=== PATIENT | male | born 1955 | race Caucasian/White ===

== ENCOUNTER 2016-06-25 01:44 | Inpatient (IN) ==
[2016-06-25] MEDS ORDERED: Ipratropium/Albuterol Neb 3 ML ONE ×2 (01:51→02:04)
[2016-06-25 02:02] LABS: ABG Base Excess 11.5 mEq/L (-2.0 to 3.0); ABG HCO3 38.9 mEQ/L (21-27); ABG Oxygen Saturation 92 % (95-98); ABG PCO2 60 mmHg (35-45); ABG PH 7.42 pH Units (7.32-7.45); ABG PO2 64 mmHg (85-104); ABG TCO2 40.7 mEq/L (20-26)
[2016-06-25 02:03] LABS: Blood Gas Liter Flow 4 L/MIN
[2016-06-25 02:10] LABS: Hematocrit 46.3 % (37.5-50.1); Hemoglobin 15.2 g/dL (12.9-16.9); Immature Granulocytes % 0.2 % (0-4); Lymphocytes # 0.4 K/mcL (0.6-4.6); Mean Corpuscular HGB Conc 32.8 g/dL (31.6-35.5); Mean Corpuscular Hemoglobin 32.5 pg (28.0-33.3); Mean Corpuscular Volume 99.1 fL (83.0-100.0); Mean Platelet Volume 9.2 fL (9.4-12.4); Monocytes # 0.4 K/mcL (0.0-1.3); Neutrophils # 3.6 K/mcL (1.6-8.9); Platelet Count 137 K/mcL (140-400); Red Blood Count 4.67 M/mcL (4.19-5.50); Red Cell Distribution Width 12.3 % (11.5-14.5); Segmented Neutrophils % 81.8 %
[2016-06-25] MEDS ORDERED: Ipratropium/Albuterol Neb 3 ML IH ONE ×2 (02:10→09:51)
[2016-06-25 02:24] LABS: BUN/Creatinine Ratio 25 (6-26); Blood Urea Nitrogen 19 mg/dL (8-26); Carbon Dioxide 34 mEq/L (19-29); Chloride 98 mEq/L (98-109); Glucose 102 mg/dL (70-99); Osmolality,Calculated 292 (280-300); Sodium 140 mEq/L (136-145); eGFR For African Americans > 60 (> 60); eGFR For Non-African Americans > 60 (> 60)
--- NOTE | 2016-06-25 02:25 | Emergency Department Note ---
Disposition Clinical Impression: Hospital acquired PNA Dyspnea Qualifiers: Dyspnea type: unspecified Qualified Code(s): R06.00 - Dyspnea, unspecified Disposition: Admitted As Inpatient Condition: Fair Referrals: Roberto Hensley CNP [Primary Care Provider] - Forms: ED Satisfaction Letter Time of Disposition: 04:36 SOB HPI - General Chief Complaint: ED Shortness of Breath/Dyspnea Stated Complaint: Dyspnea Time Seen by Provider: 06/25/16 01:51 Source: patient, family Mode of arrival: ambulatory Nursing Notes Reviewed: Yes Vital Signs Reviewed: Yes - History of Present Illness 60-year-old male presents to the emergency Department by private vehicle in respiratory distress. The patient was recently discharged yesterday evening from [facility] after a 2 day admission for the same. At this time, he did require the use of BiPAP to manage his respirations. At this time, his only complaints are of shortness of breath and a persistent cough. He denies any fever, chills, nausea, vomiting, diarrhea, or abdominal pain. He denies any chest pain associated with this shortness of breath. Patient states that he sees the weight tester here for common area nodules. He also states that he has a history of a partially collapsed lung, as well as renal cancer, for which she is currently undergoing treatment for. Pt Subjective Complaint: shortness of breath Onset (ago): [employer] Context: recent illness Severity: severe Improves with: nothing Worsens with: nothing Associated symptoms: Reports: wheezing. Denies: chest pain Treatment prior to arrival: none Cough present: Yes - Related Data Home Medications Medication Instructions Recorded Confirmed TraMADol [Ultram] 50 mg PO TID PRN 12/10/15 01/07/16 Fluticasone/Salmeterol [Advair 1 puff IH BID 01/07/16 01/14/16 250-50 Diskus] Ipratropium/Albuterol Neb [Duoneb] 3 ml IH TID 01/07/16 01/14/16 Methocarbamol [Robaxin] 750 mg PO Q4H 01/07/16 01/14/16 Nicotine Patch [Nicoderm] 7 mg TD DAILY 01/07/16 01/14/16 Nicotine Patch [Nicoderm] 14 mg TD DAILY 01/07/16 01/14/16 Nicotine Patch [Nicoderm] 21 mg TD DAILY 01/07/16 01/14/16 Previous Rx's Medication Instructions Recorded Loperamide [Imodium] 2 mg PO TID #90 capsule 12/31/15 Ondansetron [Zofran] 4 mg PO Q8HR #90 tablet 12/31/15 Ondansetron HCl 4 mg PO Q8H PRN #60 tablet 02/07/16 Amoxicillin/Clavulanate [Augmentin] 500 mg PO BIDWM #10 tablet 03/06/16 Albuterol Sulfate [Proair Hfa] 2 puff IH Q4H PRN #1 hfa.aer.ad 04/06/16 Omeprazole [PriLOSEC] 20 mg PO DAILY PRN #45 cap 04/14/16 Oxycodone HCl [Oxaydo] 5 mg PO BID PRN #60 tablet.orl 05/12/16 Temazepam [Restoril] 15 mg PO HS #30 capsule 05/12/16 Pazopanib HCl [Votrient] 800 mg PO DAILY #120 tablet 06/10/16 Allergies Allergy/AdvReac Type Severity Reaction Status Date / Time No Known Allergies Allergy Verified 12/10/15 15:06 All systems ED: reviewed and negative except as stated. Constitutional: Denies: fever, chills, weakness, weight change Eyes: Denies: eye pain, eye discharge, vision change ENT ED: Denies: ear pain, throat pain, dental pain, hearing loss, epistaxis, congestion, dysphagia Cardiovascular: Denies: chest pain, palpitations, dyspnea on exertion, edema, syncope Respiratory: Reports: as per HPI, cough, dyspnea. Denies: wheezes, hemoptysis, stridor Gastrointestinal: Denies: abdominal pain, nausea, vomiting, diarrhea, constipation, hematemesis, melena, hematochezia Genitourinary: Denies: urgency, dysuria, frequency, hematuria Musculoskeletal: Denies: back pain, neck pain, arthralgia, myalgia Integumentary: Denies: rash, abrasion, lesions Neurological: Denies: headache, weakness, numbness, paresthesias, confusion, abnormal gait, vertigo Psychiatric: Denies: anxiety, depression, suicidal thoughts, homicidal thoughts , auditory hallucinations, visual hallucinations Endocrine: Denies: fatigue Hematological/Lymphatic: Denies: easy bleeding, easy bruising Allergic/Immunologic: Denies: facial swelling, urticaria Past Medical History - Past Medical History Attestation: Yes The following information was validated with the patient. Source: patient Medical history: Reports: cancer, COPD, GERD Surgical history: Reports: no surgical history Psychiatric history: Reports: no psych history - Social History Smoking Status: Current some day smoker Smokeless Tobacco Status: No Alcohol use: Reports: none Drug use: Reports: none Physical Exam - General General appearance: alert, in distress - Head Head exam: atraumatic, normocephalic, normal inspection - Eye Eye exam: Present: normal appearance, PERRL, EOMI. Absent: nystagmus - ENT ENT exam: mucous membranes moist - Neck Neck exam: Present: normal inspection, full ROM, trachea midline - Chest Chest inspection: Present: normal inspection, symmetric chest wall rise - Respiratory Respiratory exam: Present: respiratory distress (Moderate), wheezes (expiratory wheezes noted throughout the lung periphery.). Absent: stridor, accessory muscle use, prolonged expiratory phase - Cardiovascular Cardiovascular exam: Present: regular rate, normal rhythm, normal heart sounds - Abdominal Exam Abdominal exam: Present: soft, Non-Tender, normal bowel sounds. Absent: tenderness, distention, guarding, rebound, rigidity - Extremities Exam Extremities exam: Present: normal inspection, full ROM. Absent: tenderness, pedal edema - Neurological Exam Neurological exam: Present: alert, oriented X3 - Psychiatric Psychiatric exam: Present: normal affect, normal mood - Skin Skin exam: Present: warm, dry, intact, normal color Course Course Narrative: I have discussed this patient's case with Dr. Casey. Dr. Casey has had a [id number] evaluation with the patient. 0430: I spoke to Dr. Guzman, hospitalist. Dr. Albarran requests the obtaining of blood cultures prior to admission to the hospitalist service. Vital Signs Temperature 98.1 F 06/25/16 01:46 Pulse Rate 117 06/25/16 01:46 Respiratory Rate 30 06/25/16 01:46 Blood Pressure 113/87 06/25/16 01:46 O2 Sat by Pulse Oximetry 86 06/25/16 01:46 Temperature 98.1 F 06/25/16 01:46 Pulse Rate 118 06/25/16 04:22 Respiratory Rate 22 06/25/16 04:22 Blood Pressure 117/78 06/25/16 04:22 O2 Sat by Pulse Oximetry 92 06/25/16 04:22 Oxygen Delivery Oxygen Delivery Nasal Cannula Shortness of Breath/Dyspnea - Medical Records Medical records reviewed: Yes I reviewed the patient's medical records. - Lab Data Lab results reviewed: Yes I reviewed the patient's lab results. Lab results narrative: Laboratory Last Values WBC 4.4 K/mcL (4.3-11.1) 06/25/16 02:03 RBC 4.67 M/mcL (4.19-5.50) 06/25/16 02:03 Hgb 15.2 g/dL (12.9-16.9) 06/25/16 02:03 Hct 46.3 % (37.5-50.1) 06/25/16 02:03 MCV 99.1 fL (83.0-100.0) 06/25/16 02:03 MCH 32.5 pg (28.0-33.3) 06/25/16 02:03 MCHC 32.8 g/dL (31.6-35.5) 06/25/16 02:03 RDW 12.3 % (11.5-14.5) 06/25/16 02:03 Plt Count 137 K/mcL (140-400) L 06/25/16 02:03 MPV 9.2 fL (9.4-12.4) L 06/25/16 02:03 Immature Gran % 0.2 % (0-4) 06/25/16 02:03 Seg Neutrophils % 81.8 % 06/25/16 02:03 Lymphocytes % 10.0 % 06/25/16 02:03 Monocytes % 8.0 % 06/25/16 02:03 Eosinophils % 0.0 % 06/25/16 02:03 Basophils % 0.0 % 06/25/16 02:03 Neutrophils # 3.6 K/mcL (1.6-8.9) 06/25/16 02:03 Lymphocytes # 0.4 K/mcL (0.6-4.6) L 06/25/16 02:03 Monocytes # 0.4 K/mcL (0.0-1.3) 06/25/16 02:03 Eosinophils # 0.0 K/mcL (0.0-0.6) 06/25/16 02:03 Basophils # 0.0 K/mcL (0.0-0.2) 06/25/16 02:03 Platelet Estimate Slight Decrease (Normal) L 06/25/16 02:03 ABG pH 7.42 pH Units (7.32-7.45) 06/25/16 01:57 ABG pCO2 60 mmHg (35-45) H 06/25/16 01:57 ABG pO2 64 mmHg (85-104) L 06/25/16 01:57 ABG HCO3 38.9 mEQ/L (21-27) H 06/25/16 01:57 ABG Total CO2 40.7 mEq/L (20-26) H 06/25/16 01:57 ABG O2 Saturation 92 % (95-98) L 06/25/16 01:57 ABG Base Excess 11.5 mEq/L (-2.0 to 3.0) H 06/25/16 01:57 Liter Flow 4 L/MIN 06/25/16 01:57 Blood Gas Modality NC 06/25/16 01:57 Sodium 140 mEq/L (136-145) 06/25/16 02:03 Potassium 4.0 mEq/L (3.5-4.5) 06/25/16 02:03 Chloride 98 mEq/L (98-109) 06/25/16 02:03 Carbon Dioxide 34 mEq/L (19-29) H 06/25/16 02:03 BUN 19 mg/dL (8-26) 06/25/16 02:03 Creatinine 0.75 mg/dL (0.72-1.25) 06/25/16 02:03 Est GFR ( Amer) > 60 (> 60) 06/25/16 02:03 Est GFR (Non-Af Amer) > 60 (> 60) 06/25/16 02:03 BUN/Creatinine Ratio 25 (6-26) 06/25/16 02:03 Glucose 102 mg/dL (70-99) H 06/25/16 02:03 Calculated Osmolality 292 (280-300) 06/25/16 02:03 Calcium 9.0 mg/dL (8.6-10.8) 06/25/16 02:03 Troponin I 0.11 ng/mL (0-0.03) H* 06/25/16 02:03 B-Natriuretic Peptide 920 pg/mL (0-100) H 06/25/16 02:03 Result diagrams: 06/25/16 02:03 06/25/16 02:03 Lab Results 06/25/16 06/25/16 06/25/16 Range/Units 01:57 02:03 02:03 WBC 4.4 (4.3-11.1) K/mcL RBC 4.67 (4.19-5.50) M/mcL Hgb 15.2 (12.9-16.9) g/dL Hct 46.3 (37.5-50.1) % MCV 99.1 (83.0-100.0) fL MCH 32.5 (28.0-33.3) pg MCHC 32.8 (31.6-35.5) g/dL RDW 12.3 (11.5-14.5) % Plt Count 137 L (140-400) K/mcL MPV 9.2 L (9.4-12.4) fL Immature Gran % 0.2 (0-4) % Seg Neutrophils % 81.8 % Lymphocytes % 10.0 % Monocytes % 8.0 % Eosinophils % 0.0 % Basophils % 0.0 % Neutrophils # 3.6 (1.6-8.9) K/mcL Lymphocytes # 0.4 L (0.6-4.6) K/mcL Monocytes # 0.4 (0.0-1.3) K/mcL Eosinophils # 0.0 (0.0-0.6) K/mcL Basophils # 0.0 (0.0-0.2) K/mcL Platelet Estimate Slight Decrease L (Normal) ABG pH 7.42 (7.32-7.45) pH Units ABG pCO2 60 H (35-45) mmHg ABG pO2 64 L (85-104) mmHg ABG HCO3 38.9 H (21-27) mEQ/L ABG Total CO2 40.7 H (20-26) mEq/L ABG O2 Saturation 92 L (95-98) % ABG Base Excess 11.5 H (-2.0 to 3.0) mEq/L Liter Flow 4 L/MIN Blood Gas Modality NC Sodium 140 (136-145) mEq/L Potassium 4.0 (3.5-4.5) mEq/L Chloride 98 (98-109) mEq/L Carbon Dioxide 34 H (19-29) mEq/L BUN 19 (8-26) mg/dL Creatinine 0.75 (0.72-1.25) mg/dL Est GFR ( Amer) > 60 (> 60) Est GFR (Non-Af Amer) > 60 (> 60) BUN/Creatinine Ratio 25 (6-26) Glucose 102 H (70-99) mg/dL Calculated Osmolality 292 (280-300) Calcium 9.0 (8.6-10.8) mg/dL Troponin I (0-0.03) ng/mL B-Natriuretic Peptide (0-100) pg/mL 06/25/16 06/25/16 Range/Units 02:03 02:03 WBC (4.3-11.1) K/mcL RBC (4.19-5.50) M/mcL Hgb (12.9-16.9) g/dL Hct (37.5-50.1) % MCV (83.0-100.0) fL MCH (28.0-33.3) pg MCHC (31.6-35.5) g/dL RDW (11.5-14.5) % Plt Count (140-400) K/mcL MPV (9.4-12.4) fL Immature Gran % (0-4) % Seg Neutrophils % % Lymphocytes % % Monocytes % % Eosinophils % % Basophils % % Neutrophils # (1.6-8.9) K/mcL Lymphocytes # (0.6-4.6) K/mcL Monocytes # (0.0-1.3) K/mcL Eosinophils # (0.0-0.6) K/mcL Basophils # (0.0-0.2) K/mcL Platelet Estimate (Normal) ABG pH (7.32-7.45) pH Units ABG pCO2 (35-45) mmHg ABG pO2 (85-104) mmHg ABG HCO3 (21-27) mEQ/L ABG Total CO2 (20-26) mEq/L ABG O2 Saturation (95-98) % ABG Base Excess (-2.0 to 3.0) mEq/L Liter Flow L/MIN Blood Gas Modality Sodium (136-145) mEq/L Potassium (3.5-4.5) mEq/L Chloride (98-109) mEq/L Carbon Dioxide (19-29) mEq/L BUN (8-26) mg/dL Creatinine (0.72-1.25) mg/dL Est GFR ( Amer) (> 60) Est GFR (Non-Af Amer) (> 60) BUN/Creatinine Ratio (6-26) Glucose (70-99) mg/dL Calculated Osmolality (280-300) Calcium (8.6-10.8) mg/dL Troponin I 0.11 H* (0-0.03) ng/mL B-Natriuretic Peptide 920 H (0-100) pg/mL - Radiology Data Radiology results reviewed: Yes I reviewed the patient's radiology results. Chest X-Ray 06/25/16 01:57 IMPRESSION: 1. New moderate area of consolidation the right middle lobe. 2. Mild blunting of left costophrenic angle may represent a trace effusion. 3. Emphysema. 4. Redemonstration of mediastinal hilar lymphadenopathy, including large calcified right hilar lymph nodes. D/ / Thierry Singer MD / Thierry Singer MD Interpreting Provider: Thierry Singer MD Chest CTA 06/25/16 03:04 IMPRESSION: 1. No evidence of pulmonary embolism or acute pulmonary abnormality. 2. New large area of consolidation replacing most of the right middle lobe. Additional scattered airspace and reticular opacities in the right upper, right lower and left lower lobes. Overall findings are suspicious for multifocal pneumonia. 3. Stable mediastinal hilar lymphadenopathy. 4. Partial visualization of a large right renal mass. 5. Reflux of contrast into the intrahepatic veins suggestive of right heart dysfunction. D/ / Thierry Singer MD / Thierry Singer MD Interpreting Provider: Thierry Singer MD - EKG Data EKG attestation: Yes I reviewed and interpreted this EKG. EKG results narrative: EKG reviewed by Dr. Osman as well. EKG shows a sinus rhythm with frequent ventricular premature complexes and a marked right axis deviation. There is also a septal myocardial infarction of indeterminate age that was present on his most recent EKG dated 01/06/16.
[2016-06-25 02:29] LABS: Platelet Estimate Slight Decrease (Normal)
[2016-06-25] MEDS ORDERED: Piperacillin/Tazobactam 3.375 GM in D5% in Water (Mini-Bag+) 100 ML IVPB ONE (04:16)
[2016-06-25] MEDS ORDERED: Aspirin 81 MG TAB.CHEW PO ONE (04:16)
[2016-06-25 05:04] LABS: Alanine Aminotransferase 25 Units/L (0-55); Albumin 3.1 g/dL (3.5-5.0); Albumin/Globulin Ratio 0.9 (1.1-2.2); Alkaline Phosphatase 90 Units/L (38-126); Aspartate Amino Transferase 29 Units/L (5-34); Bilirubin,Direct 0.3 mg/dL (0.0-0.5); Bilirubin,Indirect 0.3 mg/dL (0.0-1.2); Bilirubin,Total 0.6 mg/dL (0.2-1.2); Globulin 3.6 g/dL (2.4-3.5); Total Protein 6.7 g/dL (6.0-8.3)
[2016-06-25] MEDS ORDERED: methylPREDNISolone 125 MG/2 ML VIAL IVP ONE (08:34)
[2016-06-25] MEDS ORDERED: Albuterol 2.5 MG/3 ML NEBULIZER IH ONE (08:34)
[2016-06-25] MEDS ORDERED: *HR* Heparin 5,000 UNIT/ML VIAL IVP PRN ×2 (08:40)
[2016-06-25] MEDS ORDERED: *HR* Heparin 5,000 UNIT/ML VIAL IVP ONE (08:40)
[2016-06-25] MEDS ORDERED: Simethicone 80 MG TAB.CHEW PO PRN (08:44)
[2016-06-25] MEDS ORDERED: Heparin 25,000 UNIT/500 ML D5W 25,000 UNIT/500 ML MLS IVC SCH (08:45)
--- NOTE | 2016-06-25 08:53 | Internal Med History&Physical ---
Date of Encounter: 06/25/16 Time of Encounter: 08:47 Assessment and Plan (1) Hypercapnic respiratory failure Current visit: Yes Status: Acute -Respiratory failure multifactorial due to healthcare associated pneumonia, COPD exacerbation, and congestive heart failure. Patient 15 L of NASAL oxygen during my interview still with accessory muscles use so he will be placed on BiPAP. Arterial blood gas will be obtained. He will be transferred to [address] [place] [address] for closer monitoring. He is full code Qualifiers: Qualified Code(s): J96.92 - Respiratory failure, unspecified with hypercapnia (2) HCAP (healthcare-associated pneumonia) Current visit: Yes Status: Acute He will be started on vancomycin Zosyn Levaquin. Sputum blood cultures (3) Acute congestive heart failure with left ventricular diastolic dysfunction Current visit: Yes Status: Acute IV lasix will be started. Carey catheter will be placed. strict monitoring of intake and output. Electrocardiogram shows T wave inversions in lateral chest leads. Pattern of EKG may suggest stress cardiomyopathy. However occlusive coronary artery disease has to be ruled out. (4) NSTEMI (non-ST elevated myocardial infarction) Current visit: Yes Status: Acute Troponin 0.11. He is denying any chest pain. Because of his EKG changes I will start the patient on low-dose heparin drip. Aspirin will be started. I will hold off metoprolol for now given his respiratory status (5) Renal cell carcinoma of right kidney Current visit: No Status: Chronic Internal Medicine - H&P: HPI Chief complaint: SOB History of present illness: Mr. Abrams is a 60 year old male with unfortunate history of recently diagnosed metastatic renal cell carcinoma, COPD started 2 weeks ago on nasal oxygen and reactive airway disease presents to the emergency room today with main complaint shortness of breath. Patient has been progressively short of breath over the past week or so. He was hospitalized with an outside facility during which she has required BiPAP support and was discharged 2 days ago to home. He was not on any antibiotics. He notices decline in his respiratory status; is currently more short of breath at rest, sitting upright as this position helps him breath better. He is having a nonproductive cough, and frequent episodes of sweating related to his severe respiratory distress. He denies any chest pain. No hemoptysis. No lower extremity swelling. During my interview with the patient he was tripoding with accessory muscles use, speaking in two word sentences. Past Med Surg Social Fam HX - Past Medical History Medical history: cancer, COPD, GERD Psychiatric history: no psych history - Past Surgical History Surgical History: no surgical history - Social History Smoking Status: Current some day smoker Smokeless Tobacco Status: No Alcohol use: none Drug use: none - Family History Father Cause of : cancer Hx Family Cancer: Yes (esophageal cancer) Mother Cause of : pancreatic cancer Hx Family Cancer: Yes (pancreatic) Internal Medicine - H&P: Meds Fluticasone/Salmeterol [Advair 250-50 Diskus] 1 puff IH BID 01/07/16 [History] Ipratropium/Albuterol Neb [Duoneb] 3 ml IH TID 01/07/16 [History] Nicotine Patch [Nicoderm] 7 mg TD DAILY 01/07/16 [History] Ondansetron HCl 4 mg PO Q8H PRN #60 tablet 02/07/16 [Rx] Albuterol Sulfate [Proair Hfa] 2 puff IH Q4H PRN #1 hfa.aer.ad 04/06/16 [Rx] Omeprazole [PriLOSEC] 20 mg PO DAILY PRN #45 cap 04/14/16 [Rx] Oxycodone HCl [Oxaydo] 5 mg PO BID PRN #60 tablet.orl 05/12/16 [Rx] Pazopanib HCl [Votrient] 800 mg PO DAILY #120 tablet 06/10/16 [Rx] Acetaminophen [Tylenol] 1,000 mg PO Q6HR PRN 06/25/16 [History] Ipratropium/Albuterol Sulfate [Combivent Respimat Inhal [place]] 1 puff IH QID [History] PredniSONE [Prednisone] 10 mg PO AD 06/25/16 [History] Simethicone [Gas-X] 80 mg PO TID PRN 06/25/16 [History] Allergies No Known Allergies Allergy (Verified 12/10/15 15:06) All Systems PM: A 10-system review of systems was performed and is negative for pertinent findings except as documented above in the HPI. Review of systems: Ten point review of systems is negative except for HPI - Constitutional Vitals: Temp Pulse Resp BP Pulse Ox 98.0 F 106 20 142/93 95 06/25/16 06:07 06/25/16 06:07 06/25/16 06:07 06/25/16 06:07 06/25/16 06:51 Exam: Gen.: patient's alert in moderate respiratory distress cardiac: normal S1 S2 no additional sounds or murmurs tachycardic chest: diminished entry expiratory wheezing abdomen soft nontender nondistended normal bowel sounds lower extremities no swelling Internal Med - H&P Results - Labs CBC & Chem 7: 06/25/16 02:03 06/25/16 02:03
[2016-06-25] MEDS ORDERED: Vancomycin 1,500 MG in D5% in Water 250 ML IVPB ONE (09:00)
[2016-06-25] MEDS ORDERED: Piperacillin/Tazobactam 3.375 GM in D5% in Water (Mini-Bag+) 100 ML IVPB SCH (09:00)
[2016-06-25 09:04] LABS: ABG Base Excess 13.3 mEq/L (-2.0 to 3.0); ABG HCO3 40.8 mEQ/L (21-27); ABG Oxygen Saturation 99 % (95-98); ABG PCO2 60 mmHg (35-45); ABG PH 7.44 pH Units (7.32-7.45); ABG PO2 128 mmHg (85-104); ABG TCO2 42.6 mEq/L (20-26)
[2016-06-25 09:05] LABS: Blood Gas FiO2 40 %
[2016-06-25] MEDS: Furosemide 40 MG/4 ML VIAL IVP SCH (09:06)
[2016-06-25 09:27] LABS: INR 1.1; Prothrombin Time 11.9 Seconds (9.4-12.1)
[2016-06-25] MEDS ORDERED: Chloraseptic Spray 177 ML BOTTLE MM PRN (09:27)
[2016-06-25 09:30] LABS: Activated Partial Thrombo Time 30.8 Seconds (26.0-36.0)
[2016-06-25 09:37] LABS: Hematocrit 48.3 % (37.5-50.1); Hemoglobin 15.8 g/dL (12.9-16.9); Mean Corpuscular HGB Conc 32.7 g/dL (31.6-35.5); Mean Corpuscular Hemoglobin 32.7 pg (28.0-33.3); Mean Platelet Volume 9.8 fL (9.4-12.4); Platelet Count 146 K/mcL (140-400); Red Blood Count 4.83 M/mcL (4.19-5.50); Red Cell Distribution Width 12.4 % (11.5-14.5)
[2016-06-25] MEDS: Ipratropium/Albuterol Neb 3 ML IH SCH ×5 (10:05→23:41)
[2016-06-25] MEDS: Pantoprazole 40 MG VIAL IVP SCH (10:46)
[2016-06-25] MEDS: Nicotine 7 MG PATCH.TD24 TD SCH (10:46)
[2016-06-25] MEDS: Aspirin Enteric Coated 81 MG Tablet PO SCH (10:46)
[2016-06-25] MEDS: Budesonide/Formoterol 80/4.5 MDI IH SCH ×2 (10:47→19:54)
--- NOTE | 2016-06-25 11:38 | Cardiology Consult Note ---
Date of Encounter: 06/25/16 Time of Encounter: 11:25 Assessment and Plan (1) Elevated troponin Current Visit: Yes Status: Acute Mild troponin elevation in the setting of acute hypoxic and hypercapnic respiratory distress/ pneumonia. Denies chest pain. Labored respirations on my exam. Denies previous history of CAD. Check TTE. CTA negative for PE. Continue heparin gtt for now. Asa, statin, and BB. (2) Abnormal EKG Current Visit: Yes Status: Acute Inferior and anterior/lateral T wave changes on EKG. May be secondary to demand ischemia from acute repiratory failure. Serial EKG. Check TTE. (3) Hypercapnic respiratory failure Current Visit: Yes Status: Acute Acute respiratory failure likely secondary to pnuemonia/COPD. Denies weight gain or edema. No history of CHF. BNP is elevated at 902 and CTA showed finding concerning for right sided dysfunction. Agree with TTE to further evaluate. Also known renal cell cancer with mets to lung/ previous partial collapsed lung. Follows with pulmonology and oncology. Currently on Pazopanib over last 6 months. Qualifiers: Qualified Code(s): J96.92 - Respiratory failure, unspecified with hypercapnia (4) HCAP (healthcare-associated pneumonia) Current Visit: Yes Status: Acute Management per IM. On IV antibiotics. Discussion w patient/family: The assessment and plan as outlined above was discussed with the patient and/or family members who expressed understanding and agreement. All questions were answered. Thank you for involving us in the care of your patient. Please call with any questions. History of Present Illness Consult date: 06/25/16 Requesting physician: Marcelo Alvarado Consult reason: elevated troponin, EKG changes Chief complaint: Increasing SOB History of present illness: Mr. Abrams is a 60 year old male who presents with increasing SOB over the last week. He was found to have right middle lobe pneumonia. Cardiology consulted for elevated troponin and EKG changes. He was recently hospitalized at outside hospital for COPD exacerbation. He was treated with bipap and breathing treatments. After being discharged his SOB increased. He denies chest pain. Denies weight gain or edema. He does admit to orthopnea and is declining to wear bi-pap because it makes him feel like he cannot breath. He has a history of renal cell carcinoma with mets to his lung diagnosed earlier this year, Currently on chemotherapy pill on home O2. He denies previous history of CAD or CHF. Denies previous cardiac work-up. Work-up this admission shows troponin elevation at 0.11, 0.12. EKG shows ST with new T wave inversion in the inferior and anterior lateral leads. There are frequent PVC. CTA of the chest is negative for PE but does show consolidation RML concerning for pneumonia, new from previous report. There was stable mediastinal lymphadenopathy, partial visualization of large right renal mass, and reflux of contrast into the intra-hepatic vein suggestive of right heart dysfunction. Echocardiogram is pending. Past Med Surg Social Fam HX - Past Medical History Attestation: Yes The following information was validated with the patient. Medical history: cancer, COPD, GERD Psychiatric history: no psych history - Past Surgical History Surgical History: no surgical history - Social History Smoking Status: Current some day smoker Smokeless Tobacco Status: No Alcohol use: none Drug use: none - Family History Father Cause of : cancer Hx Family Cancer: Yes (esophageal cancer) Mother Cause of : pancreatic cancer Hx Family Cancer: Yes (pancreatic) Medications and Allergies Fluticasone/Salmeterol [Advair 250-50 Diskus] 1 puff IH BID 01/07/16 [History] Ipratropium/Albuterol Neb [Duoneb] 3 ml IH TID 01/07/16 [History] Nicotine Patch [Nicoderm] 7 mg TD DAILY 01/07/16 [History] Ondansetron HCl 4 mg PO Q8H PRN #60 tablet 02/07/16 [Rx] Albuterol Sulfate [Proair Hfa] 2 puff IH Q4H PRN #1 hfa.aer.ad 04/06/16 [Rx] Omeprazole [PriLOSEC] 20 mg PO DAILY PRN #45 cap 04/14/16 [Rx] Oxycodone HCl [Oxaydo] 5 mg PO BID PRN #60 tablet.orl 05/12/16 [Rx] Pazopanib HCl [Votrient] 800 mg PO DAILY #120 tablet 06/10/16 [Rx] Acetaminophen [Tylenol] 1,000 mg PO Q6HR PRN 06/25/16 [History] Ipratropium/Albuterol Sulfate [Combivent Respimat Inhal [place]] 1 puff IH QID [History] PredniSONE [Prednisone] 10 mg PO AD 06/25/16 [History] Simethicone [Gas-X] 80 mg PO TID PRN 06/25/16 [History] Allergies No Known Allergies Allergy (Verified 12/10/15 15:06) All Systems Review: A 10-system review of systems was performed and is negative for pertinent findings except as documented above in the HPI. Physical Examination Vital Signs, Last 4 Hours Temp Pulse Resp BP Pulse Ox 06/25/16 11:19 97.5 F L 136 20 114/82 94 06/25/16 10:07 25 88 General: Conversant, Other (ill appearing, frail male. ) HEENT: Atraumatic, Normocephaly, Mucus Membranes Moist Neck: No JVD, Normal carotid pulses Cardiac: Reg Rate and Rhythm, Normal S1 and S2, No Murmur Lungs: Other (Pt sitting in tripod position with labored respirations. Lung sounds significantly decreased throughout with faint rails in right mid and upper lobes. ) Neuro: Alert and responsive, No focal deficits noted Abdomen: Soft, Non-Tender Skin: No rashes noted on visualized skin Musculoskeletal: No Chest Wall Tenderness Extremities: No Clubbing, No Cyanosis, No Edema, Normal Pulses Results 06/25/16 08:56 06/25/16 02:03 Lab Results 06/25/16 06/25/16 06/25/16 08:56 08:56 08:56 WBC 3.8 L Hgb 15.8 Hct 48.3 Plt Count 146 INR 1.1 APTT 30.8 Troponin I 0.12 H* Chest X-Ray 06/25/16 01:57 IMPRESSION: 1. New moderate area of consolidation the right middle lobe. 2. Mild blunting of left costophrenic angle may represent a trace effusion. 3. Emphysema. 4. Redemonstration of mediastinal hilar lymphadenopathy, including large calcified right hilar lymph nodes. D/ / Thierry Singer MD / Thierry Singer MD Interpreting Provider: Thierry Singer MD Chest CTA 06/25/16 03:04 IMPRESSION: 1. No evidence of pulmonary embolism or acute pulmonary abnormality. 2. New large area of consolidation replacing most of the right middle lobe. Additional scattered airspace and reticular opacities in the right upper, right lower and left lower lobes. Overall findings are suspicious for multifocal pneumonia. 3. Stable mediastinal hilar lymphadenopathy. 4. Partial visualization of a large right renal mass. 5. Reflux of contrast into the intrahepatic veins suggestive of right heart dysfunction. D/ / 06/25/2016 06:59:28 Thierry Singer MD / [facility] Interpreting Provider: Thierry Singer MD - Imaging and Cardiology Echo: pending - EKG Interpretation EKG results cardiology: personally reviewed Consult Discharge Plan - Plan Referrals: Roberto Hensley CNP [Primary Care Provider] -
[2016-06-25] MEDS ORDERED: Dexmedetomidine HCl 400 MCG/100 ML MLS IVC ONE (11:53)
[2016-06-25] MEDS ORDERED: methylPREDNISolone 125 MG/2 ML VIAL IVP SCH (12:00)
[2016-06-25] MEDS: Dexmedetomidine HCl 400 MCG/100 ML MLS IVC SCH (12:35)
--- NOTE | 2016-06-25 12:37 | Pulmonology History & Physical ---
<VishalYaw Joe - Last Filed: 06/25/16 12:35> Date of Encounter: 06/25/16 Time of Encounter: 12:00 Assessment and Plan (1) Acute congestive heart failure with left ventricular diastolic dysfunction Current visit: Yes Status: Acute 1. Hypercapnic respiratory failure In the setting of HCAP, COPD, and CHF. SIRS (+): HR 136, RR 20 Sepsis from pulmonary source. ABG CO2 on admission = 60. WBC 3.8. Likely secondary to chemotherapy, not sepsis. Lactate 1.7. - BiPap - Pressedex titrate to minimal dose for patient comfort. - Begin DuoNeb, Symbicort, Mucinex - Begin solumedrol 60mg IV Q8hr - Continue Levaquin, day 1 - Discontinue Zosyn to protect patient's renal function - Begin Ceftriaxone - Draw urine strep ag and legionella ag - Blood cultures pending - Sputum cultures pending 2. HCAP 25 Jun 2016: CXR: RML consolidation, RUL and RLL scattered opacities; consistent with multifocal pneumonia. - Plan as above. 3. Acute CHF with LV diastolic dysfunction No Cardiac Echo on record BNP 920 - Cardiac echo - Cardiology is following and their input appreciated. 4. NSTEMI No chest pain at this time. EKG in ER interpreted as - lateral T-wave inversions. Troponin 0.11 > 0.12 Demand ischemia vs NSTEMI. Repeat EKG in ICU at 13:58 06/25/16: Tracing somewhat obscured by PVCs. Sinus tachycardia with rate of 119, Frequent PVCs, Right axis, 5-8mm T-wave inversion in inferior and lateral leads, 1/2mm ST depression in inferior and lateral leads. Compared to previous EKG dated 01/06/16: Q-waves present in Va and V2. PVCs and STT changes are new. - Continue to trend troponin. - Continue ASA. - Continue low dose heparin IV drip. - Cardiology is following and their input appreciated. 5. Renal cell carcinoma of right kidney Diagnosed November 2015. Currently on PO chemotherapy. Oncologist: Imani Molina DVT Prophylaxis: On heparin drip as above. PUD prophylaxis: IV Protonix Diet: NPO for now. Assessing improvement on and toleration of BiPap. Keep NPO in case of intubation. Other: electrolyte protocol (2) HCAP (healthcare-associated pneumonia) Current visit: Yes Status: Acute Plan as above (3) Hypercapnic respiratory failure Current visit: Yes Status: Acute Plan as above Qualifiers: Qualified Code(s): J96.92 - Respiratory failure, unspecified with hypercapnia (4) NSTEMI (non-ST elevated myocardial infarction) Current visit: Yes Status: Acute Plan as above (5) Renal cell adenoma of right kidney Current visit: No Status: Chronic Plan as above History of Present Illness Chief complaint: dyspnea HPI: Mr. Abrams is a 60 year old male who presented to the ER this morning with ANDREW , was admitted to the medical floor for hypercapnic respiratory failure where he decompensated and was transferred to the ICU. On the floor, patient could not tolerate BiPao leading to his non-compliance leading to his decompensation. Currently he is in respiratory distress - accessory muscle use, tripoding, 2- 3 word conversational dyspnea on 4L NC, O2 sat 88%. He was discharged 2 days ago from outside hospital with similar symptoms. Overall, his dyspnea has been ongoing and progressive for the past week. History of COPD, basline O2 supplementation is 2L via NC at all times. History of right renal cell carcinoma, diagnosed Nov 2015, currently undergoing PO chemotherapy, oncologist = Dr. Alvarez at [place]. PMH: COPD, Rt renal cell carcinoma. No hx CAD, ACS, CHF. Habits: Tobacco dependence. Home COPD regimen: 2L NC supplemental O2, Advair, ProAir, Duoneb, prednisone 10mg. Oncologist: Dr. Alvarez Chemotherapy: Pazopanib 800mg PO Qdaily. Past Med Surg Social Fam HX - Past Medical History Medical history: cancer, COPD, GERD Psychiatric history: no psych history - Past Surgical History Surgical History: no surgical history - Social History Smoking Status: Current some day smoker Smokeless Tobacco Status: No Alcohol use: none Drug use: none - Family History Father Cause of : cancer Hx Family Cancer: Yes (esophageal cancer) Mother Cause of : pancreatic cancer Hx Family Cancer: Yes (pancreatic) Medications and Allergies Fluticasone/Salmeterol [Advair 250-50 Diskus] 1 puff IH BID 01/07/16 [History] Ipratropium/Albuterol Neb [Duoneb] 3 ml IH TID 01/07/16 [History] Nicotine Patch [Nicoderm] 7 mg TD DAILY 01/07/16 [History] Ondansetron HCl 4 mg PO Q8H PRN #60 tablet 02/07/16 [Rx] Albuterol Sulfate [Proair Hfa] 2 puff IH Q4H PRN #1 hfa.aer.ad 04/06/16 [Rx] Omeprazole [PriLOSEC] 20 mg PO DAILY PRN #45 cap 04/14/16 [Rx] Oxycodone HCl [Oxaydo] 5 mg PO BID PRN #60 tablet.orl 05/12/16 [Rx] Pazopanib HCl [Votrient] 800 mg PO DAILY #120 tablet 06/10/16 [Rx] Acetaminophen [Tylenol] 1,000 mg PO Q6HR PRN 06/25/16 [History] Ipratropium/Albuterol Sulfate [Combivent Respimat Inhal [place]] 1 puff IH QID [History] PredniSONE [Prednisone] 10 mg PO AD 06/25/16 [History] Simethicone [Gas-X] 80 mg PO TID PRN 06/25/16 [History] Allergies No Known Allergies Allergy (Verified 12/10/15 15:06) All Systems: A 10-system review of systems was performed and is negative for pertinent findings except as documented above in the HPI. - Constitutional Constitutional: fatigue, no fever(s), no headache(s) - EENT Nose, mouth and throat: no dizziness, no dysphagia, no headache(s) - Cardiovascular Cardiovascular: dyspnea, no chest pain, no diaphoresis, no edema, no lightheadedness, no palpitations - Respiratory Respiratory: cough, dyspnea, wheezing, no hemoptysis, no pain with cough - Gastrointestinal Gastrointestinal: no abdominal pain, no diarrhea, no hematochezia, no melena, no nausea, no vomiting - Musculoskeletal Musculoskeletal: no back pain, no neck pain - Neurological Neurological: no confusion, no focal weakness, no lack of coordination, no loss of vision, no numbness, no paresthesias Physical Examination Vital Signs: Vital Signs, Last 4 Hours Temp Pulse Resp BP Pulse Ox 06/25/16 12:04 132 06/25/16 11:19 97.5 F L 136 20 114/82 94 06/25/16 10:07 25 88 Tachycardic, tachypnic, hypoxia with O2 sat 86-88% on supplemental O2. General appearance: alert, appears uncomfortable, other (Cachectic. Respiratory distress - accessory mm use, tripoding, 2-3 word conversational dyspnea on 4L NC.) Eyes: nonicteric ENT: oropharynx moist Neck: supple, no JVD Effort: very labored Auscultation: bilateral: wheezes, rales Cardiovascular: regular rate and rhythm Gastrointestinal: normoactive bowel sounds, soft, non-tender, non-distended Integumentary: normal Extremities: no cyanosis, no edema, pink and warm, pulses normal Musculoskeletal: no deformities normal mental status, non-focal exam, pupils equal and round mood appropriate, affect normal Results - Laboratory Findings CBC and BMP: 06/25/16 08:56 06/25/16 02:03 ABG ABG pH 7.44 pH Units (7.32-7.45) 06/25/16 09:00 ABG pCO2 60 mmHg (35-45) H 06/25/16 09:00 ABG pO2 128 mmHg (85-104) H 06/25/16 09:00 ABG O2 Saturation 99 % (95-98) H 06/25/16 09:00 PT/INR, D-dimer PT 11.9 Seconds (9.4-12.1) 06/25/16 08:56 Abnormal lab findings: Abnormal lab results WBC 3.8 K/mcL (4.3-11.1) L 06/25/16 08:56 Lymphocytes # 0.4 K/mcL (0.6-4.6) L 06/25/16 02:03 Platelet Estimate Slight Decrease (Normal) L 06/25/16 02:03 ABG pCO2 60 mmHg (35-45) H 06/25/16 09:00 ABG pO2 128 mmHg (85-104) H 06/25/16 09:00 ABG HCO3 40.8 mEQ/L (21-27) H 06/25/16 09:00 ABG Total CO2 42.6 mEq/L (20-26) H 06/25/16 09:00 ABG O2 Saturation 99 % (95-98) H 06/25/16 09:00 ABG Base Excess 13.3 mEq/L (-2.0 to 3.0) H 06/25/16 09:00 Carbon Dioxide 34 mEq/L (19-29) H 06/25/16 02:03 Glucose 102 mg/dL (70-99) H 06/25/16 02:03 Creatine Kinase 203 Units/L (30-200) H 06/25/16 08:56 Troponin I 0.12 ng/mL (0-0.03) H* 06/25/16 08:56 B-Natriuretic Peptide 920 pg/mL (0-100) H 06/25/16 02:03 Albumin 3.1 g/dL (3.5-5.0) L 06/25/16 02:03 Globulin 3.6 g/dL (2.4-3.5) H 06/25/16 02:03 Albumin/Globulin Ratio 0.9 (1.1-2.2) L 06/25/16 02:03 - Diagnostic Findings Chest x-ray: report reviewed, image reviewed CT scan - chest: report reviewed, image reviewed <Sharon Rahman - Last Filed: 06/25/16 15:49> Date of Encounter: 06/25/16 History of Present Illness HPI: Mr. Abrams is a 60 year old male All Systems: A 10-system review of systems was performed and is negative for pertinent findings except as documented above in the HPI. Physical Examination Vital Signs: Vital Signs, Last 4 Hours Pulse Resp BP Pulse Ox 06/25/16 15:11 101 06/25/16 15:08 101 21 84/72 96 06/25/16 13:36 114 28 102/82 95 06/25/16 12:04 132 Results - Laboratory Findings CBC and BMP: 06/25/16 08:56 06/25/16 02:03 ABG ABG pH 7.44 pH Units (7.32-7.45) 06/25/16 09:00 ABG pCO2 60 mmHg (35-45) H 06/25/16 09:00 ABG pO2 128 mmHg (85-104) H 06/25/16 09:00 ABG O2 Saturation 99 % (95-98) H 06/25/16 09:00 PT/INR, D-dimer PT 11.9 Seconds (9.4-12.1) 06/25/16 08:56 Abnormal lab findings: Abnormal lab results WBC 3.8 K/mcL (4.3-11.1) L 06/25/16 08:56 Lymphocytes # 0.4 K/mcL (0.6-4.6) L 06/25/16 02:03 Platelet Estimate Slight Decrease (Normal) L 06/25/16 02:03 ABG pCO2 60 mmHg (35-45) H 06/25/16 09:00 ABG pO2 128 mmHg (85-104) H 06/25/16 09:00 ABG HCO3 40.8 mEQ/L (21-27) H 06/25/16 09:00 ABG Total CO2 42.6 mEq/L (20-26) H 06/25/16 09:00 ABG O2 Saturation 99 % (95-98) H 06/25/16 09:00 ABG Base Excess 13.3 mEq/L (-2.0 to 3.0) H 06/25/16 09:00 Carbon Dioxide 34 mEq/L (19-29) H 06/25/16 02:03 Glucose 102 mg/dL (70-99) H 06/25/16 02:03 Troponin I 0.09 ng/mL (0-0.03) H* 06/25/16 14:26 B-Natriuretic Peptide 920 pg/mL (0-100) H 06/25/16 02:03 Albumin 3.1 g/dL (3.5-5.0) L 06/25/16 02:03 Globulin 3.6 g/dL (2.4-3.5) H 06/25/16 02:03 Albumin/Globulin Ratio 0.9 (1.1-2.2) L 06/25/16 02:03 - Attending Attestation I examined this patient and my medical decision-making was reviewed with the CONVEYOR WORKER/PA/Advanced Practice Nurse/Resident Physician. I agree with the documented findings, disposition and treatment plan as described except to the extent set forth below. Patient seen and examined. Dr. Alvarado called me today to transfer this patient to ICU because his respirator status is worsening and he is not tolerating BiPAP ad may need to be on the ventilator. I went to examine and evaluate patient. Labs, radiology, chart personally reviewed. Agree with resident's history and physical, assessment, plan with following comments: REHAB NURSING TECH: Patient follows commands, however lethargic, Pulmonary: Acceptable oxygenation and ventilation on the BiPAP and hand or stand his condition could deteriorate that might need invasive mechanical ventilation. We will continue broad-spectrum antibiotic for possibility of healthcare associated pneumonia and also pneumonia in immunocompromised patient. If clinically does not improve, then we will plan for bronchoscopy.. Cardiovascular: BP is acceptable. Patient has troponin leak and need to check 12 leads ECG and echo before we stop Heparin. Will consider cardiology consult if Troponin continue to increase. GI: Nutrition per dietary and GI prophylaxis per routine and for next 24 hours to be careful with diet if he needs intubation. Heme: DVT prophylaxis per routine ID: Continue antibiotics and plan to de-escalation. Patient meet sepsis criteria and continue IVF Renal; urine out put and renal funtion reviewed Endorcine: blood glucose is monitored Lines: all lines checked and no evidence of infections Skin: skin care to prevent pressure ulcers per nursing routine care Overall patient has significant comorbidities with evidence of sepsis secondary to pneumonia and his pulmonary status is tenuous, will keep to monitor in ICU. I spent 35 min of Critical Care time with this patient. It involved decision making of high complexity to assess, manipulate, and support vital organ system failure and/or to prevent further life threatening deterioration of the patient' s condition. The time involved in the performance of separately reportable procedures was not counted toward critical care time.
[2016-06-25] MEDS: *HR* OxyCODONE Immed Rel 5 MG TABLET PO PRN (13:41)
[2016-06-25] MEDS: Metoprolol XL (24 HR) Succ 25 MG TAB.ER.24H PO SCH (13:41)
--- NOTE | 2016-06-25 17:15 | ECHO - Doppler Report ---
Echocardiogram Name: Heri Abrams Date of Study: 06/25/2016 Date: 1955 Ht: 71.0 in Medical Record#: [id number] Age: 60 Wt: 129.0 lb Gender: Male BSA: 1.75 Order #: [id number] Location: [facility] Room #: IC8 Reading Physician: Ernst Shankar MD, [facility] Portable Canteen Operator: Odalis Prado Ordering Physician: Marcelo Alvarado MD Primary Physician: Roberto Hensley CNP Indications: Check LV function Impressions: Severe LV systolic dysfunction, LVEF 25%. There is severe hypokinesis to akinesis of all mid-apical myocardial segments. Basal segments demonstrate low-normal contractility. Consider Takotsubo (stress-induced) cardiomyopathy vs ischemic cardiomyopathy. Normal right ventricular size and function. Mild tricuspid regurgitation. No evidence of pulmonary hypertension. There is a small pericardial effusion present. There is no echocardiographic evidence of tamponade. Left Ventricular Wall Motion: Rest Echo Findings The apex, apical inferior, mid inferior, apical anterior, mid anterior, apical septal, mid inferior septal, apical lateral, mid anterior lateral, mid anterior septal and mid inferior lateral orta were hypokinetic. All other wall segments showed normal motion. Findings: Study Quality * Suboptimal echo windows. ECG Findings * Sinus rhythm with PVCs. Left Ventricle * Severe LV systolic dysfunction, LVEF 25%. There is severe hypokinesis to akinesis of all mid-apical myocardial segments. Basal segments demonstrate low-normal contractility. * Consider Takotsubo (stress-induced) cardiomyopathy vs ischemic cardiomyopathy. * Normal LV chamber size and wall thickness. * Indeterminate diastolic function. Right Ventricle * Normal right ventricular size and function. Left Atrium * Normal left atrial size. Right Atrium * Normal right atrial size. Aorta * Normally sized aortic root. Pericardium * There is a small pericardial effusion present. * There is no echocardiographic evidence of tamponade. IVC * The IVC is not dilated. Aortic Valve * Aortic valve not well visualized. * No aortic stenosis. * No aortic regurgitation. Mitral Valve * Mildly thickened mitral valve leaflets. * No mitral stenosis. * Trace mitral regurgitation. Tricuspid Valve * Normal tricuspid valve structure. * No tricuspid stenosis. * Mild tricuspid regurgitation. * No evidence of pulmonary hypertension. Pulmonic Valve * Pulmonic valve not well visualized. * No pulmonic stenosis. * No pulmonic regurgitation. History History of Smoking Years 40 Packs 2 Family History of CAD Measurements: BP: 84/ 72 2D Normal Values IVSd: .80 cm 0.6 - 1.0 cm LVIDd: 4.90 cm 3.7 - 5.6 cm LVPWd: .80 cm 0.6 - 1.1 cm LVIDs: 3.60 cm 1.5 - 3.6 cm AO: 2.80 cm < 4.0 cm LA volume: 31 Tricuspid Valve TV Regurg Peak Grad: 29.00mmHg TV Regurg Peak Roger: 2.71m/sec Updated by Ernst Shankar MD, [facility] on 06/25/2016 5:08:22 PM electronically signed on 06/25/2016 5:09:15 PM with status of Final Wall Motion [place]: 1=Normal, 2=Hypokinesis, 3=Akinesis, 4=Dyskinesis, 5=Aneurysmal, 6=Hyperkinetic, X=Not Visualized (Blank)=Missing
[2016-06-25] MEDS: Levofloxacin 750 MG/150 ML 750 MG/150 ML BAG IVPB SCH (17:16)
[2016-06-25] MEDS: methylPREDNISolone 125 MG/2 ML VIAL IVP SCH (17:18)
--- NOTE | 2016-06-25 18:10 | Electrocardiograph Report ---
[address] [place], [place] [address] Test Date: 2016-06-25 Pat Name: Heri Abrams Department: 105 Room: [facility] Gender: M Shoe Lay Out Planner: INDIO : 1955 Requested By: Mckinley Cooper Order Number: [id number] Reading MD: Flash Holland MD Measurements Intervals [place] Rate: 97 P: 84 WI: 120 QRS: 263 QRSD: 109 T: 226 QT: 356 QTc: 411 Interpretive Statements SINUS RHYTHM WITH FREQUENT VENTRICULAR PREMATURE COMPLEXES MARKED RIGHT AXIS DEVIATION ANTEROLATERAL ISCHEMIA Electronically Signed On 06-25-2016 18:08:47 EDT by Flash Holland MD
--- NOTE | 2016-06-25 18:20 | Electrocardiograph Report ---
[address] [place], [place] [address] Test Date: 2016-06-25 Pat Name: Heri Abrams Department: 109 Room: [facility] Gender: M Stem Frazer: : 1955 Requested By: Yaw Rodgers Order Number: [id number] Reading MD: Flash Holland MD Measurements Intervals [place] Rate: 119 P: 82 MD: 120 QRS: 261 QRSD: 109 T: 194 QT: 333 QTc: 403 Interpretive Statements SINUS TACHYCARDIA WITH FREQUENT VENTRICULAR PREMATURE COMPLEXES MARKED RIGHT AXIS DEVIATION ANTEROLATERAL ISCHEMIA Poor R wave progression RIGHT ATRIAL ABNORMALITY Electronically Signed On 06-25-2016 18:18:53 EDT by Flash Holland MD
[2016-06-25] MEDS: Vancomycin 1,000 MG in D5% in Water 250 ML IVPB SCH (22:00)
[2016-06-26 00:34] LABS: Activated Partial Thrombo Time 145.1 Seconds (26.0-36.0)
[2016-06-26 00:45] LABS: Heparin anti-factor XA UFH 0.61 IU/mL (0.30-0.70)
[2016-06-26] MEDS: Dexmedetomidine HCl 400 MCG/100 ML MLS IVC SCH ×2 (00:47→14:40)
[2016-06-26] MEDS: methylPREDNISolone 125 MG/2 ML VIAL IVP SCH ×4 (00:47→23:25)
[2016-06-26 02:49] LABS: Hematocrit 46.9 % (37.5-50.1); Hemoglobin 15.6 g/dL (12.9-16.9); Immature Granulocytes % 0.3 % (0-4); Immature Platelets 5.4 % (1.1-6.1); Lymphocytes # 0.3 K/mcL (0.6-4.6); Lymphocytes % 8.2 %; Mean Corpuscular HGB Conc 33.3 g/dL (31.6-35.5); Mean Corpuscular Hemoglobin 32.3 pg (28.0-33.3); Mean Corpuscular Volume 97.1 fL (83.0-100.0); Mean Platelet Volume 9.7 fL (9.4-12.4); Monocytes # 0.3 K/mcL (0.0-1.3); Monocytes % 8.2 %; Platelet Count 133 K/mcL (140-400); Red Blood Count 4.83 M/mcL (4.19-5.50); Red Cell Distribution Width 12.3 % (11.5-14.5); Segmented Neutrophils % 83.3 %
[2016-06-26 02:52] LABS: Neutrophils # 2.9 K/mcL (1.6-8.9)
[2016-06-26 03:02] LABS: BUN/Creatinine Ratio 30 (6-26); Blood Urea Nitrogen 23 mg/dL (8-26); Carbon Dioxide 37 mEq/L (19-29); Chloride 88 mEq/L (98-109); Glucose 146 mg/dL (70-99); Magnesium 1.9 mg/dL (1.6-2.6); Osmolality,Calculated 288 (280-300); Potassium 3.6 mEq/L (3.5-4.5); Sodium 136 mEq/L (136-145); eGFR For African Americans > 60 (> 60); eGFR For Non-African Americans > 60 (> 60)
[2016-06-26 03:04] LABS: Platelet Estimate Decreased (Normal)
[2016-06-26 03:05] LABS: Reactive Lymphocytes Present (Not Present)
[2016-06-26] MEDS: Ipratropium/Albuterol Neb 3 ML IH SCH ×6 (04:04→23:35)
[2016-06-26] MEDS: *HR* OxyCODONE Immed Rel 5 MG TABLET PO PRN ×2 (04:45→23:24)
[2016-06-26] MEDS: Vancomycin 1,000 MG in D5% in Water 250 ML IVPB SCH (05:56)
[2016-06-26] MEDS: Budesonide/Formoterol 80/4.5 MDI IH SCH ×2 (07:47→20:09)
--- NOTE | 2016-06-26 08:14 | Pulmonology Progress Note ---
<Darlene Rahmanjose M - Last Filed: 06/26/16 09:55> Date of Encounter: 06/26/16 Time of Encounter: 07:20 Objective PUL Vital signs: Last Vital Signs Temp 97.5 F L 06/26/16 05:04 Pulse 72 06/26/16 09:23 Resp 20 06/26/16 09:23 BP 122/86 06/26/16 09:23 Pulse Ox 94 06/26/16 09:23 Results - Laboratory Findings CBC and BMP: 06/26/16 02:41 06/26/16 02:41 ABG ABG pH 7.44 pH Units (7.32-7.45) 06/25/16 09:00 ABG pCO2 60 mmHg (35-45) H 06/25/16 09:00 ABG pO2 128 mmHg (85-104) H 06/25/16 09:00 ABG O2 Saturation 99 % (95-98) H 06/25/16 09:00 PT/INR, D-dimer PT 11.9 Seconds (9.4-12.1) 06/25/16 08:56 Abnormal lab findings: Abnormal lab results WBC 3.5 K/mcL (4.3-11.1) L 06/26/16 02:41 Plt Count 133 K/mcL (140-400) L 06/26/16 02:41 Lymphocytes # 0.3 K/mcL (0.6-4.6) L 06/26/16 02:41 Reactive Lymphocytes Present (Not Present) A 06/26/16 02:41 Platelet Estimate Decreased (Normal) L 06/26/16 02:41 APTT 54.1 Seconds (26.0-36.0) H 06/26/16 06:09 ABG pCO2 60 mmHg (35-45) H 06/25/16 09:00 ABG pO2 128 mmHg (85-104) H 06/25/16 09:00 ABG HCO3 40.8 mEQ/L (21-27) H 06/25/16 09:00 ABG Total CO2 42.6 mEq/L (20-26) H 06/25/16 09:00 ABG O2 Saturation 99 % (95-98) H 06/25/16 09:00 ABG Base Excess 13.3 mEq/L (-2.0 to 3.0) H 06/25/16 09:00 Chloride 88 mEq/L (98-109) L 06/26/16 02:41 Carbon Dioxide 37 mEq/L (19-29) H 06/26/16 02:41 BUN/Creatinine Ratio 30 (6-26) H 06/26/16 02:41 Glucose 146 mg/dL (70-99) H 06/26/16 02:41 POC Glucose 126 (58-89) H 06/25/16 11:49 Lactic Acid 2.5 mmol/L (0.5-2.2) H 06/26/16 02:41 Troponin I 0.04 ng/mL (0-0.03) H* 06/26/16 02:41 B-Natriuretic Peptide 1039 pg/mL (0-100) H 06/26/16 02:41 Albumin 3.1 g/dL (3.5-5.0) L 06/25/16 02:03 Globulin 3.6 g/dL (2.4-3.5) H 06/25/16 02:03 Albumin/Globulin Ratio 0.9 (1.1-2.2) L 06/25/16 02:03 - Microbiology Findings Microbiology Findings: Microbiology, Last 48 Hours 06/25/16 22:00 Sputum Culture - Preliminary Sputum 06/25/16 19:05 Legionella Antigen - Final Urine,Clean Catch Streptococcus pneumoniae Antigen (M - Final 06/25/16 11:00 Influenza Types A,B Antigen (CIELO) - Final Nasopharyngeal - Clinical Findings Intake & Output: Intake & Output 06/25/16 06/26/16 06/26/16 23:59 07:59 15:59 Intake Total 635 / 635 728 / 728 227 / 227 Output Total 685 / 685 0 / 0 Balance -50 / -50 728 / 728 227 / 227 Weight 57.153 kg Consult Discharge Plan - Plan Referrals: Roberto Hensley [employer] [Primary Care Provider] - - Attending Attestation I examined this patient and my medical decision-making was reviewed with the MORTAR CARRIER/PA/Advanced Practice Nurse/Resident Physician. I agree with the documented findings, disposition and treatment plan as described except to the extent set forth below. Patient seen and examined. Labs, radiology, chart personally reviewed. Agree with resident's history and physical, assessment, plan with following comments: TIN CUTTER: Patient follows commands, Pulmonary: Acceptable oxygenation and ventilation. Transition to high flow oxygen use. Cardiovascular: Cardiology follow-up was the findings on his echocardiogram. GI: Nutrition per dietary and GI prophylaxis per routine Heme: DVT prophylaxis per routine ID: Continue antibiotics and plan to de-escalation Renal; urine out put and renal funtion reviewed Endorcine: blood glucose is monitored Lines: all lines checked and no evidence of infections Skin: skin care to prevent pressure ulcers per nursing routine care Overall patient remain at risk of his condition could deteriorate with his cardiopulmonary system dysfunction. <Yaw Rodgers - Last Filed: 06/26/16 12:36> Date of Encounter: 06/26/16 Assessment and Plan (1) Acute congestive heart failure with left ventricular diastolic dysfunction Current Visit: Yes Status: Acute 1. Hypercapnic respiratory failure In the setting of HCAP, COPD, and CHF. ABG CO2 on admission = 60. WBC 3.5. Likely secondary to chemotherapy, not sepsis. Lactate 1.7 > 2.5 - Continue BiPap; attempt wean to high flow - Continue Pressedex titrate to minimal dose for patient comfort; goal is no pressedex. - May begin PO anxiolytic pending full wean off pressedex and patient toleration of respiratory support. - Continue DuoNeb, Symbicort, Mucinex - Continue solumedrol 60mg IV Q8hr - Levaquin, day 2 - Ceftriaxone, day 2 - Vancomycin, day 2 Micro: Blood cultures (-) Sputum cultures (-) Urine legionella ag (-) Urine strep pneumoniae ag (-) 2. HCAP 25 Jun 2016: CXR: RML consolidation, RUL and RLL scattered opacities; consistent with multifocal pneumonia. - Plan as above. 3. Sepsis SIRS (+) on intake: HR 136, RR 20 Sepsis from pulmonary source - HCAP. Will NOT fluid resuscitate given acute CHF. 4. Acute CHF with LV diastolic dysfunction No Cardiac Echo on record BNP 920 > 1039 Echo 06/25/16: LVEF 25%, severe hypokinesis Clinically not fluid overloaded; suspect fluid shift secondary to sepsis. Unlikely to improve with diuresis plus risk pushing into hypotension. - Maintain Lasix from 40mg IVP Qdaily - Cardiology is following and their input appreciated. 5. NSTEMI No chest pain at this time. EKG in ER interpreted as - lateral T-wave inversions. Troponin peak 0.12. Now 0.04. Demand ischemia vs NSTEMI. Likely NSTEMI given EKG changes. Repeat EKG in ICU at 13:58 06/25/16: Tracing somewhat obscured by PVCs. Sinus tachycardia with rate of 119, Frequent PVCs, Right axis, 5-8mm T-wave inversion in inferior and lateral leads, 1/2mm ST depression in inferior and lateral leads. Compared to previous EKG dated 01/06/16: Q-waves present in Va and V2. PVCs and STT changes are new. - Discontinue Heparin. - Continue ASA. - Cardiology is following and their input appreciated. 6. Renal cell carcinoma of right kidney Diagnosed November 2015. Currently on PO chemotherapy. Oncologist: Imani Molina DVT Prophylaxis: On heparin drip as above. PUD prophylaxis: IV Protonix Diet: Advance to cardiac/renal diet. 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 Mr. Abrams continues to dislike BiPap despite maximal dose pressedex. He continues to symptomatically improve. Will attempt wean to high flow today. He has no complaints of discomfort at this time. He has no questions or concerns at this time. Currently, no family at bedside this morning. Objective PUL Vital signs: Last Vital Signs Temp 97.5 F L 06/26/16 05:04 Pulse 62 06/26/16 05:52 Resp 15 06/26/16 05:52 BP 92/2 06/26/16 05:52 Pulse Ox 95 06/26/16 05:52 General appearance: no acute distress, alert Eyes: nonicteric ENT: oropharynx dry Neck: supple Effort: normal Auscultation: bilateral: clear, diminished breath sounds Cardiovascular: regular rate and rhythm Gastrointestinal: normoactive bowel sounds, soft, non-tender, non-distended Integumentary: normal Extremities: no cyanosis, no edema, no clubbing, pink and warm, pulses normal Musculoskeletal: no deformities normal mental status, pupils equal and round mood appropriate, affect normal Results - Laboratory Findings CBC and BMP: 06/26/16 02:41 06/26/16 02:41 ABG ABG pH 7.44 pH Units (7.32-7.45) 06/25/16 09:00 ABG pCO2 60 mmHg (35-45) H 06/25/16 09:00 ABG pO2 128 mmHg (85-104) H 06/25/16 09:00 ABG O2 Saturation 99 % (95-98) H 06/25/16 09:00 PT/INR, D-dimer PT 11.9 Seconds (9.4-12.1) 06/25/16 08:56 Abnormal lab findings: Abnormal lab results WBC 3.5 K/mcL (4.3-11.1) L 06/26/16 02:41 Plt Count 133 K/mcL (140-400) L 06/26/16 02:41 Lymphocytes # 0.3 K/mcL (0.6-4.6) L 06/26/16 02:41 Reactive Lymphocytes Present (Not Present) A 06/26/16 02:41 Platelet Estimate Decreased (Normal) L 06/26/16 02:41 APTT 54.1 Seconds (26.0-36.0) H 06/26/16 06:09 ABG pCO2 60 mmHg (35-45) H 06/25/16 09:00 ABG pO2 128 mmHg (85-104) H 06/25/16 09:00 ABG HCO3 40.8 mEQ/L (21-27) H 06/25/16 09:00 ABG Total CO2 42.6 mEq/L (20-26) H 06/25/16 09:00 ABG O2 Saturation 99 % (95-98) H 06/25/16 09:00 ABG Base Excess 13.3 mEq/L (-2.0 to 3.0) H 06/25/16 09:00 Chloride 88 mEq/L (98-109) L 06/26/16 02:41 Carbon Dioxide 37 mEq/L (19-29) H 06/26/16 02:41 BUN/Creatinine Ratio 30 (6-26) H 06/26/16 02:41 Glucose 146 mg/dL (70-99) H 06/26/16 02:41 POC Glucose 126 (58-89) H 06/25/16 11:49 Lactic Acid 2.5 mmol/L (0.5-2.2) H 06/26/16 02:41 Troponin I 0.04 ng/mL (0-0.03) H* 06/26/16 02:41 B-Natriuretic Peptide 1039 pg/mL (0-100) H 06/26/16 02:41 Albumin 3.1 g/dL (3.5-5.0) L 06/25/16 02:03 Globulin 3.6 g/dL (2.4-3.5) H 06/25/16 02:03 Albumin/Globulin Ratio 0.9 (1.1-2.2) L 06/25/16 02:03 - Microbiology Findings Microbiology Findings: Microbiology, Last 48 Hours 06/25/16 22:00 Sputum Culture - Preliminary Sputum 06/25/16 19:05 Legionella Antigen - Final Urine,Clean Catch Streptococcus pneumoniae Antigen (M - Final 06/25/16 11:00 Influenza Types A,B Antigen (CIELO) - Final Nasopharyngeal - Clinical Findings Intake & Output: Intake & Output 06/25/16 06/26/16 06/26/16 23:59 07:59 15:59 Intake Total 535 / 535 478 / 478 Output Total 685 / 685 Balance -150 / -150 478 / 478 Weight 57.153 kg
[2016-06-26] MEDS: Metoprolol XL (24 HR) Succ 25 MG TAB.ER.24H PO SCH ×2 (08:24→14:42)
[2016-06-26] MEDS: Pantoprazole 40 MG VIAL IVP SCH (08:32)
[2016-06-26] MEDS: Aspirin Enteric Coated 81 MG Tablet PO SCH (08:37)
[2016-06-26] MEDS: Levofloxacin 750 MG/150 ML 750 MG/150 ML BAG IVPB SCH (08:37)
[2016-06-26] MEDS: Furosemide 40 MG/4 ML VIAL IVP SCH (08:38)
[2016-06-26] MEDS: Nicotine 7 MG PATCH.TD24 TD SCH (08:39)
[2016-06-26] MEDS: Nystatin SUSP 5 ML UD.LIQ PO SCH ×4 (09:27→20:04)
--- NOTE | 2016-06-26 12:40 | Procedure Note ---
<Yaw Rodgers - Last Filed: 06/26/16 12:37> Date of procedure: 06/26/16 Pre-op diagnosis: hypotension, poor IV access Post-op diagnosis: same Procedure: Location: Right IJ A time-out was completed verifying correct patient, procedure, site, positioning , and equipment. The patient was placed supine with head rotated left. Ultrasound was used to microfiche camera operator the area looking for anatomic abnormalities - none were found. The patients left neck and clavicle were prepped and draped in sterile fashion. 1% Lidocaine was used to anesthetize the surrounding skin area. Each lumen of the catheter was evacuated of air and flushed with sterile saline. Under ultrasound guidance, access was obtained in the right IJ. The guide wire was advanced, position confirmed with ultrasound. A triple lumen catheter was introduced into the the right internal jugular vein using the Seldinger technique. The catheter was threaded smoothly over the guide wire and appropriate blood return was obtained. The catheter was then sutured in place to the skin and a sterile dressing applied. Perfusion to the extremity distal to the point of catheter insertion was checked and found to be adequate. Dr. Rahman was present for the entire procedure. Placement was confirmed via portable CXR. Estimated Blood Loss: 3mL The patient tolerated the procedure well and there were no complications. Surgeon: Yaw Rodgers Estimated blood loss (cc): 3 IV fluids (cc): 0 Urine output (cc): 0 Pathology: none sent Condition: stable Disposition: ICU <Sharon Rahman - Last Filed: 06/26/16 14:26> Procedure: I have personally supervised the resident placing a right IJ central line. No immediate complications.
--- NOTE | 2016-06-26 13:14 | Cardiology Progress Note ---
Date of Encounter: 06/26/16 Time of Encounter: 13:12 Assessment and Plan (1) Elevated troponin Current Visit: Yes Status: Acute Mild troponin elevation in the setting of acute hypoxic and hypercapnic respiratory distress/ pneumonia. Denies chest pain. Labored respirations on my exam. Denies previous history of CAD. TTE reviewed with patient and family. Severe LV systolic dysfuction. Severe hypokenesis, akenesis of all mid-apical segments. Basal segment low normal contractility. Mild TR. Normal Size RV and normal RV function. Consider stress induced cardiomyoapathy. CTA negative for PE. Asa, statin, and BB. (2) Abnormal EKG Current Visit: Yes Status: Acute Inferior and anterior/lateral T wave changes on EKG. May be secondary to demand ischemia from acute repiratory failure. Serial EKG. EKG ordered. (3) Acute systolic (congestive) heart failure Current Visit: Yes Status: Acute Acute systolic heart failure. TTE reviewed with patient and family. Severe LV systolic dysfuction. EF 25%. Severe hypokenesis, akenesis of all mid-apical segments. Basal segment low normal contractility. Mild TR. Normal Size RV and normal RV function. Consider stress induced cardiomyopathy in patient on chemotherapy and with pneumonia. Cannot r/o ischemic cause. Not a candidate for ischemic eval at this time d/t respiratory status. Recommend re-checking limited echocardiogram once improved from pneumonia/ respiratory standpoint. No significant fluid overload seen on exam today. Reported weight loss. CTA did not demonstrate CHF, there was consolidation in the right middle lobe, findings suspicious for pneumonia. BNP was elevated. On IV lasix 40 mg. Negative 1320 ml for stay. Kidney function remains normal. Continue to monitor. CHF education reviewed with patient and family. Continue piter-inhibitor and bb. Discussion w patient/family: The assessment and plan as outlined above was discussed with the patient and/or family members who expressed understanding and agreement. All questions were answered. Thank you for involving us in the care of your patient. Please call with any questions. Subjective Principal diagnosis: hypercapnic respiratory failure Interval history: Pt breathing better today. Denies chest pain. States he did have tightness in his chest when he could not catch his breath yesterday. Objective Vital Signs, Last 4 Hours Pulse Resp BP Pulse Ox 06/26/16 12:05 96 24 116/78 93 06/26/16 11:15 67 20 108/76 94 06/26/16 10:49 86 16 100/79 92 06/26/16 09:23 72 20 122/86 94 General: Conversant, No Apparent Distress HEENT: Atraumatic, Normocephaly, Mucus Membranes Moist Cardiac: Reg Rate and Rhythm, Normal S1 and S2, No Murmur, Other (SR with frequmt PVC) Lungs: Other (Diminished through-out.) Neuro: Alert and responsive, No focal deficits noted Abdomen: Soft, Non-Tender Skin: No rashes noted on visualized skin Musculoskeletal: No Chest Wall Tenderness Extremities: No Clubbing, No Cyanosis, No Edema, Normal Pulses Results 06/26/16 02:41 06/26/16 02:41 Lab Results 06/25/16 06/25/16 06/25/16 14:26 17:47 23:39 WBC Hgb Hct Plt Count APTT 66.4 H D 145.1 H* D Sodium Potassium Chloride Carbon Dioxide BUN Creatinine Glucose Calcium Magnesium Troponin I 0.09 H* B-Natriuretic Peptide 06/26/16 06/26/16 06/26/16 02:41 02:41 02:41 WBC 3.5 L Hgb 15.6 Hct 46.9 Plt Count 133 L APTT Sodium 136 Potassium 3.6 Chloride 88 L Carbon Dioxide 37 H BUN 23 Creatinine 0.77 Glucose 146 H Calcium 9.0 Magnesium 1.9 Troponin I 0.04 H* B-Natriuretic Peptide 06/26/16 06/26/16 06/26/16 02:41 02:41 06:09 WBC Hgb Hct Plt Count APTT 45.6 H D 54.1 H Sodium Potassium Chloride Carbon Dioxide BUN Creatinine Glucose Calcium Magnesium Troponin I B-Natriuretic Peptide 1039 H - Imaging and Cardiology Echo: report reviewed - EKG Interpretation EKG results cardiology: personally reviewed Consult Discharge Plan - Plan Referrals: Roberto Hensley CNP [Primary Care Provider] -
[2016-06-26] MEDS: *HR* Heparin 5,000 UNIT/ML VIAL SQ SCH (17:52)
[2016-06-26] MEDS: Vancomycin 1,250 MG in D5% in Water 250 ML IVPB SCH (17:52)
[2016-06-26] MEDS ORDERED: Acetaminophen 325 MG TABLET PO PRN (18:02)
[2016-06-26] MEDS: *HR* LORazepam 1 MG TABLET PO PRN (23:24)
[2016-06-27] MEDS: Ipratropium/Albuterol Neb 3 ML IH SCH ×6 (03:13→20:08)
[2016-06-27 03:43] LABS: Hematocrit 45.9 % (37.5-50.1); Hemoglobin 15.5 g/dL (12.9-16.9); Immature Granulocytes % 0.2 % (0-4); Lymphocytes # 0.3 K/mcL (0.6-4.6); Lymphocytes % 5.1 %; Mean Corpuscular HGB Conc 33.8 g/dL (31.6-35.5); Mean Corpuscular Hemoglobin 31.8 pg (28.0-33.3); Mean Corpuscular Volume 94.1 fL (83.0-100.0); Mean Platelet Volume 9.5 fL (9.4-12.4); Monocytes # 0.4 K/mcL (0.0-1.3); Monocytes % 7.3 %; Neutrophils # 5.2 K/mcL (1.6-8.9); Platelet Count 162 K/mcL (140-400); Red Blood Count 4.88 M/mcL (4.19-5.50); Red Cell Distribution Width 12.4 % (11.5-14.5); Segmented Neutrophils % 87.4 %
[2016-06-27 03:56] LABS: BUN/Creatinine Ratio 29 (6-26); Blood Urea Nitrogen 22 mg/dL (8-26); Calcium 9.1 mg/dL (8.6-10.8); Carbon Dioxide 32 mEq/L (19-29); Chloride 87 mEq/L (98-109); Glucose 137 mg/dL (70-99); Osmolality,Calculated 285 (280-300); Potassium 3.5 mEq/L (3.5-4.5); Sodium 135 mEq/L (136-145); eGFR For African Americans > 60 (> 60); eGFR For Non-African Americans > 60 (> 60)
[2016-06-27] MEDS: *HR* Heparin 5,000 UNIT/ML VIAL SQ SCH ×2 (05:00→17:09)
[2016-06-27] MEDS: Vancomycin 1,250 MG in D5% in Water 250 ML IVPB SCH ×2 (05:00→17:09)
[2016-06-27] MEDS: Budesonide/Formoterol 80/4.5 MDI IH SCH ×2 (07:52→20:08)
[2016-06-27] MEDS: Aspirin Enteric Coated 81 MG Tablet PO SCH (08:06)
[2016-06-27] MEDS: Nystatin SUSP 5 ML UD.LIQ PO SCH ×2 (08:07→13:50)
[2016-06-27] MEDS: Metoprolol XL (24 HR) Succ 25 MG TAB.ER.24H PO SCH (08:07)
[2016-06-27] MEDS: Furosemide 40 MG/4 ML VIAL IVP SCH (08:08)
[2016-06-27] MEDS: Pantoprazole 40 MG VIAL IVP SCH (08:08)
[2016-06-27] MEDS: methylPREDNISolone 125 MG/2 ML VIAL IVP SCH ×3 (08:08→23:58)
[2016-06-27] MEDS: Levofloxacin 750 MG/150 ML 750 MG/150 ML BAG IVPB SCH (08:09)
[2016-06-27] MEDS: Nicotine 7 MG PATCH.TD24 TD SCH (08:09)
[2016-06-27] MEDS: *HR* LORazepam 1 MG TABLET PO PRN (10:01)
--- NOTE | 2016-06-27 10:52 | Pulmonology Progress Note ---
<Sharon Rahman M - Last Filed: 06/27/16 12:18> Date of Encounter: 06/27/16 Objective PUL Vital signs: Last Vital Signs Temp 97.7 F 06/27/16 11:24 Pulse 99 06/27/16 11:00 Resp 24 06/27/16 11:15 BP 106/80 06/27/16 11:00 Pulse Ox 94 06/27/16 11:15 Results - Laboratory Findings CBC and BMP: 06/27/16 03:32 06/27/16 03:32 ABG ABG pH 7.44 pH Units (7.32-7.45) 06/25/16 09:00 ABG pCO2 60 mmHg (35-45) H 06/25/16 09:00 ABG pO2 128 mmHg (85-104) H 06/25/16 09:00 ABG O2 Saturation 99 % (95-98) H 06/25/16 09:00 PT/INR, D-dimer PT 11.9 Seconds (9.4-12.1) 06/25/16 08:56 Abnormal lab findings: Abnormal lab results Lymphocytes # 0.3 K/mcL (0.6-4.6) L 06/27/16 03:32 Reactive Lymphocytes Present (Not Present) A 06/26/16 02:41 Platelet Estimate Decreased (Normal) L 06/26/16 02:41 APTT 54.1 Seconds (26.0-36.0) H 06/26/16 06:09 ABG pCO2 60 mmHg (35-45) H 06/25/16 09:00 ABG pO2 128 mmHg (85-104) H 06/25/16 09:00 ABG HCO3 40.8 mEQ/L (21-27) H 06/25/16 09:00 ABG Total CO2 42.6 mEq/L (20-26) H 06/25/16 09:00 ABG O2 Saturation 99 % (95-98) H 06/25/16 09:00 ABG Base Excess 13.3 mEq/L (-2.0 to 3.0) H 06/25/16 09:00 Sodium 135 mEq/L (136-145) L 06/27/16 03:32 Chloride 87 mEq/L (98-109) L 06/27/16 03:32 Carbon Dioxide 32 mEq/L (19-29) H 06/27/16 03:32 BUN/Creatinine Ratio 29 (6-26) H 06/27/16 03:32 Glucose 137 mg/dL (70-99) H 06/27/16 03:32 POC Glucose 126 (58-89) H 06/25/16 11:49 Troponin I 0.04 ng/mL (0-0.03) H* 06/26/16 02:41 B-Natriuretic Peptide 1039 pg/mL (0-100) H 06/26/16 02:41 Albumin 3.1 g/dL (3.5-5.0) L 06/25/16 02:03 Globulin 3.6 g/dL (2.4-3.5) H 06/25/16 02:03 Albumin/Globulin Ratio 0.9 (1.1-2.2) L 06/25/16 02:03 Mycoplasma pneumon IgG 0.92 U/L (<=0.09) H 06/25/16 08:56 - Microbiology Findings Microbiology Findings: Microbiology, Last 48 Hours 06/25/16 22:00 Sputum Culture - Preliminary Sputum 06/25/16 19:05 Legionella Antigen - Final Urine,Clean Catch Streptococcus pneumoniae Antigen (M - Final 06/25/16 11:00 Influenza Types A,B Antigen (CIELO) - Final Nasopharyngeal - Clinical Findings Intake & Output: Intake & Output 06/26/16 06/27/16 06/27/16 23:59 07:59 15:59 Intake Total 450 / 450 250 / 250 610 / 610 Output Total 380 / 380 400 / 400 650 / 650 Balance 70 / 70 -150 / -150 -40 / -40 Weight 58.06 kg Consult Discharge Plan - Plan Referrals: Roberto Hensley MARKETING CONTENT SPECIALIST [Primary Care Provider] - - Attending Attestation I examined this patient and my medical decision-making was reviewed with the BACK SIZER/PA/Advanced Practice Nurse/Resident Physician. I agree with the documented findings, disposition and treatment plan as described except to the extent set forth below. Patient seen and examined. Labs, radiology, chart personally reviewed. Agree with resident's history and physical, assessment, plan with following comments: MACARONI PRESS OPERATOR: Patient follows commands, Pulmonary: Acceptable oxygenation and ventilation and patient feels better. Cardiovascular: stable GI: Nutrition per dietary and GI prophylaxis per routine Heme: DVT prophylaxis per routine ID: Continue antibiotics and plan to de-escalation Renal; urine out put and renal funtion reviewed Endorcine: blood glucose is monitored Lines: all lines checked and no evidence of infections Skin: skin care to prevent pressure ulcers per nursing routine care Overall patient is improving and he will be transferred to [facility]. please call for any questions. <Yaw Rodgers - Last Filed: 06/27/16 15:15> Date of Encounter: 06/27/16 Time of Encounter: 08:15 Assessment and Plan (1) Acute congestive heart failure with left ventricular diastolic dysfunction Current Visit: Yes Status: Acute 1. Hypercapnic respiratory failure In the setting of HCAP, COPD, and CHF. ABG CO2 on admission = 60. WBC 3.5. Likely secondary to chemotherapy, not sepsis. Lactate 1.7 > 2.5 - Continue supplemental O2 PRN - Continue DuoNeb, Symbicort, Mucinex - Continue solumedrol 60mg IV Q8hr - Levaquin, day 3 - Ceftriaxone, day 3 - Vancomycin, day 3 Micro: Blood cultures (-) Sputum cultures (-) Urine legionella ag (-) Urine strep pneumoniae ag (-) - Transfer to medical floor on tele. Signed out to Dr. Alvarado. 2. HCAP 25 Jun 2016: CXR: RML consolidation, RUL and RLL scattered opacities; consistent with multifocal pneumonia. - Plan as above. 3. Sepsis SIRS (+) on intake: HR 136, RR 20 Sepsis from pulmonary source - HCAP. Will NOT fluid resuscitate given acute CHF. SIRS (-) 06/27/16 4. Acute CHF with LV diastolic dysfunction No Cardiac Echo on record BNP 920 > 1039 Echo 06/25/16: LVEF 25%, severe hypokinesis Clinically not fluid overloaded; suspect fluid shift secondary to sepsis. Unlikely to improve with diuresis plus risk pushing into hypotension. - Maintain Lasix from 40mg IVP Qdaily - Cardiology is following and their input appreciated. 5. NSTEMI No chest pain at this time. EKG in ER interpreted as - lateral T-wave inversions. Troponin peak 0.12 36hrs ago. Demand ischemia vs NSTEMI. Likely NSTEMI given EKG changes. Repeat EKG in ICU at 13:58 06/25/16: Tracing somewhat obscured by PVCs. Sinus tachycardia with rate of 119, Frequent PVCs, Right axis, 5-8mm T-wave inversion in inferior and lateral leads, 1/2mm ST depression in inferior and lateral leads. Compared to previous EKG dated 01/06/16: Q-waves present in Va and V2. PVCs and STT changes are new. - Discontinue Heparin. - Continue ASA. - Cardiology is following and their input appreciated. 6. Renal cell carcinoma of right kidney Diagnosed November 2015. Currently on PO chemotherapy. Oncologist: Imani Molina DVT Prophylaxis: On heparin drip as above. PUD prophylaxis: IV Protonix Diet: Advance to cardiac/renal diet. 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 Mr. Abrams is sitting at bedside on NC, comfortable , no respiratory distress. He has no complaints or questions at this time. Objective PUL Vital signs: Last Vital Signs Temp 97.8 F 06/27/16 07:40 Pulse 115 06/27/16 10:00 Resp 22 06/27/16 10:00 BP 115/84 06/27/16 10:00 Pulse Ox 93 06/27/16 10:00 General appearance: no acute distress, alert Eyes: nonicteric ENT: oropharynx moist Mallampati (class): 1 Neck: supple Effort: normal Auscultation: bilateral: wheezes Cardiovascular: regular rate and rhythm Gastrointestinal: normoactive bowel sounds, soft, non-tender, non-distended Integumentary: normal Extremities: no cyanosis, no edema, pink and warm, pulses normal Musculoskeletal: no deformities normal mental status mood appropriate, affect normal Results - Laboratory Findings CBC and BMP: 06/27/16 03:32 06/27/16 03:32 ABG ABG pH 7.44 pH Units (7.32-7.45) 06/25/16 09:00 ABG pCO2 60 mmHg (35-45) H 06/25/16 09:00 ABG pO2 128 mmHg (85-104) H 06/25/16 09:00 ABG O2 Saturation 99 % (95-98) H 06/25/16 09:00 PT/INR, D-dimer PT 11.9 Seconds (9.4-12.1) 06/25/16 08:56 Abnormal lab findings: Abnormal lab results Lymphocytes # 0.3 K/mcL (0.6-4.6) L 06/27/16 03:32 Reactive Lymphocytes Present (Not Present) A 06/26/16 02:41 Platelet Estimate Decreased (Normal) L 06/26/16 02:41 APTT 54.1 Seconds (26.0-36.0) H 06/26/16 06:09 ABG pCO2 60 mmHg (35-45) H 06/25/16 09:00 ABG pO2 128 mmHg (85-104) H 06/25/16 09:00 ABG HCO3 40.8 mEQ/L (21-27) H 06/25/16 09:00 ABG Total CO2 42.6 mEq/L (20-26) H 06/25/16 09:00 ABG O2 Saturation 99 % (95-98) H 06/25/16 09:00 ABG Base Excess 13.3 mEq/L (-2.0 to 3.0) H 06/25/16 09:00 Sodium 135 mEq/L (136-145) L 06/27/16 03:32 Chloride 87 mEq/L (98-109) L 06/27/16 03:32 Carbon Dioxide 32 mEq/L (19-29) H 06/27/16 03:32 BUN/Creatinine Ratio 29 (6-26) H 06/27/16 03:32 Glucose 137 mg/dL (70-99) H 06/27/16 03:32 POC Glucose 126 (58-89) H 06/25/16 11:49 Troponin I 0.04 ng/mL (0-0.03) H* 06/26/16 02:41 B-Natriuretic Peptide 1039 pg/mL (0-100) H 06/26/16 02:41 Albumin 3.1 g/dL (3.5-5.0) L 06/25/16 02:03 Globulin 3.6 g/dL (2.4-3.5) H 06/25/16 02:03 Albumin/Globulin Ratio 0.9 (1.1-2.2) L 06/25/16 02:03 - Microbiology Findings Microbiology Findings: Microbiology, Last 48 Hours 06/25/16 22:00 Sputum Culture - Preliminary Sputum 06/25/16 19:05 Legionella Antigen - Final Urine,Clean Catch Streptococcus pneumoniae Antigen (M - Final 06/25/16 11:00 Influenza Types A,B Antigen (CIELO) - Final Nasopharyngeal - Clinical Findings Intake & Output: Intake & Output 06/26/16 06/27/16 06/27/16 23:59 07:59 15:59 Intake Total 450 / 450 250 / 250 610 / 610 Output Total 380 / 380 400 / 400 650 / 650 Balance 70 / 70 -150 / -150 -40 / -40 Weight 58.06 kg
[2016-06-27 11:46] LABS: Mycoplasma pneumoniae IgG 0.92 U/L (<=0.09)
--- NOTE | 2016-06-27 11:48 | Cardiology Progress Note ---
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 Acute CHF with LV diastolic dysfunction - ?? Stress induced CMP Echo 06/25/16: LVEF 25%, severe hypokinesis Not severely volume overloaded - Maintain Lasix from 40mg IVP Qdaily 2. NSTEMI No chest pain at this time. EKG in ER interpreted as - lateral T-wave inversions. Troponin peak 0.12. Now 0.04. Demand ischemia vs NSTEMI. Likely NSTEMI given EKG changes. Still too SOB to consider invasive testing. No immediate testing planned. Favor medical therapy. (5) Elevated troponin Current Visit: Yes Status: Acute Mild troponin elevation in the setting of acute hypoxic and hypercapnic respiratory distress/ pneumonia. Denies chest pain. Labored respirations on my exam. Plan as above - no immediate plan for cath. Discussion w patient/family: The assessment and plan as outlined above was discussed with the patient and/or family members who expressed understanding and agreement. All questions were answered. Thank you for involving us in the care of your patient. Please call with any questions. Subjective Principal diagnosis: hypercapnic respiratory failure Interval history: Patient states he is feeling much better today compared to yesterday - still SOB while sitting up. Objective Vital Signs, Last 4 Hours Temp Pulse Resp BP Pulse Ox 06/27/16 11:24 97.7 F 06/27/16 11:15 24 94 06/27/16 11:00 99 20 106/80 94 06/27/16 10:00 115 22 115/84 93 06/27/16 09:00 118 16 101/72 91 06/27/16 08:00 106 16 114/99 94 General: Conversant, Other (Tachypneic) HEENT: Atraumatic, Normocephaly Neck: No JVD, Normal carotid pulses Cardiac: Reg Rate and Rhythm, No Murmur Lungs: No Wheeze, Rales, Rhonchi, Other (Marginal air movement) Neuro: Alert and responsive, No focal deficits noted Abdomen: Soft, Non-Tender Skin: No rashes noted on visualized skin Musculoskeletal: No Chest Wall Tenderness Extremities: No Clubbing, Normal Pulses Results 06/27/16 03:32 06/27/16 03:32 Lab Results 06/27/16 04 03:32 03:32 WBC 5.9 D Hgb 15.5 Hct 45.9 Plt Count 162 Sodium 135 L Potassium 3.5 Chloride 87 L Carbon Dioxide 32 H BUN 22 Creatinine 0.76 Glucose 137 H Calcium 9.1 - Imaging and Cardiology Echo: report reviewed Consult Discharge Plan - Plan Referrals: Roberto Hensley CNP [Primary Care Provider] -
[2016-06-27] MEDS: Dexmedetomidine HCl 400 MCG/100 ML MLS IVC SCH (12:59)
[2016-06-27] MEDS ORDERED: Ondansetron ODT 4 MG TAB.RAPDIS PO PRN ×2 (13:12→15:12)
[2016-06-27] MEDS ORDERED: PAZOPANIB HCL 800 MG PO SCH (13:15)
[2016-06-27] MEDS ORDERED: *HR* OxyCODONE Immed Rel 5 MG TABLET PO PRN (15:12)
[2016-06-27] MEDS ORDERED: Simethicone 80 MG TAB.CHEW PO PRN (15:12)
[2016-06-27] MEDS ORDERED: *HR* LORazepam 1 MG TABLET PO PRN (15:12)
[2016-06-27] MEDS ORDERED: Acetaminophen 325 MG TABLET PO PRN (15:12)
[2016-06-27 18:09] LABS: CK-BB (CK isoenzymes) 0 % (0-0); CK-MB (CK isoenzymes) 0 % (0-4); CK-MM (CK-isoenzymes) 100 % (96-100)
[2016-06-28] MEDS: Ipratropium/Albuterol Neb 3 ML IH SCH ×7 (00:25→23:46)
[2016-06-28] MEDS: Vancomycin 1,250 MG in D5% in Water 250 ML IVPB SCH (05:12)
[2016-06-28] MEDS: *HR* Heparin 5,000 UNIT/ML VIAL SQ SCH ×2 (05:15→15:51)
[2016-06-28 05:53] LABS: BUN/Creatinine Ratio 28 (6-26); Blood Urea Nitrogen 26 mg/dL (8-26); Carbon Dioxide 35 mEq/L (19-29); Chloride 90 mEq/L (98-109); Glucose 159 mg/dL (70-99); Osmolality,Calculated 292 (280-300); Potassium 3.7 mEq/L (3.5-4.5); Sodium 137 mEq/L (136-145); eGFR For African Americans > 60 (> 60); eGFR For Non-African Americans > 60 (> 60)
[2016-06-28 06:07] LABS: Hematocrit 47.5 % (37.5-50.1); Hemoglobin 16.1 g/dL (12.9-16.9); Immature Granulocytes % 0.2 % (0-4); Lymphocytes # 0.2 K/mcL (0.6-4.6); Lymphocytes % 3.7 %; Mean Corpuscular HGB Conc 33.9 g/dL (31.6-35.5); Mean Corpuscular Hemoglobin 32.8 pg (28.0-33.3); Mean Corpuscular Volume 96.7 fL (83.0-100.0); Mean Platelet Volume 9.8 fL (9.4-12.4); Monocytes # 0.4 K/mcL (0.0-1.3); Monocytes % 6.6 %; Neutrophils # 5.8 K/mcL (1.6-8.9); Platelet Count 174 K/mcL (140-400); Red Blood Count 4.91 M/mcL (4.19-5.50); Red Cell Distribution Width 12.7 % (11.5-14.5); Segmented Neutrophils % 89.5 %
[2016-06-28] MEDS: Budesonide/Formoterol 80/4.5 MDI IH SCH ×2 (07:51→19:44)
[2016-06-28] MEDS ORDERED: PAZOPANIB HCL 800 MG PO SCH (09:00)
[2016-06-28] MEDS ORDERED: Levofloxacin 750 MG/150 ML 750 MG/150 ML BAG IVPB SCH (09:00)
[2016-06-28] MEDS ORDERED: Furosemide 40 MG/4 ML VIAL IVP SCH (09:00)
[2016-06-28] MEDS: levoFLOXacin 750 MG TABLET PO SCH (09:10)
[2016-06-28] MEDS: methylPREDNISolone 125 MG/2 ML VIAL IVP SCH ×3 (09:11→23:58)
[2016-06-28] MEDS: Aspirin Enteric Coated 81 MG Tablet PO SCH (09:11)
[2016-06-28] MEDS: Metoprolol XL (24 HR) Succ 25 MG TAB.ER.24H PO SCH (09:11)
[2016-06-28] MEDS: Nicotine 7 MG PATCH.TD24 TD SCH (09:11)
[2016-06-28] MEDS ORDERED: Furosemide 40 MG/4 ML VIAL IVP ONE (10:16)
--- NOTE | 2016-06-28 10:20 | Cardiology Progress Note ---
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 Qualifiers: Dyspnea type: unspecified Qualified Code(s): R06.00 - Dyspnea, unspecified (3) Hospital acquired PNA Current Visit: Yes Status: Acute (4) Elevated troponin Current Visit: Yes Status: Acute Mild troponin elevation in the setting of acute hypoxic and hypercapnic respiratory distress/ pneumonia. Denies chest pain. Labored respirations on my exam. Plan as above - no immediate plan for cath. Discussed with patient today - he is not eager to consider invasive CV procedures in the near future. Med management for now. Extra Lasix today BP is borderline - if stable today and Renal function does not change -- low dose TRACE tomorrow. Discussion w patient/family: The assessment and plan as outlined above was discussed with the patient who expressed understanding and agreement. All questions were answered. Thank you for involving us in the care of your patient. Please call with any questions. Subjective Principal diagnosis: hypercapnic respiratory failure Interval history: Patient states he is feeling better - still SOB, no new complaints. Objective Vital Signs, Last 4 Hours Temp Pulse Resp BP Pulse Ox 06/28/16 07:51 18 92 06/28/16 07:27 98.1 F 96 17 108/78 98 General: Conversant, No Apparent Distress HEENT: Atraumatic, Normocephaly Neck: No JVD, Normal carotid pulses Cardiac: Reg Rate and Rhythm, Other (frequnet ectopy) Lungs: Other (Tachypneic, fair air movement ) Neuro: Alert and responsive, No focal deficits noted Abdomen: Soft, Non-Tender Skin: No rashes noted on visualized skin Musculoskeletal: No Chest Wall Tenderness Extremities: No Clubbing, No Edema Results 06/28/16 05:31 06/28/16 05:31 Lab Results 06/28/16 06/28/16 05:31 05:31 WBC 6.5 Hgb 16.1 Hct 47.5 Plt Count 174 Sodium 137 Potassium 3.7 Chloride 90 L Carbon Dioxide 35 H BUN 26 Creatinine 0.93 Glucose 159 H Calcium 9.0 - Imaging and Cardiology Echo: report reviewed Consult Discharge Plan - Plan Referrals: Roberto Hensley, BLAISE [Primary Care Provider] -
[2016-06-28] MEDS: Fluticasone Propionate Nasal 50 MCG/SPRAY BOTTLE NS SCH (11:18)
--- NOTE | 2016-06-28 11:24 | Internal Med Progress Note ---
<Ashley Pal - Last Filed: 06/28/16 11:22> Date of Encounter: 06/28/16 Time of Encounter: 09:00 - Assessment and plan (1) Sepsis Current Visit: Yes Status: Acute Assessment and plan: On admission with tachycardia, tachypnea, suspected source pulmonary - multifocal pneumonia. 06/25 BC x 2 negative Inf AB neg UAT S/L neg Sputum normal UR reema. Patient has been on Levaquin, Vanc, Rocephin (2g) Day #3 Possibility that Rocephin (2g) was for meningitis coverage, patient reports no photophobia or nuchal rigidity - not elicited on exam either. Will cont Levaquin and Vanc, dc Rocephin. Qualifiers: Sepsis type: sepsis due to unspecified organism Qualified Code(s): A41.9 - Sepsis, unspecified organism (2) Multifocal pneumonia Current Visit: Yes Status: Acute Assessment and plan: Evidenced clinically and on CXR/CTA Chest CTA 06/25/16 03:04 IMPRESSION: 1. No evidence of pulmonary embolism or acute pulmonary abnormality. 2. New large area of consolidation replacing most of the right middle lobe. Additional scattered airspace and reticular opacities in the right upper, right lower and left lower lobes. Overall findings are suspicious for multifocal pneumonia. 3. Stable mediastinal hilar lymphadenopathy. 4. Partial visualization of a large right renal mass. 5. Reflux of contrast into the intrahepatic veins suggestive of right heart dysfunction. Cont Vanc and Levaquin per above. (3) HFrEF (heart failure with reduced ejection fraction) Current Visit: Yes Status: Acute Assessment and plan: 06/25/16 Echo EF 25%, hypokinesis mid-apical segments, consider takotsubo vs ICM Mild TR, no PAH, no evidence of tamponade Monitor I/O, fluid guidelines. Since admission net -1.7L Qualifiers: Heart failure chronicity: acute on chronic Qualified Code(s): I50.23 - Acute on chronic systolic (congestive) heart failure (4) Renal cell adenoma of right kidney Current Visit: Yes Status: Chronic Assessment and plan: On oral chemo, followed by Dr. [facility] of [facility] - Subjective Interval history: Pt seen/eval, he affirms events prompting hospitalization and interval events. Would be in ICU then step down here. He affirms prior productive cough, now improved. Has RCC followed by Dr Alvarez. Denies any fever, chills, chest pain/pressure, nvd. Denies any stiff neck or photophobia. - Constitutional Vitals: Temp Pulse Resp BP Pulse Ox 98.1 F 96 18 108/78 92 06/28/16 07:27 06/28/16 07:27 06/28/16 07:51 06/28/16 07:27 06/28/16 07:51 General appearance: Present: A&O X 3, pleasant, no acute distress - Head Head exam: Present: atraumatic, normocephalic - Eye Eye exam: Present: EOMI, sclera anicteric - ENT ENT exam: Present: mucous membranes moist - Neck Neck exam general surgery: Present: supple, trachea midline - Respiratory Respiratory exam: Present: rhonchi (scant basilar). Absent: accessory muscle use, wheezes - Cardiovascular Cardiovascular exam: Present: +S1, +S2. Absent: JVD - GI/Abdominal GI/Abdominal exam: Present: soft, no peritoneal signs. Absent: tenderness - Extremities Exam Extremities exam: Present: warm, radial pulses palpable and symetrical. Absent : pedal edema - Neurological Exam Neurological exam: Present: strengths equal and symetr throughout. Absent: facial droop Internal Medicine: Result - Labs CBC & Chem 7: 06/28/16 05:31 06/28/16 05:31 Labs: Short CBC 06/28/16 Range/Units 05:31 WBC 6.5 (4.3-11.1) K/mcL Hgb 16.1 (12.9-16.9) g/dL Hct 47.5 (37.5-50.1) % Plt Count 174 (140-400) K/mcL Neutrophils # 5.8 (1.6-8.9) K/mcL BMP 06/28/16 05:31 Sodium 137 Potassium 3.7 Chloride 90 L Carbon Dioxide 35 H BUN 26 Creatinine 0.93 Glucose 159 H Calcium 9.0 - ABG Interpretation ABG results: ABG ABG pH 7.44 pH Units (7.32-7.45) 06/25/16 09:00 ABG pCO2 60 mmHg (35-45) H 06/25/16 09:00 ABG pO2 128 mmHg (85-104) H 06/25/16 09:00 ABG O2 Saturation 99 % (95-98) H 06/25/16 09:00 PT/INR, D-dimer PT 11.9 Seconds (9.4-12.1) 06/25/16 08:56 Consult Discharge Plan - Plan Referrals: Roberto Hensley CNP [Primary Care Provider] - <Ellis Miller Leonila - Last Filed: 06/28/16 17:40> Date of Encounter: 06/28/16 - Assessment and plan (1) Acute respiratory failure with hypoxia Current Visit: Yes Status: Acute Assessment and plan: Wean oxygen as able. (2) Sepsis Current Visit: Yes Status: Acute Qualifiers: Sepsis type: sepsis due to unspecified organism Qualified Code(s): A41.9 - Sepsis, unspecified organism (3) Multifocal pneumonia Current Visit: Yes Status: Acute (4) Acute systolic (congestive) heart failure Current Visit: Yes Status: Acute Assessment and plan: Continues to slowly improve (5) Renal cell carcinoma of right kidney Current Visit: No Status: Chronic - Constitutional Vitals: Temp Pulse Resp BP Pulse Ox 98.1 F 102 18 102/80 89 06/28/16 11:20 06/28/16 11:20 06/28/16 16:01 06/28/16 11:20 06/28/16 16:01 Internal Medicine: Result - Labs CBC & Chem 7: 06/28/16 05:31 06/28/16 05:31 Labs: Short CBC 06/28/16 Range/Units 05:31 WBC 6.5 (4.3-11.1) K/mcL Hgb 16.1 (12.9-16.9) g/dL Hct 47.5 (37.5-50.1) % Plt Count 174 (140-400) K/mcL Neutrophils # 5.8 (1.6-8.9) K/mcL BMP 06/28/16 05:31 Sodium 137 Potassium 3.7 Chloride 90 L Carbon Dioxide 35 H BUN 26 Creatinine 0.93 Glucose 159 H Calcium 9.0 - ABG Interpretation ABG results: ABG ABG pH 7.44 pH Units (7.32-7.45) 06/25/16 09:00 ABG pCO2 60 mmHg (35-45) H 06/25/16 09:00 ABG pO2 128 mmHg (85-104) H 06/25/16 09:00 ABG O2 Saturation 99 % (95-98) H 06/25/16 09:00 PT/INR, D-dimer PT 11.9 Seconds (9.4-12.1) 06/25/16 08:56 - Attending Attestation I examined this patient and my medical decision-making was reviewed with the Resident Physician on 06/28/16. I agree with the documented findings, disposition and treatment plan as described except to the extent set forth below. Mr. Abrams is currently admitted for sepsis and multifocal pneumonia. He remains moderate to high risk due to potential for worsening respiratory status. Mr. Abrams is resting comfortably. He was transferred from ICU yesterday. No acute issues overnight. No fever or chills. No GI symptoms. Cough is somewhat better. Exam Alert. Comfortable Heart reg Coarse rhonchi bilaterally. I/P 1. Hypoxic resp failure - weaning as able 2. Multifocal pneumonia 3. Sepsis 4 Acute exac chronic systolic HF Further diagnoses and plan as above
[2016-06-28] MEDS ORDERED: Potassium Chloride Elixir 20 MEQ/15 ML UDC PO ONE (12:40)
[2016-06-28] MEDS: Vancomycin 1,500 MG in D5% in Water 250 ML IVPB SCH (17:48)
--- NOTE | 2016-06-28 20:03 | Electrocardiograph Report ---
[address] [place] [address] Test Date: 2016-06-26 Pat Name: Heri Abrams Department: 109 Room: 2NE21 Gender: M Senior Qa Tester: KENNEY : 1955 Requested By: Doyle Torres Order Number: [id number] Reading MD: Flash Holland MD Measurements Intervals [place] Rate: 60 P: NV: 0 QRS: -88 QRSD: 122 T: 242 QT: 476 QTc: 476 Interpretive Statements SINUS RHYTHM INDETERMINATE AXIS Poor R wave progression DIFFUSE ISCHEMIA Electronically Signed On 06-28-2016 20:01:54 EDT by Flash Holland MD
[2016-06-28 20:30] LABS: CK-BB (CK isoenzymes) 0 % (0-0); CK-MB (CK isoenzymes) 0 % (0-4); CK-MM (CK-isoenzymes) 100 % (96-100)
[2016-06-29] MEDS: Ipratropium/Albuterol Neb 3 ML IH SCH ×6 (04:03→23:39)
[2016-06-29 04:11] LABS: Hematocrit 47.6 % (37.5-50.1); Mean Corpuscular HGB Conc 33.6 g/dL (31.6-35.5); Mean Corpuscular Hemoglobin 32.6 pg (28.0-33.3); Mean Corpuscular Volume 96.9 fL (83.0-100.0); Mean Platelet Volume 9.9 fL (9.4-12.4); Platelet Count 170 K/mcL (140-400); Red Blood Count 4.91 M/mcL (4.19-5.50); Red Cell Distribution Width 12.6 % (11.5-14.5)
[2016-06-29 04:16] LABS: BUN/Creatinine Ratio 32 (6-26); Blood Urea Nitrogen 31 mg/dL (8-26); Calcium 9.1 mg/dL (8.6-10.8); Chloride 89 mEq/L (98-109); Glucose 157 mg/dL (70-99); Osmolality,Calculated 298 (280-300); Potassium 3.7 mEq/L (3.5-4.5); Sodium 139 mEq/L (136-145); eGFR For African Americans > 60 (> 60); eGFR For Non-African Americans > 60 (> 60)
[2016-06-29 04:21] LABS: Carbon Dioxide 40 mEq/L (19-29)
[2016-06-29] MEDS ORDERED: 0.9 % Sodium Chloride 500 ML IVC ONE (04:34)
[2016-06-29] MEDS: Vancomycin 1,500 MG in D5% in Water 250 ML IVPB SCH ×2 (05:25→18:09)
[2016-06-29 05:27] LABS: Lymphocytes # 0.7 K/mcL (0.6-4.6); Neutrophils # 6.3 K/mcL (1.6-8.9)
[2016-06-29 05:28] LABS: Platelet Estimate Normal (Normal)
[2016-06-29] MEDS: *HR* Heparin 5,000 UNIT/ML VIAL SQ SCH ×2 (05:35→18:09)
[2016-06-29] MEDS: Budesonide/Formoterol 80/4.5 MDI IH SCH ×2 (07:53→19:51)
--- NOTE | 2016-06-29 08:13 | Internal Med Progress Note ---
Addendum entered and electronically signed by Ashley Pal DO 06/29/16 12:06: d/w BLAISE Weller. Cardiology service requests oncology opinion regarding Votrient, whether to proceed with heart catheterization given the prior elevated troponin. Consult placed to oncology service, appreciate recs. Original Note: <Ashley Pal - Last Filed: 06/29/16 08:11> Date of Encounter: 06/29/16 Time of Encounter: 07:35 - Assessment and plan (1) Sepsis Current Visit: Yes Status: Acute Assessment and plan: On admission with tachycardia, tachypnea, suspected source pulmonary - multifocal pneumonia. 06/25 BC x 2 negative Inf AB neg UAT S/L neg Sputum normal UR reema. Patient has been on Levaquin, Vanc, Rocephin (2g) Day #3, Rocephin dc'd 06/28 Possibility that Rocephin (2g) was for meningitis coverage, patient reports no photophobia or nuchal rigidity - not elicited on exam either. Will cont Levaquin and Vanc Day #4 Qualifiers: Sepsis type: sepsis due to unspecified organism Qualified Code(s): A41.9 - Sepsis, unspecified organism (2) Multifocal pneumonia Current Visit: Yes Status: Acute Assessment and plan: Evidenced clinically and on CXR/CTA Chest CTA 06/25/16 03:04 IMPRESSION: 1. No evidence of pulmonary embolism or acute pulmonary abnormality. 2. New large area of consolidation replacing most of the right middle lobe. Additional scattered airspace and reticular opacities in the right upper, right lower and left lower lobes. Overall findings are suspicious for multifocal pneumonia. 3. Stable mediastinal hilar lymphadenopathy. 4. Partial visualization of a large right renal mass. 5. Reflux of contrast into the intrahepatic veins suggestive of right heart dysfunction. Cont Vanc and Levaquin per above. (3) HFrEF (heart failure with reduced ejection fraction) Current Visit: Yes Status: Acute Assessment and plan: 06/25/16 Echo EF 25%, hypokinesis mid-apical segments, consider takotsubo vs ICM Mild TR, no PAH, no evidence of tamponade Monitor I/O, fluid guidelines. Since admission net -2.1L Qualifiers: Heart failure chronicity: acute on chronic Qualified Code(s): I50.23 - Acute on chronic systolic (congestive) heart failure (4) Hypochloremic alkalosis Current Visit: Yes Status: Acute Assessment and plan: In setting of diuresis regimen for HFrEF, likely 2* Lasix with contraction alkalosis. Agree with prior 500cc NS bolus. Hold lasix. Acetazolamide x 1. 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 Che of [facility] - Subjective Interval history: Pt seen/eval, he reports cough still present but improved. Nonproductive. Is on baseline 2L NC O2 at home. Denies f/c cp dyspnea nvd. - Constitutional Vitals: Temp Pulse Resp BP Pulse Ox 97.7 F 83 15 117/78 92 06/29/16 07:08 06/29/16 07:08 06/29/16 07:08 06/29/16 07:08 06/29/16 07:08 General appearance: Present: A&O X 3, pleasant, no acute distress - Head Head exam: Present: atraumatic, normocephalic - Eye Eye exam: Present: EOMI, sclera anicteric - ENT ENT exam: Present: mucous membranes moist - Neck Neck exam general surgery: Present: supple, trachea midline - Respiratory Respiratory exam: Present: rhonchi (scant). Absent: wheezes - Cardiovascular Cardiovascular exam: Present: +S1, +S2. Absent: JVD - GI/Abdominal GI/Abdominal exam: Present: soft, no peritoneal signs. Absent: tenderness - Extremities Exam Extremities exam: Present: warm, radial pulses palpable and symetrical. Absent : pedal edema - Neurological Exam Neurological exam: Present: strengths equal and symetr throughout. Absent: facial droop Internal Medicine: Result - Labs CBC & Chem 7: 06/29/16 03:40 06/29/16 03:40 Labs: Short CBC 06/29/16 Range/Units 03:40 WBC 7.0 (4.3-11.1) K/mcL Hgb 16.0 (12.9-16.9) g/dL Hct 47.6 (37.5-50.1) % Plt Count 170 (140-400) K/mcL Neutrophils # 6.3 (1.6-8.9) K/mcL BMP 06/29/16 03:40 Sodium 139 Potassium 3.7 Chloride 89 L Carbon Dioxide 40 H* BUN 31 H Creatinine 0.97 Glucose 157 H Calcium 9.1 - ABG Interpretation ABG results: ABG ABG pH 7.44 pH Units (7.32-7.45) 06/25/16 09:00 ABG pCO2 60 mmHg (35-45) H 06/25/16 09:00 ABG pO2 128 mmHg (85-104) H 06/25/16 09:00 ABG O2 Saturation 99 % (95-98) H 06/25/16 09:00 PT/INR, D-dimer PT 11.9 Seconds (9.4-12.1) 06/25/16 08:56 Consult Discharge Plan - Plan Referrals: Roberto Hensley CNP [Primary Care Provider] - <Ellis Miller - Last Filed: 06/29/16 19:03> Date of Encounter: 06/29/16 - Assessment and plan (1) Acute respiratory failure with hypoxia Current Visit: Yes Status: Acute Assessment and plan: Wean oxygen as able. (2) Sepsis Current Visit: Yes Status: Acute Qualifiers: Sepsis type: sepsis due to unspecified organism Qualified Code(s): A41.9 - Sepsis, unspecified organism (3) Acute systolic (congestive) heart failure Current Visit: Yes Status: Acute (4) Multifocal pneumonia Current Visit: Yes Status: Acute (5) Renal cell carcinoma of right kidney Current Visit: No Status: Chronic - Constitutional Vitals: Temp Pulse Resp BP Pulse Ox 97.9 F 95 15 120/85 98 06/29/16 16:00 06/29/16 16:00 06/29/16 16:00 06/29/16 16:00 06/29/16 16:00 Internal Medicine: Result - Labs CBC & Chem 7: 06/29/16 03:40 06/29/16 03:40 Labs: Short CBC 06/29/16 Range/Units 03:40 WBC 7.0 (4.3-11.1) K/mcL Hgb 16.0 (12.9-16.9) g/dL Hct 47.6 (37.5-50.1) % Plt Count 170 (140-400) K/mcL Neutrophils # 6.3 (1.6-8.9) K/mcL BMP 06/29/16 03:40 Sodium 139 Potassium 3.7 Chloride 89 L Carbon Dioxide 40 H* BUN 31 H Creatinine 0.97 Glucose 157 H Calcium 9.1 Cardiac Enzymes 06/25/16 Range/Units 08:56 CK-MB (CK-2) 0 (0-4) % - ABG Interpretation ABG results: ABG ABG pH 7.44 pH Units (7.32-7.45) 06/25/16 09:00 ABG pCO2 60 mmHg (35-45) H 06/25/16 09:00 ABG pO2 128 mmHg (85-104) H 06/25/16 09:00 ABG O2 Saturation 99 % (95-98) H 06/25/16 09:00 PT/INR, D-dimer PT 11.9 Seconds (9.4-12.1) 06/25/16 08:56 - Attending Attestation I examined this patient and my medical decision-making was reviewed with the Resident Physician on 06/29/16. I agree with the documented findings, disposition and treatment plan as described except to the extent set forth below. Mr. Abrams is currently admitted for acute systolic heart failure. He is moderate to high risk due to potential for worsening cardiac and respiratory status. Mr. Abrams is feeling OK today. Breathing has been improving. No chest pain. No fever or chills. No GI symptoms. Exam Alert. Comfortable Heart reg No wheeze. Rales present No edema I/P 1. Acute hypoxic resp failure 2. Acute systolic heart failure - meds versus ischemia. Further diagnoses and plan as above Onc consult.
[2016-06-29] MEDS ORDERED: Aminoglycoside Consult 1 EACH MC ONE (08:30)
[2016-06-29] MEDS: Aspirin Enteric Coated 81 MG Tablet PO SCH (08:37)
[2016-06-29] MEDS: Metoprolol XL (24 HR) Succ 25 MG TAB.ER.24H PO SCH (08:37)
[2016-06-29] MEDS: levoFLOXacin 750 MG TABLET PO SCH (08:37)
[2016-06-29] MEDS: Nicotine 7 MG PATCH.TD24 TD SCH (08:42)
[2016-06-29] MEDS: methylPREDNISolone 125 MG/2 ML VIAL IVP SCH ×2 (08:44→21:23)
[2016-06-29] MEDS: Fluticasone Propionate Nasal 50 MCG/SPRAY BOTTLE NS SCH (08:49)
[2016-06-29] MEDS ORDERED: acetaZOLAMIDE 250 MG TABLET PO SCH (09:00)
--- NOTE | 2016-06-29 09:33 | Cardiology Progress Note ---
Date of Encounter: 06/29/16 Time of Encounter: 09:31 Assessment and Plan (1) Elevated troponin Current Visit: Yes Status: Acute Mild troponin elevation in the setting of acute hypoxic and hypercapnic respiratory distress/ pneumonia. Denies chest pain. Labored respirations on my exam. Plan as above - no immediate plan for cath. Discussed with patient today - he is not eager to consider invasive CV procedures. Ideally we would like to evaluate ischemic cause with new cardiomyopathy. Recommend oncology consult today to discuss prognosis and continuation of votrient in acute CHF. Will continue to follow to and re-assess for LHC. Patient agrees with plan. Med management for now. Continue asa, statin, and bb. (2) Abnormal EKG Current Visit: Yes Status: Acute Inferior and anterior/lateral T wave changes on EKG. May be secondary to NSTEMI/ demand ischemia from acute repiratory failure. See plan above. (3) Acute systolic (congestive) heart failure Current Visit: Yes Status: Acute Acute systolic heart failure. Severe LV systolic dysfuction. EF 25%. Severe hypokenesis, akenesis of all mid- apical segments. Basal segment low normal contractility. Mild TR. Normal Size RV and normal RV function. Consider stress induced cardiomyopathy in patient on chemotherapy and with pneumonia vs ischemic cause. Patient initially not candidate for ischemic eval d/t respiratory status. Respiratory status improving and LHC re-discussed. Pt would like to continue medical management and does not strongly feel he should under go any procedures at this time with him currently undergoing treatment for cancer . He would like to see oncology today. We will continue to discuss. No significant fluid overload seen on exam today. Given extra lasix yesterday. Reports no change in symptoms. Lasix discontinued. He does look dry on exam. Mild increase in BUN. Continue to monitor. CHF education reviewed with patient and family. Continue bb. Likely will not tolerate piter-inhibitor. Discussion w patient/family: The assessment and plan as outlined above was discussed with the patient and/or family members who expressed understanding and agreement. All questions were answered. Thank you for involving us in the care of your patient. Please call with any questions. Subjective Principal diagnosis: hypercapnic respiratory failure Interval history: No changes overnight. Concerned about oncology f/u appt tomorrow. Started back on votrient. Objective Vital Signs, Last 4 Hours Temp Pulse Resp BP Pulse Ox 06/29/16 07:38 16 117/78 90 06/29/16 07:08 97.7 F 83 15 117/78 92 General: Conversant, No Apparent Distress, Other (Frail, chachetic male) HEENT: Atraumatic, Normocephaly, Mucus Membranes Moist Neck: No JVD, Normal carotid pulses Cardiac: Reg Rate and Rhythm, Normal S1 and S2, No Murmur, Other (tachycardiac) Lungs: Normal Breath Sounds, No Wheeze, Rales, Rhonchi, Other (diminished throughout) Neuro: Alert and responsive, No focal deficits noted Abdomen: Soft, Non-Tender Skin: No rashes noted on visualized skin Musculoskeletal: No Chest Wall Tenderness Extremities: No Clubbing, No Cyanosis, No Edema, Normal Pulses Results 06/29/16 03:40 06/29/16 03:40 Lab Results 06/29/16 06/29/16 06/29/16 03:40 03:40 03:40 WBC 7.0 Hgb 16.0 Hct 47.6 Plt Count 170 Sodium 139 Potassium 3.7 Chloride 89 L Carbon Dioxide 40 H* BUN 31 H Creatinine 0.97 Glucose 157 H Calcium 9.1 Magnesium 2.2 - EKG Interpretation EKG results cardiology: other (Telemetry shows sinus tachycardia) Consult Discharge Plan - Plan Referrals: Roberto Hensley CNP [Primary Care Provider] -
[2016-06-29 14:33] LABS: CK Total (Ck Isoenzymes) 201 U/L (20-200)
[2016-06-29] MEDS ORDERED: PAZOPANIB HCL 800 MG PO SCH (16:00)
--- NOTE | 2016-06-29 16:22 | Oncology Inp Consult Note ---
<Alexus Weller E - Last Filed: 06/29/16 16:13> Date of Encounter: 06/29/16 Time of Encounter: 15:00 Assessment and Plan (1) Renal cell adenoma of right kidney Status: Chronic Assessment and plan: Will hold Votrient -discussed with patient. (2) Acute congestive heart failure with left ventricular diastolic dysfunction Status: Acute Assessment and plan: WIll hold votrient- this medication can cause CHF. Agree with cardiology that cardiac cath is needed. The above discussed with Dr Che who will see patient after clinic. - Data of Consult Patient: known to practice within the last 3 years Consult date: 06/29/16 Requesting Physician: Ellis Miller DO Primary Care Provider: Roberto Hensley CNP - Consult Narrative Reason for consult: renal cell carcinoma, effects of votrient on heart History of present illness: Mr. Abrams is a 60 year old male admitted on 06/25/2016 through the [place] ED secondary to acute respiratory distress. He had been discharged from [facility] days prior. He has a medical history significant for asthma and metastatic renal cell carcinoma. Chest x-ray dated a new moderate area of consolidation in the right middle lobe. [facility] and redemonstration of mediastinal hilar lymphadenopathy including large calcified right hilar lymph nodes. There was also mild blunting of the left costophrenic angle possibly representing trace effusion. 06/25/16 T of the chest indicated no evidence of pulmonary embolism or acute pulmonary abnormality. There was a new large area of consolidation replacing most of the right middle lobe. Also additional scattered airspace in particulardisease in the right upper, right lower and left lower lobes findings were suspicious for multifocal pneumonia. There was also reflux of contrast in the intrahepatic vein suggestive of right heart dysfunction. 06/25/16 and echocardiogram that indicated severe LV is systolic dysfunction, an LVEF of 25%. There was severe hypokinesis to akinesis of all mid apical myocardial segments. Pericardial effusion. No evidence of temp and on. Consider stress-induced cardiomyopathy versus ischemic cardiomyopathy. Past to see the patient regarding cardiomyopathy in the setting of taking Votrient. Oncology History: In November 2015, the patient had lumbar x-rays followed by an MRI of the spine that showed a tense and meter mass arising from the right kidney. At that time he denied history of hematuria or abdominal pain. He had lost about 25 pounds over the past 2 years secondary to having a decreased appetite. There were the first 2015 he had a ILC of the right paratracheal lymph node that indicated metastatic carcinoma and right middle lobe bronchial alveolar lavage that indicated acute inflammatory cells.immunohistochemical stains support diagnosis of metastatic renal cell carconoma. He has been treated with Votrient since January of 2016. Most recent scans of chest abdomen pelvisof 06/10/2016 indicated; similar appearance of the mediastinal and hilar adenopathy and bilateral pulmonary nodules as well as a dominant right renal mass when compared with previous study of March 2016. There was no new evidence of adenopathy or new lesion. Past Med Surg Social Fam HX - Past Medical History Medical history: cancer, COPD, GERD Psychiatric history: no psych history - Past Surgical History Surgical History: no surgical history - Social History Smoking Status: Current some day smoker Smokeless Tobacco Status: No Alcohol use: none Drug use: none - Family History Father Cause of : cancer Hx Family Cancer: Yes (esophageal cancer) Mother Cause of : pancreatic cancer Hx Family Cancer: Yes (pancreatic) Medications and Allergies Fluticasone/Salmeterol [Advair 250-50 Diskus] 1 puff IH BID 01/07/16 [History] Ipratropium/Albuterol Neb [Duoneb] 3 ml IH TID 01/07/16 [History] Nicotine Patch [Nicoderm] 7 mg TD DAILY 01/07/16 [History] Ondansetron HCl 4 mg PO Q8H PRN #60 tablet 02/07/16 [Rx] Albuterol Sulfate [Proair Hfa] 2 puff IH Q4H PRN #1 hfa.aer.ad 04/06/16 [Rx] Omeprazole [PriLOSEC] 20 mg PO DAILY PRN #45 cap 04/14/16 [Rx] Oxycodone HCl [Oxaydo] 5 mg PO BID PRN #60 tablet.orl 05/12/16 [Rx] Pazopanib HCl [Votrient] 800 mg PO DAILY #120 tablet 06/10/16 [Rx] Acetaminophen [Tylenol] 1,000 mg PO Q6HR PRN 06/25/16 [History] Ipratropium/Albuterol Sulfate [Combivent Respimat Inhal Chrisney] 1 puff IH QID [History] PredniSONE [Prednisone] 10 mg PO AD 06/25/16 [History] Simethicone [Gas-X] 80 mg PO TID PRN 06/25/16 [History] Allergies No Known Allergies Allergy (Verified 12/10/15 15:06) All systems: reviewed and no additional remarkable complaints except as stated Constitutional: Present: fatigue Respiratory: Present: dyspnea (Is currently on continuous O2 at 2-1/2 L/m.), dyspnea on exertion Oncology - Exam - Constitutional Vitals: Temp Pulse Resp BP Pulse Ox 97.7 F 97 15 117/78 98 06/29/16 11:35 06/29/16 11:35 06/29/16 11:35 06/29/16 11:35 06/29/16 11:35 General appearance: cooperative - Head Head exam: Present: normal inspection - ENT ENT exam: Present: mucous membranes moist - Respiratory Respiratory exam: Present: decreased breath sounds, wheezes (Right base) - Cardiovascular Cardiovascular exam: Present: RRR - GI/Abdominal GI/Abdominal exam: Present: soft (Nontender nondistended) - Extremities Exam Extremities exam: Present: normal inspection - Neurological Exam Neurological exam: Present: alert, oriented X3 - Psychiatric Psychiatric exam: Present: normal affect - Skin Skin exam: Present: normal color Oncology - Results - Labs Labs: Short CBC 06/29/16 Range/Units 03:40 WBC 7.0 (4.3-11.1) K/mcL Hgb 16.0 (12.9-16.9) g/dL Hct 47.6 (37.5-50.1) % Plt Count 170 (140-400) K/mcL Neutrophils # 6.3 (1.6-8.9) K/mcL BMP 06/29/16 03:40 Sodium 139 Potassium 3.7 Chloride 89 L Carbon Dioxide 40 H* BUN 31 H Creatinine 0.97 Glucose 157 H Calcium 9.1 Cardiac Enzymes 06/25/16 Range/Units 08:56 CK-MB (CK-2) 0 (0-4) % Consult Discharge Plan - Plan Referrals: Roberto Hensley, DRAFTER (CAD) ELECTRICAL [Primary Care Provider] - <Evelyn Che - Last Filed: 06/29/16 18:12> Date of Encounter: 06/29/16 Assessment and Plan (1) Renal cell carcinoma of right kidney Status: Chronic Assessment and plan: Metastatic kidney cancer, pazopanib held due to infection/pneumonia and decreased EF, which could be side effect from pazopanib therapy. He will be a acndidate for immunotherapy in the future and due to availability of alternative drugs to treat/palliate kidney cancer, we recommended w/u as suggested by cardiology-with cath, rpt echo once infection symptoms resolve. Ct scan findimngs reviewed with pt. Plan of care d/w patient in detail. I have examined patient myself, reviewed history and physical exam findings as dictated by Kiah Weller and agree with assessment and plan as documented above - Data of Consult Requesting Physician: Ellis Miller DO Primary Care Provider: Roberto Hensley CNP - Consult Narrative History of present illness: Mr. Abrams is a 60 year old male Oncology - Exam - Constitutional Vitals: Temp Pulse Resp BP Pulse Ox 97.9 F 95 15 120/85 98 06/29/16 16:00 06/29/16 16:00 06/29/16 16:00 06/29/16 16:00 06/29/16 16:00 Oncology - Results - Labs Labs: Short CBC 06/29/16 Range/Units 03:40 WBC 7.0 (4.3-11.1) K/mcL Hgb 16.0 (12.9-16.9) g/dL Hct 47.6 (37.5-50.1) % Plt Count 170 (140-400) K/mcL Neutrophils # 6.3 (1.6-8.9) K/mcL BMP 06/29/16 03:40 Sodium 139 Potassium 3.7 Chloride 89 L Carbon Dioxide 40 H* BUN 31 H Creatinine 0.97 Glucose 157 H Calcium 9.1 Cardiac Enzymes 06/25/16 Range/Units 08:56 CK-MB (CK-2) 0 (0-4) %
[2016-06-30] MEDS: Ipratropium/Albuterol Neb 3 ML IH SCH ×6 (04:35→23:47)
[2016-06-30 05:57] LABS: Hematocrit 47.8 % (37.5-50.1); Immature Granulocytes % 0.3 % (0-4); Lymphocytes # 0.2 K/mcL (0.6-4.6); Lymphocytes % 3.1 %; Mean Corpuscular HGB Conc 33.5 g/dL (31.6-35.5); Mean Corpuscular Hemoglobin 32.9 pg (28.0-33.3); Mean Corpuscular Volume 98.2 fL (83.0-100.0); Mean Platelet Volume 9.7 fL (9.4-12.4); Monocytes # 0.8 K/mcL (0.0-1.3); Monocytes % 11.6 %; Neutrophils # 6.1 K/mcL (1.6-8.9); Platelet Count 158 K/mcL (140-400); Red Blood Count 4.87 M/mcL (4.19-5.50); Red Cell Distribution Width 12.5 % (11.5-14.5)
[2016-06-30 06:08] LABS: BUN/Creatinine Ratio 30 (6-26); Blood Urea Nitrogen 27 mg/dL (8-26); Calcium 8.8 mg/dL (8.6-10.8); Carbon Dioxide 26 mEq/L (19-29); Chloride 96 mEq/L (98-109); Glucose 150 mg/dL (70-99); Osmolality,Calculated 284 (280-300); Potassium 4.2 mEq/L (3.5-4.5); Sodium 133 mEq/L (136-145); eGFR For African Americans > 60 (> 60); eGFR For Non-African Americans > 60 (> 60)
[2016-06-30] MEDS: Vancomycin 1,500 MG in D5% in Water 250 ML IVPB SCH (06:19)
[2016-06-30] MEDS: *HR* Heparin 5,000 UNIT/ML VIAL SQ SCH ×2 (06:24→18:29)
[2016-06-30] MEDS: Budesonide/Formoterol 80/4.5 MDI IH SCH ×2 (08:00→20:13)
--- NOTE | 2016-06-30 08:55 | Internal Med Progress Note ---
<Ashley Pal - Last Filed: 06/30/16 13:44> Date of Encounter: 06/30/16 Time of Encounter: 08:10 - Assessment and plan (1) Sepsis Current Visit: Yes Status: Acute Assessment and plan: On admission with tachycardia, tachypnea, suspected source pulmonary - multifocal pneumonia. 06/25 BC x 2 negative Inf AB neg UAT S/L neg Sputum normal UR reema. Patient has been on Levaquin, Vanc, Rocephin (2g) Day #3, Rocephin dc'd 06/28 Possibility that Rocephin (2g) was for meningitis coverage, patient reports no photophobia or nuchal rigidity - not elicited on exam either. Will cont Levaquin and Vanc Day #5 Qualifiers: Sepsis type: sepsis due to unspecified organism Qualified Code(s): A41.9 - Sepsis, unspecified organism (2) Multifocal pneumonia Current Visit: Yes Status: Acute Assessment and plan: Evidenced clinically and on CXR/CTA Chest CTA 06/25/16 03:04 IMPRESSION: 1. No evidence of pulmonary embolism or acute pulmonary abnormality. 2. New large area of consolidation replacing most of the right middle lobe. Additional scattered airspace and reticular opacities in the right upper, right lower and left lower lobes. Overall findings are suspicious for multifocal pneumonia. 3. Stable mediastinal hilar lymphadenopathy. 4. Partial visualization of a large right renal mass. 5. Reflux of contrast into the intrahepatic veins suggestive of right heart dysfunction. Cont Vanc and Levaquin per above. (3) HFrEF (heart failure with reduced ejection fraction) Current Visit: Yes Status: Acute Assessment and plan: 06/25/16 Echo EF 25%, hypokinesis mid-apical segments, consider takotsubo vs ICM Mild TR, no PAH, no evidence of tamponade Monitor I/O, fluid guidelines. Since admission net -1L, had held lasix 06/29 due to contraction alkalosis. Qualifiers: Heart failure chronicity: acute on chronic Qualified Code(s): I50.23 - Acute on chronic systolic (congestive) heart failure (4) Hypochloremic alkalosis Current Visit: Yes Status: Acute Assessment and plan: In setting of diuresis regimen for HFrEF, likely 2* Lasix with contraction alkalosis. Agree with prior 500cc NS bolus. Hold lasix. Improving (5) Renal cell adenoma of right kidney Current Visit: Yes Status: Chronic Assessment and plan: On oral chemo, followed by Dr. Che of [facility] Appreciate oncology recs, to hold Voltrient given CHF. Per oncology note, agree with cardiology team regarding LHC - Subjective Interval history: Pt seen/eval, he reports no fever, chills, chest pain, dyspnea, nvd. Feels better overall, still some nonproductive cough. - Constitutional Vitals: Temp Pulse Resp BP Pulse Ox 97.9 F 73 18 124/83 97 06/30/16 07:35 06/30/16 07:35 06/30/16 08:02 06/30/16 07:35 06/30/16 08:02 General appearance: Present: A&O X 3, pleasant, no acute distress - Head Head exam: Present: atraumatic, normocephalic - Eye Eye exam: Present: EOMI, sclera anicteric - ENT ENT exam: Present: mucous membranes moist - Neck Neck exam general surgery: Present: supple, trachea midline - Respiratory Respiratory exam: Present: rhonchi (scant). Absent: wheezes - Cardiovascular Cardiovascular exam: Present: +S1, +S2. Absent: JVD - GI/Abdominal GI/Abdominal exam: Present: soft, no peritoneal signs. Absent: tenderness - Extremities Exam Extremities exam: Present: warm, radial pulses palpable and symetrical. Absent : pedal edema Internal Medicine: Result - Labs CBC & Chem 7: 06/30/16 05:48 06/30/16 05:48 Labs: Short CBC 06/30/16 Range/Units 05:48 WBC 7.2 (4.3-11.1) K/mcL Hgb 16.0 (12.9-16.9) g/dL Hct 47.8 (37.5-50.1) % Plt Count 158 (140-400) K/mcL Neutrophils # 6.1 (1.6-8.9) K/mcL BMP 06/30/16 05:48 Sodium 133 L Potassium 4.2 Chloride 96 L Carbon Dioxide 26 BUN 27 H Creatinine 0.90 Glucose 150 H Calcium 8.8 Cardiac Enzymes 06/25/16 Range/Units 08:56 CK-MB (CK-2) 0 (0-4) % - ABG Interpretation ABG results: ABG ABG pH 7.44 pH Units (7.32-7.45) 06/25/16 09:00 ABG pCO2 60 mmHg (35-45) H 06/25/16 09:00 ABG pO2 128 mmHg (85-104) H 06/25/16 09:00 ABG O2 Saturation 99 % (95-98) H 06/25/16 09:00 PT/INR, D-dimer PT 11.9 Seconds (9.4-12.1) 06/25/16 08:56 Consult Discharge Plan - Plan Referrals: Roberto Hensley CNP [Primary Care Provider] - <Celso Wren - Last Filed: 06/30/16 18:33> Date of Encounter: 06/30/16 - Constitutional Vitals: Temp Pulse Resp BP Pulse Ox 97.9 F 87 15 115/75 96 06/30/16 11:53 06/30/16 11:53 06/30/16 16:23 06/30/16 11:53 06/30/16 16:23 Internal Medicine: Result - Labs CBC & Chem 7: 06/30/16 05:48 06/30/16 05:48 Labs: Short CBC 06/30/16 Range/Units 05:48 WBC 7.2 (4.3-11.1) K/mcL Hgb 16.0 (12.9-16.9) g/dL Hct 47.8 (37.5-50.1) % Plt Count 158 (140-400) K/mcL Neutrophils # 6.1 (1.6-8.9) K/mcL BMP 06/30/16 05:48 Sodium 133 L Potassium 4.2 Chloride 96 L Carbon Dioxide 26 BUN 27 H Creatinine 0.90 Glucose 150 H Calcium 8.8 Cardiac Enzymes 06/25/16 Range/Units 14:26 CK-MB (CK-2) 0 (0-4) % - ABG Interpretation ABG results: ABG ABG pH 7.44 pH Units (7.32-7.45) 06/25/16 09:00 ABG pCO2 60 mmHg (35-45) H 06/25/16 09:00 ABG pO2 128 mmHg (85-104) H 06/25/16 09:00 ABG O2 Saturation 99 % (95-98) H 06/25/16 09:00 PT/INR, D-dimer PT 11.9 Seconds (9.4-12.1) 06/25/16 08:56 - Attending Attestation I examined this patient and my medical decision-making was reviewed with the [employer]/PA/Advanced Practice Nurse/Resident Physician. I agree with the documented findings, disposition and treatment plan as described except to the extent set forth below.
--- NOTE | 2016-06-30 09:36 | Event Note ---
Date of Encounter: 06/30/16 Time of Encounter: 09:31 - Cardiology Event Note Pt seen by oncology. Appreciate input. Recommended discontinuing votrient that can cause severe CHF. Also agree with [facility] to r/o ischemic cause of cardiomyoapthy, EF25% and elevated troponin. [facility] indication, risks, benefit and alternatives discussed. Pt voiced understanding and is agreeable. Respiratory status improved significantly. Currently laying flat with no distress. Noted to have occasional atrial tachycardia. HR currently 94 bpm. HR as high as 130 bpm this morning. May be related to breathing treatments. Unable to increase bb any further d/t marginally low b/p.
[2016-06-30] MEDS: methylPREDNISolone 125 MG/2 ML VIAL IVP SCH ×2 (09:49→22:09)
[2016-06-30] MEDS: levoFLOXacin 750 MG TABLET PO SCH (09:50)
[2016-06-30] MEDS: Aspirin Enteric Coated 81 MG Tablet PO SCH (09:50)
[2016-06-30] MEDS: Metoprolol XL (24 HR) Succ 25 MG TAB.ER.24H PO SCH (09:50)
[2016-06-30] MEDS: Nicotine 7 MG PATCH.TD24 TD SCH (09:51)
[2016-06-30] MEDS: Fluticasone Propionate Nasal 50 MCG/SPRAY BOTTLE NS SCH (09:52)
[2016-06-30 11:41] LABS: CK Total (Ck Isoenzymes) 143 U/L (20-200)
--- NOTE | 2016-06-30 14:07 | Pre-Sedation Evaluation ---
Pre-sedation evaluation - Pre-sedation checklist Date of procedure: 06/30/16 Procedure: [facility] Recent Vitals: Last Vital Signs Temp 97.9 F 06/30/16 11:53 Pulse 87 06/30/16 11:53 Resp 15 06/30/16 11:53 BP 115/75 06/30/16 11:53 Pulse Ox 96 06/30/16 11:53 H&P (including ROS) documented in medical record: Yes Previous reaction to sedatives/anesthetics: No Dietary Status: NPO after Midnight Airway Assessment: Patient can open mouth completely, TMJ function normal, Micrognathia (under-bite, receding chin) absent, Neck with adequate range of motion Dentition: poor dentition Possible difficult airway: No ASA Classification *see protocol: CLASS II-Mild systemic disease Plan of Care: Pt appropriate candidate for procedure/moderate/conscious sedation , Risks/benefits of procedure/sedation discussed w/ patient/family
[2016-06-30] MEDS ORDERED: 0.9 % Sodium Chloride 1,000 ML ONE ×2 (15:02→15:18)
[2016-06-30] MEDS ORDERED: *HR* Heparin 10,000 UNIT/10 ML VIAL ONE (15:03)
[2016-06-30] MEDS ORDERED: Heparin 1,000 UNITS/500 mL NS 500 ML ONE (15:03)
[2016-06-30] MEDS ORDERED: *HR* FentaNYL (PF) 100 MCG/2 ML VIAL ONE (15:18)
[2016-06-30] MEDS ORDERED: *HR* Midazolam HCl 2 MG/2 ML VIAL ONE (15:18)
[2016-06-30] MEDS ORDERED: Nitroglycerin 1,000 MCG/10 ML VIAL IV ONE (15:38)
--- NOTE | 2016-06-30 16:11 | Invasive Diagnostic Lab Proc ---
Name: Heri Abrams Date of Study: 06/30/2016 Date: 1955 Ht: 70.9in Medical Record#: [id number] Age: 60 Wt: 120.37lb Gender: Male BSA: 1.7 Order #: [id number] BMI: 16.85 Physicians Procedure Physician: Alessandra Henry MD, [facility] Referring MD: Referring MD: Staff Name Position Time In [facility], Brii RT (R) Monitor 03:19 PM Alma Delia Messina RT (R) Scrub 03:19 PM Jazmin Ca RN Collections Technician 03:19 PM Brii Pickens RT (R) Monitor 03:54 PM Indications Indication Cardiomyopathy Procedures Performed Procedure L HRT ARTERY/VENTRICLE ANGIO Pre-Procedure Checklist Informed consent is complete signed and on chart. H\\T\\P is on chart. ID band is on and ID verified with patient. Patient NPO for procedure The procedure was described for the patient and questions were answered. Blood Pressure: 124/83 ECG is on chart. Rhythm: NSR Plan of Care Patient will tolerate the procedure without complications. Adequate level of comfort will be maintained. Hemodynamics will remain stable Patient will recover from procedure without complications. Respiratory function will be maintained. Cardiac rhythm will remain stable. Patient temperature will be maintained. Patient and/or family have verbalized understanding of the procedure. Patient Education Intravenous Access Time IV Size Location DC'd Fluid/Drip Rate Units RN 20g 1 /" Patent On Arrival Rt Arm 0.9NaCl 25 ml/hr Jazmin Ca RN Allergies No Known Allergies Vital Signs Time BP (mmHg) HR (bpm) O2 Sat. RR (bpm) LOC 124 / 83 73 97 % 16 5 = Fully awake and oriented or at pre-proc level 03:25 PM 120 / 80 114 91 % 03:30 PM 116 / 81 100 91 % 03:35 PM 122 / 77 100 92 % 20 03:40 PM 109 / 80 99 94 % 03:45 PM 118 / 77 105 93 % 16 03:50 PM 118 / 76 222 94 % 0 03:55 PM 125 / 78 106 94 % 10 Procedural Medications Time Medication Dose Units Method Given By 03:33 PM Versed 2 mg Intravenous Jazmin Ca RN 03:33 PM Fentanyl 50 mcg Intravenous Jazmin Ca RN 03:33 PM Benadryl 25 mg Intravenous Jazmin Ca RN 03:33 PM Lidocaine 2% 8 ml Subcutaneous Alessandra Henry MD, [facility] ASA Classification: CLASS II- Mild systemic disease (i.e. well-controlled diabetes, hypertension, asthma, cigarette smoking) Taz Score Preprocedure Postprocedure Activity 2- Moves 4 extremities sustained head lift Activity 2- Moves 4 extremities sustained head lift Circulation 2- SBP +/= 20 points of pre-anesthetic level Circulation 2- SBP +/= 20 points of pre-anesthetic level Consciousness 2- Awake and alert oriented x 3 Consciousness 2- Awake and alert oriented x 3 O2 Saturation 2- Able to maintain O2 satruation of 92% on room air O2 Saturation 2- Able to maintain O2 satruation of 92% on room air Respiratory 2- Able to deep breathe and cough well Respiratory 2- Able to deep breathe and cough well Total Score 10 Total Score 10 Contrast Agent: Isovue Diagnostic Contrast: 87 ml Total Contrast: 87 ml Fluoro Dose: 111 mGy Procedure Log Time Note Enter By 03:08 PM CathStat 03:13 PM Pt arrived to systems testing laboratory technician 2 at 15:13 tsites 03:19 PM Patient charges- Angio tray pack, Navilyst 3mm J, Pulse Oximetry and ACIST tubing and transducer tsites 03:19 PM Case Delayed No tsites 03:19 PM Physician arrived 15:19 tsites 03:19 PM Meet and greet completed tsites 03:19 PM Sign in performed according to hospital policy. tsites 03:19 PM Procedure start 15:19 tsites 03:19 PM Brii Seth RT (R) Position: Monitor Time in: 15:19 tsites 03:19 PM Alma Delia Messina RT (R) Position: Scrub Time in: 15:19 tsites 03:19 PM Jazmin Ca RN Position: Collections Technician Time in: 15:19 tsites 03:25 PM Vitals capture started with the following parameters, Patient=Adult, Interval=5 min, Initial Xjcfmhzb=888 mmHg, Deflation Rate=5 mmHg, Cuff placed on Left Arm 03:25 PM TK=975 bpm, FRQO=994/80 mmhg, SpO2=91 % 03:26 PM Hair removed from procedure site in procedure lab using clippers. Bilateral groin prepped with Chloraprep by Jazmin Ca RN, safety strap applied then patient was draped. Skin intact. tsites 03:30 PM AZ=367 bpm, YHIY=414/81 mmhg, SpO2=91.0 % 03:33 PM Time: 15:33 Versed 2 mg Intravenous Given by Jazmin Ca RN tsites 03:33 PM Time: 15:33 Fentanyl 50 mcg Intravenous Given by Jazmin Ca RN tsites 03:33 PM Time: 15:33 Benadryl 25 mg Intravenous Given by Jazmin Ca RN tsites 03:33 PM Time out performed according to hospital policy tsites 03:35 PM Pressure channel 1 zeroed. 03:35 PM SE=772 bpm, EFHF=465/77 mmhg, SpO2=92.0 %, Resp=20 B/min 03:38 PM Time: 15:33 8 ml Lidocaine 2% to right groin Subcutaneous Given by Alessandra Henry MD, [facility] tsites 03:39 PM Access obtained by percutaneous puncture. 5Fr 10cm Terumo Wolcott sheath placed in right Femoral artery. [id number] tsites 03:39 PM 5Fr FL 4 catheter inserted over the wire [facility] tsites 03:40 PM LCA angiography performed in multiple views. tsites 03:40 PM Recorded Pressure: Ao, GE=618, Condition=Condition 1 (Aorta) Ao 123/94/107 03:40 PM HR=99 bpm, PGWU=333/80 mmhg, SpO2=94.0 % 03:41 PM wire reinserted catheter removed tsites 03:41 PM 5Fr FR 4 catheter inserted over the wire DN tsites 03:42 PM RCA angiography performed in multiple views. tsites 03:43 PM Recorded Pressure: Ao, HR=99, Condition=Condition 1 (Aorta) Ao 124/107/115 03:43 PM wire reinserted catheter removed tsites 03:44 PM 5Fr Pigtail catheter inserted over the wire DN tsites 03:44 PM Catheter selectively placed in left ventricle tsites 03:44 PM Bolus angiogram of left Ventricle complete: 8 ml/sec for a total of 24 mls tsites 03:44 PM Pressure channel 1 zeroed. 03:44 PM Recorded Pressure: LV, ZD=283, Condition=Condition 1 (Left Ventricle) LV 78/10/20 03:45 PM Recorded Pressure: LV, Ao, DA=414, Condition=Condition 1 (Left Ventricle) LV 91/31/53, (Aorta) Ao 89/70/80 03:45 PM LZ=999 bpm, GPFQ=884/77 mmhg, SpO2=93 %, Resp=16 B/min 03:46 PM wire reinserted catheter removed tsites 03:46 PM Physician reviewing films tsites 03:47 PM Bolus angiogram of right Femoral complete: 2 ml/sec for a total of 4 mls tsites 03:47 PM Procedure completed at 15:47 tsites 03:48 PM Sign out completed: Radiation Dose 111 mGy Fluoro Time: 1.9 Isovue 370 - 500ml contrast 87.1 ml given by Alessandra Henry MD, [facility]. Complications: NoneCardiac Rehab Consult needed: NoConfirmed administered medications: Yes tsites 03:48 PM Isovue 370 - 500ml,1 Bottle(s) used. tsites 03:48 PM Vitals capture stopped. 03:49 PM Post ECG NSR tsites 03:49 PM Vitals capture started with the following parameters, Patient=Adult, Interval=5 min, Initial Zpusuagc=563 mmHg, Deflation Rate=5 mmHg, Cuff placed on Left Arm 03:50 PM JG=099 bpm, ZWKL=203/76 mmhg, SpO2=94.0 %, Resp=0 B/min 03:50 PM Post Blood Pressure 118/77 tsites 03:50 PM 15:50 Post Pulses Bilateral DP \\T\\ PT 1+ tsites 03:50 PM Information taught Cardiac Cath tsites 03:50 PM Education needs Procedure, Plan of Care, and Responsibilities of Patient in Care tsites 03:50 PM Learning barriers :None tsites 03:50 PM Education Methods Verbal tsites 03:50 PM Education evaluation Able to repeat information tsites 03:50 PM Arterial sheath pulled using manual compression for 15 minutes by Alma Delia Messina RT (R) tsites 03:52 PM Lesion found in Proximal LAD. Pre Stenosis: 15 Pre MARCUS Flow: tsites 03:53 PM Lesion found in Proximal Circumflex. Pre Stenosis: 15 Pre MARCUS Flow: tsites 03:53 PM Proximal Left Anterior Descending Coronary Artery with 15% stenosis. If graft is supplying this territory, 0 % stenosis. tsites 03:53 PM Circumflex, Obtuse Marginal, Left Posterior Descending, and Left Posterolateral Coronary Arteries with 15 % stenosis. If graft is supplying this area, 0 % stenosis tsites 03:54 PM Brii Pickens RT (R) Position: Monitor Time in: 15:54 tsites 03:55 PM JO=826 bpm, HJTV=207/78 mmhg, SpO2=94 %, Resp=10 B/min 03:55 PM no family at this time tsites 04:01 PM Report given to choco POSADAS Pt taken to E Room #21. 16:01 tsites 04:01 PM Delay to floor No tsites 04:01 PM Patient out of room: 16:01 tsites 04:02 PM Site status No bleeding/hematoma - Rt Groin as reported by Alma Delia Messina RT (R) at 16:01 tsites Complications Complication None Hemodynamics Pressures Site Systolic/A Wave Diastolic/V Wave Mean AO 123 94 107 AO 124 107 115 LV 78 10 20 LV 91 31 53 AO 89 70 80 Post Procedure Information Blood Pressure: 118/77 mmHg Rhythm: NSR Post procedural instructions were given Closure Device Time Device Success/Fail 06/30/2016 3:54:00 PM Manual Compression Successful Site Checks Time Location Status Staff Sheath In? Note 04:01 PM Rt Groin No bleeding/hematoma Alma Delia Messina RT (R) Pulses Time Site Pre-Procedure Post-Procedure Note Bilateral DP \\T\\ PT 1+ 3:50:00 PM Bilateral DP \\T\\ PT 1+ Updated by Brii Seth RT (R) on 06/30/2016 4:07:04 PM RT Josselyn electronically signed on 06/30/2016 4:07:48 PM with status of Final
--- NOTE | 2016-06-30 17:11 | Invasive Diagnostic Lab ---
Name: Heri Abrams Date of Study: 06/30/2016 Date: 1955 Ht: 180.0 cm /70.9 in Medical Record#: [id number] Age: 60 Wt: 54.6 kg / 120.37 lb Account/Order#: [id number] Gender: Male BSA: 1.7 Order #: [id number] Fluoro Dose: 111 mGy BMI: 16.85 Procedure Physician: Alessandra Henry MD, FACC Referring MD: Referring MD: Procedures Performed: LEFT HEART CATH Indications: Cardiomyopathy Impressions: Minimal nonobstructive coronary artery disease. The left ventricle is normal and has normal contractility EF 45% Recommendations: Optimal medical therapy of patient's disease. Aggressive risk factor modification. Procedure Access obtained in the right Femoral artery by percutaneous puncture Complications: None Contrast: Isovue 87ml Closure Device: Manual Compression Hemodynamics: Pressures Site Systolic/ A Wave Diastolic/ V Wave End Diastolic/ Mean HR AO 123 94 107 100 AO 124 107 115 99 LV 78 10 20 105 LV 91 31 53 102 AO 89 70 80 104 LV Ventriculography Ejection Method: LV Gram Ejection Fraction: 45% Wall Motion: BROWN Anterobasal Mild Hypokinesis Anterolateral Mild Hypokinesis Apical: Mild Hypokinesis Inferoapical Mild Hypokinesis Inferobasal Mild Hypokinesis Coronary Dominance: right Lesion Findings/Interventions * Left Main Coronary Artery The LMCA is angiographically free of disease. * Left Anterior Descending There is a 15% stenosis in the Proximal LAD. * Circumflex There is a 15% stenosis in the Proximal Circumflex. * Right Coronary Artery The RCA is angiographically free of disease. The Right PDA is angiographically free of disease. 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 Updated by Alessandra Henry MD, FACC on 06/30/2016 5:03:42 PM Alessandra Henry MD, FACC electronically signed on 06/30/2016 5:05:03 PM with status of Final
--- NOTE | 2016-06-30 17:17 | Event Note ---
Date of Encounter: 06/30/16 Time of Encounter: 17:15 - Cardiology Event Note LHC showed minimal CAD. EF improved at 45%. Continue bb and add low dose piter- inhibitor. Remains euvolemic. Cardiology will sign off. Please call with questions. Out pt f/u one week after discharge.
[2016-07-01 04:39] LABS: Basophils % 0.1 %; Hematocrit 51.2 % (37.5-50.1); Hemoglobin 16.4 g/dL (12.9-16.9); Immature Granulocytes % 0.4 % (0-4); Lymphocytes # 0.3 K/mcL (0.6-4.6); Lymphocytes % 3.9 %; Mean Corpuscular Hemoglobin 31.9 pg (28.0-33.3); Mean Corpuscular Volume 99.6 fL (83.0-100.0); Mean Platelet Volume 9.7 fL (9.4-12.4); Monocytes # 0.7 K/mcL (0.0-1.3); Monocytes % 9.3 %; Neutrophils # 6.7 K/mcL (1.6-8.9); Platelet Count 147 K/mcL (140-400); Red Blood Count 5.14 M/mcL (4.19-5.50); Red Cell Distribution Width 12.4 % (11.5-14.5); Segmented Neutrophils % 86.3 %
[2016-07-01] MEDS: Ipratropium/Albuterol Neb 3 ML IH SCH ×3 (04:39→11:07)
[2016-07-01 05:00] LABS: BUN/Creatinine Ratio 35 (6-26); Blood Urea Nitrogen 29 mg/dL (8-26); Calcium 8.9 mg/dL (8.6-10.8); Carbon Dioxide 27 mEq/L (19-29); Chloride 100 mEq/L (98-109); Glucose 135 mg/dL (70-99); Osmolality,Calculated 288 (280-300); Potassium 4.2 mEq/L (3.5-4.5); Sodium 135 mEq/L (136-145); eGFR For African Americans > 60 (> 60); eGFR For Non-African Americans > 60 (> 60)
[2016-07-01 05:15] LABS: Thyroid Stimulating Hormone 0.592 mcIU/mL (0.350-4.840)
[2016-07-01] MEDS: Budesonide/Formoterol 80/4.5 MDI IH SCH ×2 (07:39→21:52)
[2016-07-01] MEDS ORDERED: 0.9 % Sodium Chloride 500 ML IVC ONE (08:58)
[2016-07-01] MEDS: *HR* Heparin 5,000 UNIT/ML VIAL SQ SCH ×2 (09:30→17:56)
[2016-07-01] MEDS: levoFLOXacin 750 MG TABLET PO SCH (09:34)
[2016-07-01] MEDS: methylPREDNISolone 125 MG/2 ML VIAL IVP SCH ×2 (09:34→20:51)
[2016-07-01] MEDS: Aspirin Enteric Coated 81 MG Tablet PO SCH (09:34)
[2016-07-01] MEDS: Nicotine 7 MG PATCH.TD24 TD SCH (09:35)
[2016-07-01] MEDS: Metoprolol XL (24 HR) Succ 25 MG TAB.ER.24H PO SCH (09:35)
[2016-07-01] MEDS: Fluticasone Propionate Nasal 50 MCG/SPRAY BOTTLE NS SCH (09:36)
[2016-07-01] MEDS ORDERED: Vancomycin 750 MG in D5% in Water 250 ML IVPB SCH (12:00)
[2016-07-01] MEDS ORDERED: 3% Sodium Chloride Inhalation 4 ML VIAL.NEB IH ONE (13:00)
--- NOTE | 2016-07-01 13:05 | Internal Med Progress Note ---
<Ashley Pal - Last Filed: 07/01/16 13:03> Date of Encounter: 07/01/16 Time of Encounter: 10:00 - Assessment and plan (1) Sepsis Current Visit: Yes Status: Acute Assessment and plan: On admission with tachycardia, tachypnea, suspected source pulmonary - multifocal pneumonia. 06/25 BC x 2 negative Inf AB neg UAT S/L neg Sputum normal UR reema. Patient has been on Levaquin, Vanc, Rocephin (2g) Day #3, Rocephin dc'd 06/28 Possibility that Rocephin (2g) was for meningitis coverage, patient reports no photophobia or nuchal rigidity - not elicited on exam either. Will cont Levaquin#6 07/01 Given lactic acidosis and tachycardia, concern for worsening progression of pna. Repeat 2-V CXR Repeat BC x 2 Added Augmentin, restart vancomycin IV. Cont Levaquin. RT to induce sputum for culture. Qualifiers: Sepsis type: sepsis due to unspecified organism Qualified Code(s): A41.9 - Sepsis, unspecified organism (2) Multifocal pneumonia Current Visit: Yes Status: Acute Assessment and plan: Evidenced clinically and on CXR/CTA Chest CTA 06/25/16 03:04 IMPRESSION: 1. No evidence of pulmonary embolism or acute pulmonary abnormality. 2. New large area of consolidation replacing most of the right middle lobe. Additional scattered airspace and reticular opacities in the right upper, right lower and left lower lobes. Overall findings are suspicious for multifocal pneumonia. 3. Stable mediastinal hilar lymphadenopathy. 4. Partial visualization of a large right renal mass. 5. Reflux of contrast into the intrahepatic veins suggestive of right heart dysfunction. 06/30 Had stopped vanc, deescalated to levaquin 07/01 Noted lactic acidosis with tachycardia 100's. Redraw BC x 2. Sputum culture to be induced by RT. Added Augmentin, reintroduced vancomycin. (3) HFrEF (heart failure with reduced ejection fraction) Current Visit: Yes Status: Acute Assessment and plan: 06/25/16 Echo EF 25%, hypokinesis mid-apical segments, consider takotsubo vs ICM Mild TR, no PAH, no evidence of tamponade Monitor I/O, fluid guidelines. Since admission net -1L, had held lasix 06/29 due to contraction alkalosis. 06/30 LHC with EF improved at 45%. To continue bb and add low dose piter-inhibitor. Appreciate cardiology recs Qualifiers: Heart failure chronicity: acute on chronic Qualified Code(s): I50.23 - Acute on chronic systolic (congestive) heart failure (4) Hypochloremic alkalosis Current Visit: Yes Status: Acute Assessment and plan: In setting of diuresis regimen for HFrEF, likely 2* Lasix with contraction alkalosis. Agree with prior 500cc NS bolus. Hold lasix. Improving Consider resolved. 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 Che of [facility] Appreciate oncology recs, to hold Voltrient given CHF. - Subjective Interval history: Pt seen/eval, with interval labs disclosing elevated lactate. He does have mild tachycardia in 100's, is on duonebs. Underwent LHC yesterday, right groin site no tenderness or hematoma. He still has a persistent cough, but nonproductive. He has baseline O2 2LNC, at home. He denies any chest pain/pressure, dyspnea, fever, chills, nvd. States he feels better today than yesterday. - Constitutional Vitals: Temp Pulse Resp BP Pulse Ox 97.5 F L 78 16 103/64 91 07/01/16 11:46 07/01/16 11:46 07/01/16 11:46 07/01/16 11:46 07/01/16 11:46 General appearance: Present: A&O X 3, pleasant - Head Head exam: Present: atraumatic, normocephalic - Eye Eye exam: Present: EOMI, sclera anicteric - ENT ENT exam: Present: mucous membranes moist - Neck Neck exam general surgery: Present: supple, trachea midline - Respiratory Respiratory exam: Present: rhonchi (scant). Absent: accessory muscle use, wheezes - Cardiovascular Cardiovascular exam: Present: +S1, +S2. Absent: JVD - GI/Abdominal GI/Abdominal exam: Present: no peritoneal signs. Absent: tenderness - Extremities Exam Extremities exam: Present: warm, radial pulses palpable and symetrical. Absent : pedal edema Additional comments: R groin site bandaged, cdi, no hematoma Internal Medicine: Result - Labs CBC & Chem 7: 07/01/16 04:18 04/26/17 04:18 Labs: Short CBC 07/01/16 Range/Units 04:18 WBC 7.8 (4.3-11.1) K/mcL Hgb 16.4 (12.9-16.9) g/dL Hct 51.2 H (37.5-50.1) % Plt Count 147 (140-400) K/mcL Neutrophils # 6.7 (1.6-8.9) K/mcL BMP 07/01/16 04:18 Sodium 135 L Potassium 4.2 Chloride 100 Carbon Dioxide 27 BUN 29 H Creatinine 0.84 Glucose 135 H Calcium 8.9 - ABG Interpretation ABG results: ABG ABG pH 7.44 pH Units (7.32-7.45) 06/25/16 09:00 ABG pCO2 60 mmHg (35-45) H 06/25/16 09:00 ABG pO2 128 mmHg (85-104) H 06/25/16 09:00 ABG O2 Saturation 99 % (95-98) H 06/25/16 09:00 PT/INR, D-dimer PT 11.9 Seconds (9.4-12.1) 06/25/16 08:56 Consult Discharge Plan - Plan Referrals: Roberto Hensley CNP [Primary Care Provider] - <Celso Wren P - Last Filed: 07/01/16 16:56> Date of Encounter: 07/01/16 - Constitutional Vitals: Temp Pulse Resp BP Pulse Ox 97.6 F 105 16 87/70 99 07/01/16 15:46 07/01/16 15:46 07/01/16 15:46 07/01/16 15:46 07/01/16 15:46 Internal Medicine: Result - Labs CBC & Chem 7: 07/01/16 04:18 07/01/16 04:18 Labs: Short CBC 07/01/16 Range/Units 04:18 WBC 7.8 (4.3-11.1) K/mcL Hgb 16.4 (12.9-16.9) g/dL Hct 51.2 H (37.5-50.1) % Plt Count 147 (140-400) K/mcL Neutrophils # 6.7 (1.6-8.9) K/mcL BMP 07/01/16 04:18 Sodium 135 L Potassium 4.2 Chloride 100 Carbon Dioxide 27 BUN 29 H Creatinine 0.84 Glucose 135 H Calcium 8.9 - ABG Interpretation ABG results: ABG ABG pH 7.44 pH Units (7.32-7.45) 06/25/16 09:00 ABG pCO2 60 mmHg (35-45) H 06/25/16 09:00 ABG pO2 128 mmHg (85-104) H 06/25/16 09:00 ABG O2 Saturation 99 % (95-98) H 06/25/16 09:00 PT/INR, D-dimer PT 11.9 Seconds (9.4-12.1) 06/25/16 08:56 - Impressions Impressions Chest X-Ray 07/01/16 13:00 IMPRESSION: Significant interval improvement of the right middle lobe consolidation. Trace pleural effusions. D/ / Yonathan Orozco MD / Yonathan Orozco MD Interpreting Provider: Yonathan Orozco MD - Attending Attestation I examined this patient and my medical decision-making was reviewed with the EDGE B[employer]ING MACHINE OFFBEARER/PA/Advanced Practice Nurse/Resident Physician. I agree with the documented findings, disposition and treatment plan as described except to the extent set forth below.
[2016-07-01] MEDS: 0.9 % Sodium Chloride 1,000 ML IVC SCH (15:18)
[2016-07-01] MEDS: Vancomycin 1,000 MG in D5% in Water 250 ML IVPB SCH ×2 (15:19→17:54)
[2016-07-01 17:23] LABS: Adenovirus Not Detected (Not Detect); Bordetella Pertussis Not Detected (Not Detect); Chlamydophila pneumoniae Not Detected (Not Detect); Coronavirus 229E Not Detected (Not Detect); Coronavirus HKU1 Not Detected (Not Detect); Coronavirus NL63 Not Detected (Not Detect); Coronavirus OC43 Not Detected (Not Detect); Human Metapneumovirus Not Detected (Not Detect); Human Rhinovirus/Enterovirus Not Detected (Not Detect); Influenza A Subtype 2009 H1 Not Detected (Not Detect); Influenza A Untypeable Not Detected (Not Detect); Influenza B Not Detected (Not Detect); Mycoplasma pneumoniae Not Detected (Not Detect); Parainfluenza Virus 1 Not Detected (Not Detect); Parainfluenza Virus 2 Not Detected (Not Detect); Parainfluenza Virus 3 ***DETECTED*** (Not Detect); Parainfluenza Virus 4 Not Detected (Not Detect); Respiratory Syncytial Virus Not Detected (Not Detect)
[2016-07-02] MEDS: 0.9 % Sodium Chloride 1,000 ML IVC SCH (05:17)
[2016-07-02] MEDS: Vancomycin 1,000 MG in D5% in Water 250 ML IVPB SCH (05:18)
[2016-07-02 05:19] LABS: Hematocrit 45.8 % (37.5-50.1); Hemoglobin 15.1 g/dL (12.9-16.9); Immature Granulocytes % 0.5 % (0-4); Lymphocytes # 0.3 K/mcL (0.6-4.6); Lymphocytes % 3.7 %; Mean Corpuscular Hemoglobin 33.1 pg (28.0-33.3); Mean Corpuscular Volume 100.4 fL (83.0-100.0); Mean Platelet Volume 10.1 fL (9.4-12.4); Monocytes # 0.5 K/mcL (0.0-1.3); Monocytes % 6.6 %; Platelet Count 152 K/mcL (140-400); Red Blood Count 4.56 M/mcL (4.19-5.50); Red Cell Distribution Width 12.6 % (11.5-14.5); Segmented Neutrophils % 89.2 %
[2016-07-02] MEDS: *HR* Heparin 5,000 UNIT/ML VIAL SQ SCH (05:20)
[2016-07-02 05:36] LABS: Alanine Aminotransferase 20 Units/L (0-55); Albumin 2.7 g/dL (3.5-5.0); Albumin/Globulin Ratio 0.9 (1.1-2.2); Alkaline Phosphatase 63 Units/L (38-126); Aspartate Amino Transferase 22 Units/L (5-34); BUN/Creatinine Ratio 31 (6-26); Bilirubin,Direct 0.3 mg/dL (0.0-0.5); Bilirubin,Indirect 0.4 mg/dL (0.0-1.2); Bilirubin,Total 0.7 mg/dL (0.2-1.2); Blood Urea Nitrogen 23 mg/dL (8-26); Calcium 8.1 mg/dL (8.6-10.8); Carbon Dioxide 30 mEq/L (19-29); Chloride 102 mEq/L (98-109); Globulin 3.1 g/dL (2.4-3.5); Glucose 139 mg/dL (70-99); Magnesium 1.8 mg/dL (1.6-2.6); Osmolality,Calculated 294 (280-300); Potassium 3.6 mEq/L (3.5-4.5); Sodium 139 mEq/L (136-145); Total Protein 5.8 g/dL (6.0-8.3); eGFR For African Americans > 60 (> 60); eGFR For Non-African Americans > 60 (> 60)
[2016-07-02] MEDS: Budesonide/Formoterol 80/4.5 MDI IH SCH (08:10)
--- NOTE | 2016-07-02 08:37 | Discharge Summary ---
<Ashley Pal - Last Filed: 07/02/16 11:01> Date of Encounter: 07/02/16 Time of Encounter: 08:30 - Discharge Diagnosis (1) Sepsis Priority: Primary Status: Acute Qualifiers: Sepsis type: sepsis due to unspecified organism Qualified Code(s): A41.9 - Sepsis, unspecified organism (2) Multifocal pneumonia Priority: Primary Status: Acute (3) Parainfluenza virus bronchitis Priority: Primary Status: Acute (4) HFrEF (heart failure with reduced ejection fraction) Priority: Primary Status: Acute Qualifiers: Heart failure chronicity: acute on chronic Qualified Code(s): I50.23 - Acute on chronic systolic (congestive) heart failure (5) Hypochloremic alkalosis Priority: Secondary Status: Acute (6) Renal cell adenoma of right kidney Priority: Secondary Status: Chronic - Discharge Medications Prescriptions: Acetaminophen [Tylenol] 500 mg PO Q6HR PRN #20 tablet PRN Reason: Mild Pain Aspirin Enteric Coated [Aspirin EC] 81 mg PO DAILY #30 tablet.dr Atorvastatin [Lipitor] 40 mg PO HS #30 tablet Lisinopril [Zestril] 2.5 mg PO DAILY #30 tablet Metoprolol XL (24 HR) Succ [Toprol Xl] 25 mg PO DAILY #30 tab.er.24h Nicotine Patch [Nicoderm] 7 mg TD DAILY #30 patch.td24 Oxycodone HCl [Oxaydo] 5 mg PO BID PRN #20 tablet.orl PRN Reason: Severe Pain PredniSONE 10 mg PO AD #30 tablet Home Medications: Fluticasone/Salmeterol [Advair 250-50 Diskus] 1 puff IH BID 01/07/16 [History] Ipratropium/Albuterol Neb [Duoneb] 3 ml IH TID 01/07/16 [History] Ondansetron HCl 4 mg PO Q8H PRN #60 tablet 02/07/16 [Rx] Albuterol Sulfate [Proair Hfa] 2 puff IH Q4H PRN #1 hfa.aer.ad 04/06/16 [Rx] Omeprazole [PriLOSEC] 20 mg PO DAILY PRN #45 cap 04/14/16 [Rx] Ipratropium/Albuterol Sulfate [Combivent Respimat Inhal [place]] 1 puff IH QID [History] Simethicone [Gas-X] 80 mg PO TID PRN 06/25/16 [History] Acetaminophen [Tylenol] 500 mg PO Q6HR PRN #20 tablet 07/02/16 [Rx] Aspirin Enteric Coated [Aspirin EC] 81 mg PO DAILY #30 tablet. 07/02/16 [Rx] Atorvastatin [Lipitor] 40 mg PO HS #30 tablet 07/02/16 [Rx] Lisinopril [Zestril] 2.5 mg PO DAILY #30 tablet 07/02/16 [Rx] Metoprolol XL (24 HR) Succ [Toprol Xl] 25 mg PO DAILY #30 tab.er.24h 07/02/16 [ Rx] Nicotine Patch [Nicoderm] 7 mg TD DAILY #30 patch.td24 07/02/16 [Rx] Oxycodone HCl [Oxaydo] 5 mg PO BID PRN #20 tablet.orl 07/02/16 [Rx] PredniSONE 10 mg PO AD #30 tablet 07/02/16 [Rx] Allergies/Adverse Reactions: Allergies No Known Allergies Allergy (Verified 12/10/15 15:06) Procedures/tests Complete & Pending: Procedures Performed prior 72 hours Category Date Time Status CL Cardiac Catheterization [CL] Routine Electronic Repair Troubleshooter 06/30/16 09:39 Completed Date of admission: 06/25/16 08:27 Primary care physician: Roberto Hensley CNP Consults: 06/29/16 12:03 Consult to Oncology Hematology [CONS] Routine Consulting Provider: Evelyn Che Reason for Consult: d/w BLAISE Renetta. Patient renal cell ca on Votrient. Cardiology notes Votrient can cause cardiomyopathy, would like opinion on whether to proceed with heart catheterization given the troponin elevation. Call Completed: Yes 07/01/16 13:10 Consult to Respiratory Therapy [CONS] Urgent Reason for Consult: Induced sputum collection. Multifocal pneumonia. Hypertonic saline ordered. Call Completed: No Discharging clinician: Celso Wren Anticipated date of discharge: 07/02/16 - Patient Status Disposition: Home, Self-Care Condition: Fair Functional capacity at discharge: independent ambulation Overall status at discharge: patient is progressing back to baseline - Discharge Instructions Instructions: Myocardial Infarction (DC), Heart Failure (DC), Acute Respiratory Distress Syndrome (DC), Sepsis (DC), Pneumonia (DC) Follow Up With: Roberto Hensley CNP [Primary Care Provider] - 07/07/16 10:30 am Evelyn Che MD [Partnered Physician] - (1-2 weeks, renal cell cancer.) - Diet and Activity Activity: increase activity as tolerated, wear oxygen at all times Diet: low fat, low cholesterol Hospital course: Mr. Abrams is a 60 year old male Patient would present to [place] with chief concern: dyspnea, accompanied by respiratory decompensation prompting admission to [facility] ICU. Comorbidities include: renal cell carcinoma on chemo followed by Dr. Che, ICM, COPD on 2.5 L NC Hospital course: Patient admitted to ICU. Initial workup suggested multifocal pneumonia, prompting broad-spectrum antibiotics and cultures drawn. BC x 2 negative, Sputum culture negative, Influenza A/B negative, UAT Strep and Legionella negative. Antibiotics were deescalated and patient would improve, transferred to medical floor on hospital day #4. Patient would undergo treatment with levaquin for total of 7 days, Rocephin for 4 days, Vancomycin for 5 days. 06/25/16 Echo obtained EF 25%, with severe hypokinesis of all mid-apical myocardial segments, consider takotsubo (stress-induced) cardiomyopathy vs ischemic cardiomyopathy. This was accompanied by troponin elevation. Cardiology consult regarding suspected ICM, with recommendation for C. Oncology consult regarding Pazopanib, whether to proceed with heart catheterization given the prior elevated troponin. Per oncology, decreased EF, which could be side effect from pazopanib therapy. Pazopanib to be held. Patient would agree to C: showed minimal CAD. EF improved at 45%. Continue bb and add low dose piter-inhibitor. Cardiology recommendation: Out pt f/u one week after discharge. Imaging studies disclosed: Chest CTA 06/25/16 03:04 IMPRESSION: 1. No evidence of pulmonary embolism or acute pulmonary abnormality. 2. New large area of consolidation replacing most of the right middle lobe. Additional scattered airspace and reticular opacities in the right upper, right lower and left lower lobes. Overall findings are suspicious for multifocal pneumonia. 3. Stable mediastinal hilar lymphadenopathy. 4. Partial visualization of a large right renal mass. 5. Reflux of contrast into the intrahepatic veins suggestive of right heart dysfunction. Chest X-Ray 07/01/16 13:00 IMPRESSION: Significant interval improvement of the right middle lobe consolidation. Trace pleural effusions. Patient would tolerate LHC well, no signs of hematoma at site. He would have interval intermittent tachycardia HR 100's, with elevated lactate to suggest possible sepsis. Given IVF judiciously in light of his reduced EF, with repeat sputum and blood cultures negative. Repeat 2-V CXR would reveal significant improvement of RML consolidation nearly resolved. Respiratory infectious panel would disclose + parainfluenza 3 virus per PCR. At this juncture, patient has completed an 8 day course of antibiotics. He has viral parainfluenza and can recover at home. Advised to do handwashing frequently and to don a respiratory mask at home. At time of discharge, patient was clinically improved, hemodynamically stable, progressing to baseline, and agreeable with plan of care. Patient was advised to seek immediate medical attention for any new or worsening symptoms including but not limited to fever, chills, chest pain, chest pressure, dyspnea, cough, abdominal pain, nausea, vomiting, diarrhea, bloody stool, urine and the patient voiced understanding. Patient will follow-up with primary care physician: Roberto Hensley M.D. Follow-up with Dr. Che. To have slow taper of prednisone, 40mg for 3 days, 30mg for 3 days, 20mg for 3 days, 10mg for 3 days, then stop. He was counseled on smoking cessation, to cont NRT. OARRS reviewed and appropriate. He has been on oxycodone 5mg PO BID prescribed by Dr. Che. Due to tumor burden he has significant pain which requires narcotic regimen to permit ADLs. I prescribed #20 for him until he can re-establish with Dr. Che. Time spent discussing smoking cessation with patient: more than 10 minutes - Time Spent with Patient Total time spent providing and/or coordinating discharge services: Greater than 30 minutes - Constitutional Vitals: Temp Pulse Resp BP Pulse Ox 98.0 F 96 15 100/59 94 07/02/16 07:25 07/02/16 07:25 07/02/16 07:25 07/02/16 07:25 07/02/16 07:25 General appearance: Present: A&O X 3, pleasant - Head Head exam: Present: atraumatic, normocephalic - Eye Eye exam: Present: EOMI, sclera anicteric - ENT ENT exam: Present: mucous membranes moist - Neck Neck exam general surgery: Present: supple, trachea midline - Respiratory Respiratory exam: Present: CTAB. Absent: accessory muscle use, rhonchi, wheezes Additional comments: on 2LNC - Cardiovascular Cardiovascular exam: Present: +S1, +S2. Absent: JVD - GI/Abdominal GI/Abdominal exam: Present: soft, no peritoneal signs. Absent: tenderness - Extremities Exam Extremities exam: Present: warm, radial pulses palpable and symetrical. Absent : pedal edema <Siena,Celso P - Last Filed: 07/02/16 18:28> Date of Encounter: 07/02/16 Procedures/tests Complete & Pending: Procedures Performed prior 72 hours Category Date Time Status CL Cardiac Catheterization [CL] Routine Electronic Repair Troubleshooter 06/30/16 09:39 Completed Date of admission: 06/25/16 08:27 Primary care physician: Roberto Hensley CNP Consults: 06/29/16 12:03 Consult to Oncology Hematology [CONS] Routine Consulting Provider: Evelyn Che Reason for Consult: d/w BLAISE Jakcson. Patient renal cell ca on Votrient. Cardiology notes Votrient can cause cardiomyopathy, would like opinion on whether to proceed with heart catheterization given the troponin elevation. Call Completed: Yes 07/01/16 13:10 Consult to Respiratory Therapy [CONS] Urgent Reason for Consult: Induced sputum collection. Multifocal pneumonia. Hypertonic saline ordered. Call Completed: No 07/02/16 10:14 Consult to State Assessed Properties Director [CONS] Routine Reason for SW Consult: Qualifies for home O2 Hospital course: Mr. Abrams is a 60 year old male - Time Spent with Patient Total time spent providing and/or coordinating discharge services: - Constitutional Vitals: Temp Pulse Resp BP Pulse Ox 98.0 F 81 16 99/63 95 07/02/16 11:23 07/02/16 11:23 07/02/16 11:23 07/02/16 11:23 07/02/16 11:23 - Attending Attestation I examined this patient and my medical decision-making was reviewed with the FOOD COUNTER WORKER/PA/Advanced Practice Nurse/Resident Physician. I agree with the documented findings, disposition and treatment plan as described except to the extent set forth below.
[2016-07-02] MEDS: Metoprolol XL (24 HR) Succ 25 MG TAB.ER.24H PO SCH (09:05)
[2016-07-02] MEDS: Aspirin Enteric Coated 81 MG Tablet PO SCH (09:05)
[2016-07-02] MEDS: Nicotine 7 MG PATCH.TD24 TD SCH (09:05)
[2016-07-02] MEDS: Fluticasone Propionate Nasal 50 MCG/SPRAY BOTTLE NS SCH (09:06)
[2016-07-02 11:27] VITALS: BP 99/63
[2016-07-02] MEDS ORDERED: Aminoglycoside Consult 1 EACH MC ONE (13:47)
[2016-07-03 08:23] LABS: Alpha 2 Globulin (PEP) 0.75 g/dL (0.48-1.05)
[2016-07-03 13:16] LABS: IFE Reflexed NOT DONE
== END 2016-07-02 13:48 | disposition home or self-care (01) | DRG 720 ==
LOC: 2NENU 01:44 → EMEROO 01:44 → 2NENU 05:58 → SUATTDRO 08:27 → ICNU 11:54 → 2NENU 06-27 16:18
PROVIDERS: ADMIT Hospitalist; ATTEND Internal Medicine

== ENCOUNTER 2016-09-02 10:39 | Inpatient (IN) ==
[~2016-09-02 10:39] MED LIST: Aminoglycoside Consult 1 EACH MC ONE
[2016-09-02] MEDS ORDERED: methylPREDNISolone 125 MG/2 ML VIAL IVP ONE (11:01)
[2016-09-02] MEDS ORDERED: Ipratropium/Albuterol Neb 3 ML IH ONE (11:01)
--- NOTE | 2016-09-02 11:09 | Emergency Department Note ---
Disposition Clinical Impression: Community acquired pneumonia, Lung mass Sepsis Qualifiers: Sepsis type: sepsis due to unspecified organism Qualified Code(s): A41.9 - Sepsis, unspecified organism Disposition: Admitted As Inpatient Condition: Fair Referrals: NO,PCP [Non-Partnered Physician] - Forms: ED Satisfaction Letter SOB HPI - General Chief Complaint: ED Shortness of Breath/Dyspnea Stated Complaint: Cancer pt poss infection Time Seen by Provider: 09/02/16 10:54 Source: patient Limitations: no limitations Nursing Notes Reviewed: Yes Vital Signs Reviewed: Yes - History of Present Illness Pt Subjective Complaint: shortness of breath, cough Onset (ago): day(s) (2) Severity: moderate Consistency/Duration: constant, gradually worsening Improves with: oxygen, bronchodilators Worsens with: exertion Known history of: COPD Associated symptoms: Reports: fever. Denies: chest pain, nausea/vomiting, syncope Treatment prior to arrival: bronchodilator Cough present: Yes Cough Description: Involuntary, Productive Cough Frequency: Intermittent Sputum production: Yes Sputum Amount: Small - Related Data Home Medications Medication Instructions Recorded Confirmed Fluticasone/Salmeterol [Advair 1 puff IH BID 01/07/16 09/02/16 250-50 Diskus] Ipratropium/Albuterol Neb [Duoneb] 3 ml IH TID 01/07/16 09/02/16 Ipratropium/Albuterol Sulfate 1 puff IH QID 06/25/16 09/02/16 [Combivent Respimat Inhal [place]] Simethicone [Gas-X] 80 mg PO TID PRN 06/25/16 09/02/16 Previous Rx's Medication Instructions Recorded Ondansetron HCl 4 mg PO Q8H PRN #60 tablet 02/07/16 Albuterol Sulfate [Proair Hfa] 2 puff IH Q4H PRN #1 hfa.aer.ad 04/06/16 Omeprazole [PriLOSEC] 20 mg PO DAILY PRN #45 cap 04/14/16 Acetaminophen [Tylenol] 500 mg PO Q6HR PRN #20 tablet 07/02/16 Aspirin Enteric Coated [Aspirin EC] 81 mg PO DAILY #30 tablet. 07/02/16 Atorvastatin [Lipitor] 40 mg PO HS #30 tablet 07/02/16 Lisinopril [Zestril] 2.5 mg PO DAILY #30 tablet 07/02/16 Metoprolol XL (24 HR) Succ [Toprol 25 mg PO DAILY #30 tab.er.24h 07/02/16 Xl] Nicotine Patch [Nicoderm] 7 mg TD DAILY #30 patch.td24 07/02/16 Budesonide/Formoterol 160/4.5 1 puff IH BID #1 inhaler 07/24/16 [Symbicort] ALPRAZolam [Xanax 0.25 MG Tablet] 0.25 mg PO TID PRN #90 tablet 08/18/16 OxyCODONE Immed Rel [Roxicodone 5 5 mg PO BID PRN #60 tablet 08/18/16 MG] Allergies Allergy/AdvReac Type Severity Reaction Status Date / Time No Known Allergies Allergy Verified 12/10/15 15:06 All systems ED: reviewed and negative except as stated. Constitutional: Reports: fever, chills, weakness Respiratory: Reports: cough, dyspnea Past Medical History - Past Medical History Source: patient, old records reviewed, nursing notes reviewed Medical history: Reports: cancer, COPD, GERD Surgical history: Reports: no surgical history Psychiatric history: Reports: no psych history - Social History Smoking Status: Current some day smoker Smokeless Tobacco Status: No Alcohol use: Reports: none Drug use: Reports: none Physical Exam - General Limitations: no limitations General appearance: alert, in no apparent distress - Head Head exam: atraumatic, normocephalic, normal inspection - Eye Eye exam: Present: normal appearance, PERRL, EOMI - Expanded Eye Exam Pupils: Left: reactive - ENT ENT exam: normal exam, normal oropharynx, mucous membranes moist - Expanded ENT Exam External ear exam: Present: normal external inspection Mouth exam: Present: normal external inspection Teeth exam: Present: normal inspection Throat exam: Present: normal inspection - Neck Neck exam: Present: normal inspection, full ROM, trachea midline - Chest Chest inspection: Present: normal inspection, symmetric chest wall rise - Respiratory Respiratory exam: Present: respiratory distress (mild, tachypneic, speaks in short sentanced, ), accessory muscle use, prolonged expiratory phase - Cardiovascular Cardiovascular exam: Present: tachycardia - Abdominal Exam Abdominal exam: Present: soft, Non-Tender. Absent: tenderness, distention, guarding, rebound, rigidity - Extremities Exam Extremities exam: Present: normal inspection, full ROM. Absent: tenderness, pedal edema - Expanded Upper Extremity Exam Shoulder exam: Present: normal inspection, full ROM Arm exam: Present: normal inspection, full ROM Elbow exam: Present: normal inspection, full ROM Forearm/Wrist exam: Present: normal inspection, full ROM Hand exam: Present: normal inspection, full ROM Vascular exam: Normal: capillary refill, radial pulse - Expanded Lower Extremity Exam Hip/Pelvis exam: Present: normal inspection, full ROM Upper leg exam: Present: normal inspection, full ROM Knee exam: Present: normal inspection, full ROM Lower leg exam: Present: normal inspection, full ROM Ankle exam: Present: normal inspection, full ROM Foot/toe exam: Present: normal inspection, full ROM Neurovascular/Tendon exam: Absent: motor deficit, sensory deficit, tendon deficit - Back Exam Back exam: Present: normal inspection, full ROM. Absent: tenderness - Neurological Exam Neurological exam: Present: alert, oriented X3 - Expanded Neurological Exam Patient oriented to: Present: person, place, time Coma Scale Eye Opening: Spontaneous Coma Scale Motor Response: Obeys Commands Coma Scale Verbal Response: Oriented Coma Scale Total: 15 - Psychiatric Psychiatric exam: Present: normal affect, normal mood - Skin Skin exam: Present: warm, dry, intact, normal color Course Vital Signs Temperature 98.2 F 09/02/16 10:41 Pulse Rate 136 09/02/16 10:41 Respiratory Rate 16 09/02/16 10:41 Blood Pressure 97/52 09/02/16 10:41 O2 Sat by Pulse Oximetry 95 09/02/16 10:41 Temperature 98.2 F 09/02/16 10:41 Pulse Rate 118 09/02/16 12:43 Respiratory Rate 20 09/02/16 11:14 Blood Pressure 102/70 09/02/16 12:43 O2 Sat by Pulse Oximetry 96 09/02/16 11:14 Oxygen Delivery Oxygen Delivery Nasal Cannula Shortness of Breath/Dyspnea - Differential Diagnosis Likely: acute exacerbation of chronic obstructive airways disease, congestive heart failure, pneumonia, asthma with exacerbation, pulmonary embolism, pneumothorax, arrhythmia - Medical Records Medical records reviewed: Yes I reviewed the patient's medical records. - Lab Data Lab results reviewed: Yes I reviewed the patient's lab results. Result diagrams: 09/02/16 11:20 09/02/16 11:20 Lab Results 09/02/16 09/02/16 09/02/16 Range/Units 11:20 11:20 11:20 WBC 12.2 H D (4.3-11.1) K/mcL RBC 4.16 L (4.19-5.50) M/mcL Hgb 12.1 L (12.9-16.9) g/dL Hct 37.1 L (37.5-50.1) % MCV 89.2 (83.0-100.0) fL MCH 29.1 (28.0-33.3) pg MCHC 32.6 (31.6-35.5) g/dL RDW 13.9 (11.5-14.5) % Plt Count 345 (140-400) K/mcL MPV 8.7 L (9.4-12.4) fL Immature Gran % 0.5 (0-4) % Seg Neutrophils % 81.4 % Lymphocytes % 7.4 % Monocytes % 10.3 % Eosinophils % 0.2 % Basophils % 0.2 % Neutrophils # 9.9 H (1.6-8.9) K/mcL Lymphocytes # 0.9 (0.6-4.6) K/mcL Monocytes # 1.3 (0.0-1.3) K/mcL Eosinophils # 0.0 (0.0-0.6) K/mcL Basophils # 0.0 (0.0-0.2) K/mcL PT 15.9 H (9.4-12.1) Seconds INR 1.5 APTT 32.5 (26.0-36.0) Seconds D-Dimer 1135 H (0-500) ng/mLFEU Sodium 133 L (136-145) mEq/L Potassium 4.2 (3.5-4.5) mEq/L Chloride 96 L (98-109) mEq/L Carbon Dioxide 26 (19-29) mEq/L BUN 13 (8-26) mg/dL Creatinine 0.76 (0.72-1.25) mg/dL Est GFR ( Amer) > 60 (> 60) Est GFR (Non-Af Amer) > 60 (> 60) BUN/Creatinine Ratio 17 (6-26) Glucose 114 H (70-99) mg/dL Calculated Osmolality 277 L (280-300) Lactic Acid (0.5-2.2) mmol/L Calcium 9.7 (8.6-10.8) mg/dL Troponin I (0-0.03) ng/mL B-Natriuretic Peptide (0-100) pg/mL 09/02/16 09/02/16 09/02/16 Range/Units 11:20 11:20 11:20 WBC (4.3-11.1) K/mcL RBC (4.19-5.50) M/mcL Hgb (12.9-16.9) g/dL Hct (37.5-50.1) % MCV (83.0-100.0) fL MCH (28.0-33.3) pg MCHC (31.6-35.5) g/dL RDW (11.5-14.5) % Plt Count (140-400) K/mcL MPV (9.4-12.4) fL Immature Gran % (0-4) % Seg Neutrophils % % Lymphocytes % % Monocytes % % Eosinophils % % Basophils % % Neutrophils # (1.6-8.9) K/mcL Lymphocytes # (0.6-4.6) K/mcL Monocytes # (0.0-1.3) K/mcL Eosinophils # (0.0-0.6) K/mcL Basophils # (0.0-0.2) K/mcL PT (9.4-12.1) Seconds INR APTT (26.0-36.0) Seconds D-Dimer (0-500) ng/mLFEU Sodium (136-145) mEq/L Potassium (3.5-4.5) mEq/L Chloride (98-109) mEq/L Carbon Dioxide (19-29) mEq/L BUN (8-26) mg/dL Creatinine (0.72-1.25) mg/dL Est GFR ( Amer) (> 60) Est GFR (Non-Af Amer) (> 60) BUN/Creatinine Ratio (6-26) Glucose (70-99) mg/dL Calculated Osmolality (280-300) Lactic Acid 1.5 (0.5-2.2) mmol/L Calcium (8.6-10.8) mg/dL Troponin I 0.01 (0-0.03) ng/mL B-Natriuretic Peptide 82 (0-100) pg/mL - Radiology Data Radiology results reviewed: Yes I reviewed the patient's radiology results. - EKG Data EKG attestation: Yes I reviewed and interpreted this EKG. EKG shows normal: Reports: sinus rhythm Rate: Reports: tachycardia (130) Rhythm: Reports: NSR [place]/QRS: Reports: right axis deviation Interpretation: Reports: nonspecific ST-T wave changes Critical Care Time Critical Care Time: Yes Total Critical Care Time: 35 Attestation: Critical care performed: Time is exclusive of separately billable procedures. Time includes: direct patient care, patient reassessment, coordination of patient care, interpretation of data (laboratory data, radiology data, and respiratory data), review of patient's medical records, medical consultation and documentation of patient care. Procedures included in critical care time: Procedures excluded from critical care time:
[2016-09-02 11:30] LABS: Basophils % 0.2 %; Eosinophils % 0.2 %; Hematocrit 37.1 % (37.5-50.1); Hemoglobin 12.1 g/dL (12.9-16.9); Immature Granulocytes % 0.5 % (0-4); Lymphocytes # 0.9 K/mcL (0.6-4.6); Lymphocytes % 7.4 %; Mean Corpuscular HGB Conc 32.6 g/dL (31.6-35.5); Mean Corpuscular Hemoglobin 29.1 pg (28.0-33.3); Mean Corpuscular Volume 89.2 fL (83.0-100.0); Mean Platelet Volume 8.7 fL (9.4-12.4); Monocytes # 1.3 K/mcL (0.0-1.3); Monocytes % 10.3 %; Neutrophils # 9.9 K/mcL (1.6-8.9); Platelet Count 345 K/mcL (140-400); Red Blood Count 4.16 M/mcL (4.19-5.50); Red Cell Distribution Width 13.9 % (11.5-14.5); Segmented Neutrophils % 81.4 %
[2016-09-02 11:41] LABS: BUN/Creatinine Ratio 17 (6-26); Blood Urea Nitrogen 13 mg/dL (8-26); Calcium 9.7 mg/dL (8.6-10.8); Carbon Dioxide 26 mEq/L (19-29); Chloride 96 mEq/L (98-109); Glucose 114 mg/dL (70-99); Osmolality,Calculated 277 (280-300); Potassium 4.2 mEq/L (3.5-4.5); Sodium 133 mEq/L (136-145); eGFR For African Americans > 60 (> 60); eGFR For Non-African Americans > 60 (> 60)
[2016-09-02 11:42] LABS: Activated Partial Thrombo Time 32.5 Seconds (26.0-36.0); INR 1.5; Prothrombin Time 15.9 Seconds (9.4-12.1)
[2016-09-02] MEDS ORDERED: Levofloxacin 750 MG/150 ML 750 MG/150 ML BAG IVPB ONE (12:43)
[2016-09-02] MEDS ORDERED: Ondansetron 4 MG/2 ML VIAL IVP ONE (12:46)
[2016-09-02] MEDS ORDERED: Acetaminophen 325 MG TABLET PO PRN (14:15)
[2016-09-02] MEDS ORDERED: Naloxone 0.4 MG/ML INJ IVP PRN (14:15)
[2016-09-02] MEDS ORDERED: *HR* Morphine 2 MG/ML SYRINGE IVP PRN (14:15)
[2016-09-02] MEDS ORDERED: 0.9 % Sodium Chloride 1,000 ML IVC SCH (14:15)
[2016-09-02] MEDS ORDERED: Ondansetron 4 MG/2 ML VIAL IVP PRN (14:15)
[2016-09-02] MEDS ORDERED: *HR* HYDROcodone/Acet 5/325 mg TABLET PO PRN (14:15)
[2016-09-02] MEDS ORDERED: Simethicone 80 MG TAB.CHEW PO PRN (14:19)
[2016-09-02] MEDS ORDERED: ALPRAZolam 0.25 MG TABLET PO PRN (14:19)
--- NOTE | 2016-09-02 14:25 | Internal Med History&Physical ---
Date of Encounter: 09/02/16 Time of Encounter: 14:24 Assessment and Plan (1) Sepsis Current visit: Yes Status: Acute Patient meets sepsis criteria with tachycardia, leukocytosis and a R post- obstructive pneumonia Patient is afebrile lactate and renal function is normal Recent admission for 10 days in 06/2016, needs treatment for HCAP Send sputum culture and resp panel Continue Vanco , Cefepime and Levaquin Monitor closely Patient is full code Qualifiers: Sepsis type: sepsis due to unspecified organism Qualified Code(s): A41.9 - Sepsis, unspecified organism (2) HCAP (healthcare-associated pneumonia) Current visit: Yes Status: Acute As above Oxygen by nasal cannula prn, (3) Lung cancer Current visit: Yes Status: Chronic R hilar Lung CA Consults to Oncology and Pulmonology Qualifiers: Laterality: right Lung location: hilum of lung Qualified Code(s): C34.01 - Malignant neoplasm of right main bronchus (4) HFrEF (heart failure with reduced ejection fraction) Current visit: Yes Status: Chronic Clinically euvolemic No pedal edema, no JVD, no S3 gallop Continue home BB, ACEI, ASA, Lipitor Qualifiers: Heart failure chronicity: chronic Qualified Code(s): I50.22 - Chronic systolic (congestive) heart failure (5) Renal cell carcinoma of right kidney Current visit: Yes Status: Chronic Chronic, Oncology routinely consulted, may follow up with Oncology as outpatient (6) Anxiety Current visit: Yes Status: Chronic Resume home meds (7) Tobacco abuse Current visit: Yes Status: Chronic NRT, continue same Internal Medicine - H&P: HPI Chief complaint: Shortness of breath Admitted From: Home Plans for Post Hospital Care: Home History of present illness: Mr. Abrams is a 61 year old male with Lung CA on chemoradiation, R renal cell carcinoma, s/p chemo, CHFrEF, HTN, Anxiety who presented with worsening cough and shortness of breath Patient reports he started chemoradiation on Friday 09/01, and since then he has been having worsening cough, productive of yellowish sputum as well as shortness of breath at rest and minimal exertion He denies fever or chills, recent travels or sick contact Denies chest pain , palpitations, dizziness, no neurologic complains He was tachycardic and dyspneic, hence was referred to ER from radiology On presentation, he was afebrile but tachycardic and dyspneic Work up in ER revealed leukocytosis with left shift, mild hyponatremia, pseudo from hyperglycemia, Chest CTA revealed no PE, R hilar mass with post- obstructive pneumonia, R renal mass. He is extremely anxious at time of review Other ROS is unremarkable Past Med Surg Social Fam HX - Past Medical History Medical history: cancer, CHF, COPD, GERD, malignancy, renal disease Psychiatric history: no psych history - Past Surgical History Surgical History: no surgical history - Social History Smoking Status: Current some day smoker Smokeless Tobacco Status: No Alcohol use: none Drug use: none - Family History Father Hx Family Cancer: Yes (esophageal cancer) Mother Hx Family Cancer: Yes (pancreatic) Internal Medicine - H&P: Meds Fluticasone/Salmeterol [Advair 250-50 Diskus] 1 puff IH BID 01/07/16 [History] Ipratropium/Albuterol Neb [Duoneb] 3 ml IH TID 01/07/16 [History] Ondansetron HCl 4 mg PO Q8H PRN #60 tablet 02/07/16 [Rx] Albuterol Sulfate [Proair Hfa] 2 puff IH Q4H PRN #1 hfa.aer.ad 04/06/16 [Rx] Omeprazole [PriLOSEC] 20 mg PO DAILY PRN #45 cap 04/14/16 [Rx] Ipratropium/Albuterol Sulfate [Combivent Respimat Inhal [place]] 1 puff IH QID [History] Simethicone [Gas-X] 80 mg PO TID PRN 06/25/16 [History] Acetaminophen [Tylenol] 500 mg PO Q6HR PRN #20 tablet 07/02/16 [Rx] Aspirin Enteric Coated [Aspirin EC] 81 mg PO DAILY #30 tablet.dr 07/02/16 [Rx] Atorvastatin [Lipitor] 40 mg PO HS #30 tablet 07/02/16 [Rx] Lisinopril [Zestril] 2.5 mg PO DAILY #30 tablet 07/02/16 [Rx] Metoprolol XL (24 HR) Succ [Toprol Xl] 25 mg PO DAILY #30 tab.er.24h 07/02/16 [ Rx] Nicotine Patch [Nicoderm] 7 mg TD DAILY #30 patch.td24 07/02/16 [Rx] Budesonide/Formoterol 160/4.5 [Symbicort] 1 puff IH BID #1 inhaler 07/24/16 [Rx] ALPRAZolam [Xanax 0.25 MG Tablet] 0.25 mg PO TID PRN #90 tablet 08/18/16 [Rx] OxyCODONE Immed Rel [Roxicodone 5 MG] 5 mg PO BID PRN #60 tablet 08/18/16 [Rx] Allergies No Known Allergies Allergy (Verified 12/10/15 15:06) All Systems PM: A 10-system review of systems was performed and is negative for pertinent findings except as documented above in the HPI. - Constitutional Constitutional: no chills, no fever(s), no night sweats - EENT Eyes: no change in vision, no discharge, no pain, no photophobia Ears: no ear discharge, no ear pain, no tinnitus Nose, mouth and throat: no dysphagia, no nasal discharge, no neck pain, no sore throat - Cardiovascular Cardiovascular ROS IM: as per HPI - Respiratory Respiratory: as per HPI - Gastrointestinal Gastrointestinal: as per HPI - Musculoskeletal Musculoskeletal ROS IM: no numbness, no tingling - Integumentary Integumentary IM: no rash, no unusual bruising - Neurological Neurological ROS: no confusion, no convulsions, no focal weakness, no numbness, no tingling, no tremor(s) - Psychiatric Psychiatric: anxiety - Endocrine Endocrine IM: fatigue - Hematologic/Lymphatic Hematologic/Lymphatic: no easy bruising - Constitutional Vitals: Temp Pulse Resp BP Pulse Ox 98.2 F 116 20 106/73 94 09/02/16 10:41 09/02/16 14:20 09/02/16 14:20 09/02/16 14:20 09/02/16 14:20 General appearance: Present: cachectic, mild distress, A&O X 3, pleasant - Head Head exam: Present: atraumatic, normocephalic - Eye Eye exam: Present: PERRL, conjuntiva pink, sclera anicteric. Absent: scleral icterus - ENT ENT exam: Present: mucous membranes dry - Neck Neck exam general surgery: Present: normal inspection - Respiratory Respiratory exam: Present: CTAB (Diminshed air entry on R mid and lower lung zones, no rales or rhonchi, no wheezing) - Cardiovascular Cardiovascular exam: Present: RRR, +S1, +S2. Absent: diastolic murmur, gallop, JVD, rubs, systolic murmur - GI/Abdominal GI/Abdominal exam: Present: normal bowel sounds, soft, no peritoneal signs. Absent: distended, tenderness - Extremities Exam Extremities exam: Present: warm, radial pulses palpable and symetrical. Absent : calf tenderness, cyanotic, pedal edema - Neurological Exam Neurological exam: Present: alert, CN II-XII intact, oriented X3, no focal deficits. Absent: pronater drift, facial droop, speech deficit - Skin Skin exam: Present: dry, intact Internal Med - H&P Results - Labs CBC & Chem 7: 09/02/16 11:20 09/02/16 11:20
[2016-09-02] MEDS ORDERED: Vancomycin 750 MG in D5% in Water 250 ML IVPB SCH (15:00)
[2016-09-02] MEDS ORDERED: Vancomycin 1,250 MG in D5% in Water 250 ML IVPB ONE (15:30)
[2016-09-02] MEDS: Cefepime HCl 1,000 MG in D5% in Water (Mini-Bag+) 100 ML IVPB SCH ×2 (15:53→23:46)
--- NOTE | 2016-09-02 16:37 | Pulmonology Consult Note ---
Date of Encounter: 09/02/16 Time of Encounter: 16:23 Assessment and Plan (1) Dyspnea Current Visit: No Status: Acute I suspect the patient's worsening dyspnea is due in large part to the progression of his metastatic renal cell carcinoma to the lung. He is also significantly deconditioned due to his poor functional status. Underlying COPD may also be contributing. Qualifiers: Dyspnea type: unspecified Qualified Code(s): R06.00 - Dyspnea, unspecified (2) Abnormal CT scan, chest Current Visit: Yes Status: Acute Patient has had significant progression of his mediastinal and hilar masses. There is an area of atelectasis versus infiltrate in the right middle lobe, which appears to be secondary to extrinsic compression of the right middle lobe. Significant narrowing of the right-sided airways noted, but the narrowing does not appear to be in areas amenable to endobronchial stenting. The patient has fairly minimal infectious symptoms. He is currently being treated for a postobstructive pneumonia. Agree with sputum cultures. I have added on an MRSA nasal probe, and if this is negative we can discontinue vancomycin. If all culture data remains negative, I would recommend treating him for a total 8 day course of antibiotics, and Augmentin would be a reasonable by mouth choice at the time of discharge. I feel that bronchoscopy would be low yield, and the patient is not interested in this. (3) Renal cell carcinoma of right kidney Current Visit: Yes Status: Chronic The patient recently started a new chemotherapy regimen as well as radiation to the chest. Hopefully, he responds to these new modalities and shrinking of the lung tumors will improve his respiratory status. Otherwise, his options appear limited. Oncology has been consult for further evaluation and management. Pulmonary will continue to follow. (4) COPD (chronic obstructive pulmonary disease) Current Visit: Yes Status: Acute By history. The patient does not appear to be in acute exacerbation. He states that typically prednisone does not make him feel better and results in insomnia and jitteriness. Continue bronchodilators. I recommend adding Spiriva to his home regimen in order to optimize his care. Qualifiers: COPD type: unspecified COPD Qualified Code(s): J44.9 - Chronic obstructive pulmonary disease, unspecified History of Present Illness Consult date: 09/02/16 Requesting physician: Malik Carroll Reason for consult: abnormal CXR/CT Chief complaint: dyspnea History of present illness: 61-year-old male with a medical history significant for COPD and renal cell carcinoma metastatic to the lung. The patient presented to the emergency department for further evaluation for progressive dyspnea. Overall, the patient reports chronic dyspnea has been present for months. Patient states that he has very poor functional capacity cannot walk across the room without getting significantly short of breath. He also has a chronic cough which is productive of white sputum, and there has been little to no change in the character or volume of his sputum as of late. No fevers or chills. He has night sweats on and off and this is been present for months. He denies hemoptysis. Patient states that he is on Symbicort, when necessary albuterol, and when necessary DuoNeb's. Typically, when his breathing is worse he will get some improvement with DuoNeb's. However, this has not been helpful as of late. Past Med Surg Social Fam HX - Past Medical History Medical history: cancer, CHF, COPD, GERD, malignancy, renal disease Psychiatric history: no psych history - Past Surgical History Surgical History: no surgical history - Social History Smoking Status: Current some day smoker Packs per day: 0.5 Smokeless Tobacco Status: No Alcohol use: none Drug use: none - Family History Father Living Status: Hx Family Cancer: Yes (esophageal cancer) Mother Living Status: Hx Family Cancer: Yes (pancreatic) Medications and Allergies Fluticasone/Salmeterol [Advair 250-50 Diskus] 1 puff IH BID 01/07/16 [History] Ipratropium/Albuterol Neb [Duoneb] 3 ml IH TID 01/07/16 [History] Ondansetron HCl 4 mg PO Q8H PRN #60 tablet 02/07/16 [Rx] Albuterol Sulfate [Proair Hfa] 2 puff IH Q4H PRN #1 hfa.aer.ad 04/06/16 [Rx] Omeprazole [PriLOSEC] 20 mg PO DAILY PRN #45 cap 04/14/16 [Rx] Ipratropium/Albuterol Sulfate [Combivent Respimat Inhal [place]] 1 puff IH QID [History] Simethicone [Gas-X] 80 mg PO TID PRN 06/25/16 [History] Acetaminophen [Tylenol] 500 mg PO Q6HR PRN #20 tablet 07/02/16 [Rx] Aspirin Enteric Coated [Aspirin EC] 81 mg PO DAILY #30 tablet. 07/02/16 [Rx] Atorvastatin [Lipitor] 40 mg PO HS #30 tablet 07/02/16 [Rx] Lisinopril [Zestril] 2.5 mg PO DAILY #30 tablet 07/02/16 [Rx] Metoprolol XL (24 HR) Succ [Toprol Xl] 25 mg PO DAILY #30 tab.er.24h 07/02/16 [ Rx] Nicotine Patch [Nicoderm] 7 mg TD DAILY #30 patch.td24 07/02/16 [Rx] Budesonide/Formoterol 160/4.5 [Symbicort] 1 puff IH BID #1 inhaler 07/24/16 [Rx] ALPRAZolam [Xanax 0.25 MG Tablet] 0.25 mg PO TID PRN #90 tablet 08/18/16 [Rx] OxyCODONE Immed Rel [Roxicodone 5 MG] 5 mg PO BID PRN #60 tablet 08/18/16 [Rx] Allergies No Known Allergies Allergy (Verified 12/10/15 15:06) All Systems: A 10-system review of systems was performed and is negative for pertinent findings except as documented above in the HPI. Physical Examination Vital Signs: Vital signs reviewed General: Chronically ill-appearing and cachectic male who is in no acute distress Eyes: nonicteric ENT: oropharynx moist, poor dentition noted Neck: supple, no lymphadenopathy Lungs: Clear to auscultation bilaterally Cardiovascular: regular rate and rhythm Gastrointestinal: normoactive bowel sounds, soft, non-tender, non-distended Integumentary: normal Extremities: no cyanosis, no edema Musculoskeletal: no deformities Neuro: normal mental status, non-focal exam Psych: mood appropriate, affect normal Results - Laboratory Findings CBC and BMP: 09/02/16 11:20 09/02/16 11:20 PT/INR, D-dimer PT 15.9 Seconds (9.4-12.1) H 09/02/16 11:20 D-Dimer 1135 ng/mLFEU (0-500) H 09/02/16 11:20 Abnormal lab findings: Abnormal lab results WBC 12.2 K/mcL (4.3-11.1) H D 09/02/16 11:20 RBC 4.16 M/mcL (4.19-5.50) L 09/02/16 11:20 Hgb 12.1 g/dL (12.9-16.9) L 09/02/16 11:20 Hct 37.1 % (37.5-50.1) L 09/02/16 11:20 MPV 8.7 fL (9.4-12.4) L 09/02/16 11:20 Neutrophils # 9.9 K/mcL (1.6-8.9) H 09/02/16 11:20 PT 15.9 Seconds (9.4-12.1) H 09/02/16 11:20 D-Dimer 1135 ng/mLFEU (0-500) H 09/02/16 11:20 Sodium 133 mEq/L (136-145) L 09/02/16 11:20 Chloride 96 mEq/L (98-109) L 09/02/16 11:20 Glucose 114 mg/dL (70-99) H 09/02/16 11:20 Calculated Osmolality 277 (280-300) L 09/02/16 11:20 Consult Discharge Plan - Plan Referrals: Roberto Hensley CNP [Primary Care Provider] -
[2016-09-02] MEDS ORDERED: NON-FORMULARY MEDICATION 1 EACH EACH (Fluticasone/Salmeterol [Advair 250-50 Diskus] 1 PUFF IH SCH (21:00)
[2016-09-02 22:08] LABS: Adenovirus Not Detected (Not Detect); Bordetella Pertussis Not Detected (Not Detect); Chlamydophila pneumoniae Not Detected (Not Detect); Coronavirus 229E Not Detected (Not Detect); Coronavirus HKU1 Not Detected (Not Detect); Coronavirus NL63 Not Detected (Not Detect); Coronavirus OC43 Not Detected (Not Detect); Human Metapneumovirus Not Detected (Not Detect); Human Rhinovirus/Enterovirus Not Detected (Not Detect); Influenza A Subtype 2009 H1 Not Detected (Not Detect); Influenza A Untypeable Not Detected (Not Detect); Influenza B Not Detected (Not Detect); Mycoplasma pneumoniae Not Detected (Not Detect); Parainfluenza Virus 1 Not Detected (Not Detect); Parainfluenza Virus 2 Not Detected (Not Detect); Parainfluenza Virus 3 Not Detected (Not Detect); Parainfluenza Virus 4 Not Detected (Not Detect); Respiratory Syncytial Virus Not Detected (Not Detect)
[2016-09-02] MEDS: Budesonide/Formoterol 160/4.5 MDI IH SCH (22:40)
[2016-09-03] MEDS ORDERED: Vancomycin 1,000 MG in D5% in Water 250 ML IVPB SCH (03:30)
[2016-09-03 04:20] LABS: Basophils % 0.1 %; Hematocrit 33.6 % (37.5-50.1); Immature Granulocytes % 0.5 % (0-4); Lymphocytes # 0.4 K/mcL (0.6-4.6); Lymphocytes % 3.6 %; Mean Corpuscular HGB Conc 32.7 g/dL (31.6-35.5); Mean Corpuscular Hemoglobin 29.3 pg (28.0-33.3); Mean Corpuscular Volume 89.6 fL (83.0-100.0); Mean Platelet Volume 9.1 fL (9.4-12.4); Monocytes # 0.6 K/mcL (0.0-1.3); Monocytes % 5.2 %; Platelet Count 324 K/mcL (140-400); Red Blood Count 3.75 M/mcL (4.19-5.50); Red Cell Distribution Width 13.7 % (11.5-14.5); Segmented Neutrophils % 90.6 %
[2016-09-03 04:31] LABS: BUN/Creatinine Ratio 17 (6-26); Blood Urea Nitrogen 13 mg/dL (8-26); Calcium 9.2 mg/dL (8.6-10.8); Carbon Dioxide 29 mEq/L (19-29); Chloride 98 mEq/L (98-109); Glucose 187 mg/dL (70-99); Osmolality,Calculated 283 (280-300); Potassium 4.8 mEq/L (3.5-4.5); Sodium 134 mEq/L (136-145); eGFR For African Americans > 60 (> 60); eGFR For Non-African Americans > 60 (> 60)
[2016-09-03] MEDS: *HR* Enoxaparin 40 MG/0.4 ML SYRINGE SQ SCH (05:26)
[2016-09-03] MEDS: Budesonide/Formoterol 160/4.5 MDI IH SCH ×2 (07:58→20:12)
[2016-09-03] MEDS: Nicotine 7 MG PATCH.TD24 TD SCH (09:30)
[2016-09-03] MEDS: Cefepime HCl 1,000 MG in D5% in Water (Mini-Bag+) 100 ML IVPB SCH ×3 (09:31→23:33)
[2016-09-03] MEDS: Metoprolol XL (24 HR) Succ 25 MG TAB.ER.24H PO SCH (09:31)
[2016-09-03] MEDS: Aspirin Enteric Coated 81 MG Tablet PO SCH (09:31)
--- NOTE | 2016-09-03 09:44 | Rad Onc Dictation ---
Radiation Oncology Dictation Date of Service: 09/02/16 - Progress Note Comments: Patient seen in the office after 400 cGy of radiotherapy to the chest and immunotherapy. Patient's pulmonary symptoms out of proportion with radiotherapy acute toxicity. I will send to the emergency room.
--- NOTE | 2016-09-03 09:55 | Pulmonology Progress Note ---
Date of Encounter: 09/03/16 Time of Encounter: 09:53 Assessment and Plan (1) Abnormal CT scan, chest Current Visit: Yes Status: Acute Patient has had significant progression of his mediastinal and hilar masses. There is an area of atelectasis versus infiltrate in the right middle lobe, which appears to be secondary to extrinsic compression of the right middle lobe. The atelectatic changes do not appear to be consistent with radiation pneumonitis. Significant narrowing of the right-sided airways noted, but the narrowing does not appear to be in areas amenable to endobronchial stenting. The patient has fairly minimal infectious symptoms. He is currently being treated for a postobstructive pneumonia. Agree with sputum cultures. MRSA nasal probe was negative, and I have discontinued vancomycin. Monotherapy with cefepime is reasonable, so I have discontinued levofloxacin as well. If all culture data remains negative, I would recommend treating him for a total 8 day course of antibiotics, and Augmentin would be a reasonable by mouth choice at the time of discharge. I feel that bronchoscopy would be low yield, and the patient is not interested in this. I will arrange for outpatient pulmonary follow-up with Dr. Rahman. If the patient does not respond to therapy and his hilar/mediastinal metastatic disease were to progress, he may eventually require an endobronchial stent. (2) Dyspnea Current Visit: No Status: Acute I suspect the patient's worsening dyspnea is due in large part to the progression of his metastatic renal cell carcinoma to the lung. He is also significantly deconditioned due to his poor functional status. Underlying COPD may also be contributing. Overall, the patient reports improvement since admission. Qualifiers: Dyspnea type: unspecified Qualified Code(s): R06.00 - Dyspnea, unspecified (3) Renal cell carcinoma of right kidney Current Visit: Yes Status: Chronic The patient recently started a new chemotherapy regimen as well as radiation to the chest. Hopefully, he responds to these new modalities and shrinking of the lung tumors will improve his respiratory status. Otherwise, his options appear limited. Oncology has been consult for further evaluation and management. (4) COPD (chronic obstructive pulmonary disease) Current Visit: Yes Status: Acute By history. The patient does not appear to be in acute exacerbation. He states that typically prednisone does not make him feel better and results in insomnia and jitteriness. Continue bronchodilators. I recommend adding Spiriva to his home regimen in order to optimize his care. No further recommendations from a pulmonary standpoint. We will sign off. Qualifiers: COPD type: unspecified COPD Qualified Code(s): J44.9 - Chronic obstructive pulmonary disease, unspecified Subjective Principal diagnosis: Abnormal CT scan of chest Interval history: Patient reports feeling significantly better today. However, he has been fairly immobile in bed. He continues to cough and produces white sputum. No fever/chills noted. All other systems reviewed and otherwise negative. Objective PUL Vital signs: Last Vital Signs Temp 97.7 F 09/03/16 07:46 Pulse 102 09/03/16 07:46 Resp 16 09/03/16 07:59 BP 108/66 09/03/16 07:46 Pulse Ox 93 09/03/16 07:59 General: Chronically ill-appearing and cachectic male who is in no acute distress Eyes: nonicteric ENT: oropharynx moist, poor dentition noted Neck: supple, no lymphadenopathy Lungs: Clear to auscultation bilaterally Cardiovascular: regular rate and rhythm Gastrointestinal: normoactive bowel sounds, soft, non-tender, non-distended Integumentary: normal Extremities: no cyanosis, no edema Musculoskeletal: no deformities Neuro: normal mental status, non-focal exam Psych: mood appropriate, affect normal Results - Laboratory Findings CBC and BMP: 09/03/16 03:25 09/03/16 03:25 PT/INR, D-dimer PT 15.9 Seconds (9.4-12.1) H 09/02/16 11:20 D-Dimer 1135 ng/mLFEU (0-500) H 09/02/16 11:20 Abnormal lab findings: Abnormal lab results WBC 12.2 K/mcL (4.3-11.1) H 09/03/16 03:25 RBC 3.75 M/mcL (4.19-5.50) L 09/03/16 03:25 Hgb 11.0 g/dL (12.9-16.9) L 09/03/16 03:25 Hct 33.6 % (37.5-50.1) L 09/03/16 03:25 MPV 9.1 fL (9.4-12.4) L 09/03/16 03:25 Neutrophils # 11.0 K/mcL (1.6-8.9) H 09/03/16 03:25 Lymphocytes # 0.4 K/mcL (0.6-4.6) L 09/03/16 03:25 PT 15.9 Seconds (9.4-12.1) H 09/02/16 11:20 D-Dimer 1135 ng/mLFEU (0-500) H 09/02/16 11:20 Sodium 134 mEq/L (136-145) L 09/03/16 03:25 Potassium 4.8 mEq/L (3.5-4.5) H 09/03/16 03:25 Glucose 187 mg/dL (70-99) H 09/03/16 03:25 POC Glucose 155 (58-89) H 09/03/16 07:46 - Clinical Findings Intake & Output: Intake & Output 09/02/16 09/03/16 09/03/16 23:59 07:59 15:59 Intake Total 340 / 340 1350 / 1350 240 / 240 Output Total 800 / 800 0 / 0 Balance -460 / -460 1350 / 1350 240 / 240 Weight 56.2 kg Consult Discharge Plan - Plan Referrals: Roberto Hensley, [facility] [Primary Care Provider] -
[2016-09-03] MEDS: Tiotropium 18 MCG inhalation IH SCH (10:53)
[2016-09-03] MEDS ORDERED: Ipratropium/Albuterol Neb 3 ML IH PRN (11:51)
[2016-09-03] MEDS ORDERED: Levofloxacin 750 MG/150 ML 750 MG/150 ML BAG IVPB SCH (12:00)
--- NOTE | 2016-09-03 13:40 | Oncology Inp Consult Note ---
Date of Encounter: 09/03/16 Time of Encounter: 13:00 Assessment and Plan (1) Renal cell carcinoma of right kidney Status: Chronic Assessment and plan: Metastatic renal cell ca, s/p lung bx--was on pazopanib 800mg daily since 01/21- -held 05/22, due to pneumonia/decline in EF. She has started immunotherapy status post cycle 1 week ago, tolerated well. He had also started radiation to hilar mass, hospitalized with worsening shortness of breath symptoms suggestive for postobstructive pneumonia. He is currently on broad-spectrum antibiotics plan to continue, clinically improved today. CTA neg PE. Rpt echo as scheduled by cardio--?as in patient or later date Haedaches--r/o brain mets--MRI brain or CT with contrast. COPD/SOB--smoking-on inhlational Rx, steroids as needed Adv care directives -has outpt appt Issues concerning treatment and diagnosis were discussed. There were no barriers to understanding. The explanation was well received by the patient who then verbalized understanding. - Data of Consult Requesting Physician: Windy Gordon MD Primary Care Provider: Roberto Hensley CNP - Consult Narrative Reason for consult: renal cell carcinoma History of present illness: 60 yo Male with medical history significant for asthma, diagnosed with kidney ca -metastatic when initially, MRI spine done for back pain showed a 10 cm mass arising from the right kidney, followed by cT imaging that showed metastatic disease in the lungs.. Tolerated pazopanib well, until patient was hospitalized in May 2016 with pneumonia shortness of breath. He had an echocardiogram that showed a decline in ejection fraction. TKI d/elizabet, after recovery from pneumonia--he was started on immunotherapy ( ) which he tolerated well. Restaging scans showed hilar adenopathy and atelectati changes due to obstruction due to which he was scheduled for RT. He is s/p day XRT, just started this wk did not feel well when he came for day 2. He had SOB and episodes of sweats at home. Cough without hemoptysis, clear productive phlegm No CP. Occ rt back pain takes prn meds Has had headaches frequently at home Strated BSA since hospitalization, on O2. Urine Strept/[place] aneg. Slight leucocytosis. 12 pt ROS neg otherwise Past Med Surg Social Fam HX - Past Medical History Medical history: cancer, CHF, COPD, GERD, malignancy, renal disease Psychiatric history: no psych history - Past Surgical History Surgical History: no surgical history - Social History Smoking Status: Current some day smoker Packs per day: 0.5 Smokeless Tobacco Status: No Alcohol use: none Drug use: none - Family History Father Living Status: Hx Family Cancer: Yes (esophageal cancer) Mother Living Status: Hx Family Cancer: Yes (pancreatic) Medications and Allergies Fluticasone/Salmeterol [Advair 250-50 Diskus] 1 puff IH BID 01/07/16 [History] Ipratropium/Albuterol Neb [Duoneb] 3 ml IH TID 01/07/16 [History] Ondansetron HCl 4 mg PO Q8H PRN #60 tablet 02/07/16 [Rx] Albuterol Sulfate [Proair Hfa] 2 puff IH Q4H PRN #1 hfa.aer.ad 04/06/16 [Rx] Omeprazole [PriLOSEC] 20 mg PO DAILY PRN #45 cap 04/14/16 [Rx] Ipratropium/Albuterol Sulfate [Combivent Respimat Inhal [place]] 1 puff IH QID [History] Simethicone [Gas-X] 80 mg PO TID PRN 06/25/16 [History] Acetaminophen [Tylenol] 500 mg PO Q6HR PRN #20 tablet 07/02/16 [Rx] Aspirin Enteric Coated [Aspirin EC] 81 mg PO DAILY #30 tablet. 07/02/16 [Rx] Atorvastatin [Lipitor] 40 mg PO HS #30 tablet 07/02/16 [Rx] Lisinopril [Zestril] 2.5 mg PO DAILY #30 tablet 07/02/16 [Rx] Metoprolol XL (24 HR) Succ [Toprol Xl] 25 mg PO DAILY #30 tab.er.24h 07/02/16 [ Rx] Nicotine Patch [Nicoderm] 7 mg TD DAILY #30 patch.td24 07/02/16 [Rx] Budesonide/Formoterol 160/4.5 [Symbicort] 1 puff IH BID #1 inhaler 07/24/16 [Rx] ALPRAZolam [Xanax 0.25 MG Tablet] 0.25 mg PO TID PRN #90 tablet 08/18/16 [Rx] OxyCODONE Immed Rel [Roxicodone 5 MG] 5 mg PO BID PRN #60 tablet 08/18/16 [Rx] Allergies No Known Allergies Allergy (Verified 12/10/15 15:06) Review of systems: as in HPI Oncology - Exam - Constitutional Vitals: Temp Pulse Resp BP Pulse Ox 97.6 F 104 16 101/63 99 09/03/16 10:42 09/03/16 10:42 09/03/16 10:42 09/03/16 10:42 09/03/16 10:42 Exam: GENERAL: Alert and oriented, thin built on O2 NC Mental Status: Affect appropriate for circumstances HEENT: Sclerae anicteric. Skin: No rashes or petechiae. Cardiac: S1, S2 + Chest: Bilateral air entry, clear Lymph nodes: No cervical, supraclavicular, axillary adenopathy. Abdomen: Soft, non-tender; no organomegaly or masses palpable. Extremities: No edema. No calf swelling or tenderness. Neurologic: Alert, cranial nerves II-XII intact; no focal weakness Oncology - Results - Labs Labs: Short CBC 09/03/16 Range/Units 03:25 WBC 12.2 H (4.3-11.1) K/mcL Hgb 11.0 L (12.9-16.9) g/dL Hct 33.6 L (37.5-50.1) % Plt Count 324 (140-400) K/mcL Neutrophils # 11.0 H (1.6-8.9) K/mcL BMP 09/03/16 03:25 Sodium 134 L Potassium 4.8 H Chloride 98 Carbon Dioxide 29 BUN 13 Creatinine 0.76 Glucose 187 H Calcium 9.2 - Imaging and Cardiology CT scan - chest Status: image reviewed by me Consult Discharge Plan - Plan Referrals: Roberto Hensley CNP [Primary Care Provider] -
--- NOTE | 2016-09-03 16:38 | Internal Med Progress Note ---
Date of Encounter: 09/03/16 Time of Encounter: 09:15 - Assessment and plan (1) Sepsis Current Visit: Yes Status: Acute Assessment and plan: Patient did present with mild leukocytosis, tachycardia, hypoxia with possible right lung pneumonia. Difficult to confirm if his symptoms are related to infectious etiology but patient has been started on broad-spectrum IV antibiotics. IV hydration. Further plan as below. Qualifiers: Sepsis type: sepsis due to unspecified organism Qualified Code(s): A41.9 - Sepsis, unspecified organism (2) HCAP (healthcare-associated pneumonia) Current Visit: Yes Status: Acute Assessment and plan: Patient is recently started on radiotherapy for metastatic lung disease secondary to renal cell cancer. He started having respiratory symptoms with worsening cough and shortness of breath since initiating radiotherapy. CT angiogram of chest shows no evidence of pulmonary embolism but he does have significant right hilar lung mass, causing compressive atelectasis of right middle lobe along with compression of right-sided airways per pulmonology. Pulmonology consult appreciated, de-escalate antibiotics as current preliminary cultures are negative, nasal MRSA screen is negative, urine Legionella and pneumococcal antigen negative. Bronchoscopy would not add much to current management. Supportive care and supplemental oxygen. (3) Lung metastases Current Visit: Yes Status: Acute Assessment and plan: Oncology consult noted. To follow up chemoradiotherapy as outpatient. Qualifiers: Laterality: right Qualified Code(s): C78.01 - Secondary malignant neoplasm of right lung (4) Renal cell adenoma of right kidney Current Visit: Yes Status: Chronic Assessment and plan: Currently on chemotherapy and radiation for lung metastases. 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 Continue beta анна, diuretic and hold TRACE inhibitor due to mild hyperkalemia. Telemetry monitoring. Follows with cardiology as outpatient for repeat echocardiogram to evaluate for improvement. Qualifiers: Heart failure chronicity: chronic Qualified Code(s): I50.22 - Chronic systolic (congestive) heart failure (6) Tobacco abuse Current Visit: Yes Status: Chronic Assessment and plan: Has been cutting down significantly, currently down to 3 or 4 cigarettes per day. Declines nicotine replacement therapy at this time. (7) COPD (chronic obstructive pulmonary disease) Current Visit: Yes Status: Chronic Assessment and plan: Not noted to be in acute exacerbation. Continue as needed bronchodilators, inhaled corticosteroids; noted to be on supplemental oxygen at home, continue the same. Qualifiers: COPD type: unspecified COPD Qualified Code(s): J44.9 - Chronic obstructive pulmonary disease, unspecified - Subjective Interval history: Feels much better today. Improved cough and shortness of breath. Saturating well on nasal cannula. No fever, chills, chest pain, confusion. - Constitutional Vitals: Temp Pulse Resp BP Pulse Ox 97.6 F 86 16 96/64 97 09/03/16 14:12 09/03/16 14:12 09/03/16 14:12 09/03/16 14:12 09/03/16 14:12 General appearance: Present: cachectic, A&O X 3, answers questions appropriately - Respiratory Respiratory exam: Present: CTAB (Coarse breath sounds on the right side). Absent: accessory muscle use, rales, rhonchi, wheezes - Cardiovascular Cardiovascular exam: Present: RRR, +S1, +S2, tachycardia. Absent: diastolic murmur, gallop, rubs, systolic murmur - GI/Abdominal GI/Abdominal exam: Present: normal bowel sounds, soft, no peritoneal signs. Absent: distended, tenderness - Extremities Exam Extremities exam: Present: full ROM, warm, radial pulses palpable and symetrical. Absent: calf tenderness, cyanotic, pedal edema - Neurological Exam Neurological exam: Present: CN II-XII intact, oriented X3, no focal deficits. Absent: pronater drift, facial droop, speech deficit Internal Medicine: Result - Labs CBC & Chem 7: 09/03/16 03:25 09/03/16 03:25 Labs: Short CBC 09/03/16 Range/Units 03:25 WBC 12.2 H (4.3-11.1) K/mcL Hgb 11.0 L (12.9-16.9) g/dL Hct 33.6 L (37.5-50.1) % Plt Count 324 (140-400) K/mcL Neutrophils # 11.0 H (1.6-8.9) K/mcL BMP 09/03/16 03:25 Sodium 134 L Potassium 4.8 H Chloride 98 Carbon Dioxide 29 BUN 13 Creatinine 0.76 Glucose 187 H Calcium 9.2 - ABG Interpretation ABG results: PT/INR, D-dimer PT 15.9 Seconds (9.4-12.1) H 09/02/16 11:20 D-Dimer 1135 ng/mLFEU (0-500) H 09/02/16 11:20 Consult Discharge Plan - Plan Referrals: Birdie Lin CNP [Advanced Practice Nurse] - 09/10/16 10:30 am
--- NOTE | 2016-09-03 17:43 | Electrocardiograph Report ---
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
[2016-09-03] MEDS ORDERED: Budesonide/Formoterol 80/4.5 MDI IH SCH (21:00)
[2016-09-04] MEDS: *HR* Enoxaparin 40 MG/0.4 ML SYRINGE SQ SCH (05:12)
[2016-09-04 05:48] LABS: Basophils % 0.2 %; Eosinophils % 0.2 %; Hematocrit 34.9 % (37.5-50.1); Hemoglobin 10.7 g/dL (12.9-16.9); Immature Granulocytes % 0.4 % (0-4); Lymphocytes # 0.6 K/mcL (0.6-4.6); Mean Corpuscular HGB Conc 30.7 g/dL (31.6-35.5); Mean Corpuscular Hemoglobin 28.5 pg (28.0-33.3); Mean Corpuscular Volume 92.8 fL (83.0-100.0); Mean Platelet Volume 8.9 fL (9.4-12.4); Monocytes # 0.8 K/mcL (0.0-1.3); Monocytes % 7.8 %; Neutrophils # 8.6 K/mcL (1.6-8.9); Platelet Count 356 K/mcL (140-400); Red Blood Count 3.76 M/mcL (4.19-5.50); Red Cell Distribution Width 13.9 % (11.5-14.5); Segmented Neutrophils % 85.4 %
[2016-09-04] MEDS: Cefepime HCl 1,000 MG in D5% in Water (Mini-Bag+) 100 ML IVPB SCH (09:18)
[2016-09-04] MEDS: Metoprolol XL (24 HR) Succ 25 MG TAB.ER.24H PO SCH (09:28)
[2016-09-04] MEDS: Nicotine 7 MG PATCH.TD24 TD SCH (09:28)
[2016-09-04] MEDS: Aspirin Enteric Coated 81 MG Tablet PO SCH (09:28)
[2016-09-04 09:38] VITALS: BP 104/65
--- NOTE | 2016-09-04 10:12 | Discharge Summary ---
Date of Encounter: 09/04/16 Time of Encounter: 10:12 - Discharge Diagnosis (1) Sepsis Priority: Primary Status: Acute Qualifiers: Sepsis type: sepsis due to unspecified organism Qualified Code(s): A41.9 - Sepsis, unspecified organism (2) HCAP (healthcare-associated pneumonia) Priority: Primary Status: Acute (3) Lung metastases Priority: Secondary Status: Chronic Qualifiers: Laterality: right Qualified Code(s): C78.01 - Secondary malignant neoplasm of right lung (4) Renal cell adenoma of right kidney Priority: Secondary Status: Chronic (5) HFrEF (heart failure with reduced ejection fraction) Priority: Secondary Status: Chronic Qualifiers: Heart failure chronicity: chronic Qualified Code(s): I50.22 - Chronic systolic (congestive) heart failure (6) Tobacco abuse Priority: Secondary Status: Chronic (7) COPD (chronic obstructive pulmonary disease) Priority: Secondary Status: Chronic Qualifiers: COPD type: unspecified COPD Qualified Code(s): J44.9 - Chronic obstructive pulmonary disease, unspecified - Discharge Medications Prescriptions: levoFLOXacin [Levaquin] 500 mg PO DAILY #7 tablet Home Medications: Fluticasone/Salmeterol [Advair 250-50 Diskus] 1 puff IH BID 01/07/16 [History] Ipratropium/Albuterol Neb [Duoneb] 3 ml IH TID 01/07/16 [History] Ondansetron HCl 4 mg PO Q8H PRN #60 tablet 02/07/16 [Rx] Albuterol Sulfate [Proair Hfa] 2 puff IH Q4H PRN #1 hfa.aer.ad 04/06/16 [Rx] Omeprazole [PriLOSEC] 20 mg PO DAILY PRN #45 cap 04/14/16 [Rx] Ipratropium/Albuterol Sulfate [Combivent Respimat Inhal [place]] 1 puff IH QID [History] Simethicone [Gas-X] 80 mg PO TID PRN 06/25/16 [History] Acetaminophen [Tylenol] 500 mg PO Q6HR PRN #20 tablet 07/02/16 [Rx] Aspirin Enteric Coated [Aspirin EC] 81 mg PO DAILY #30 tablet. 07/02/16 [Rx] Atorvastatin [Lipitor] 40 mg PO HS #30 tablet 07/02/16 [Rx] Lisinopril [Zestril] 2.5 mg PO DAILY #30 tablet 07/02/16 [Rx] Metoprolol XL (24 HR) Succ [Toprol Xl] 25 mg PO DAILY #30 tab.er.24h 07/02/16 [ Rx] Nicotine Patch [Nicoderm] 7 mg TD DAILY #30 patch.td24 07/02/16 [Rx] Budesonide/Formoterol 160/4.5 [Symbicort 160/4.5] 1 puff IH BID #1 inhaler 07/24 [Rx] ALPRAZolam [Xanax 0.25 MG Tablet] 0.25 mg PO TID PRN #90 tablet 08/18/16 [Rx] OxyCODONE Immed Rel [Roxicodone 5 MG] 5 mg PO BID PRN #60 tablet 08/18/16 [Rx] levoFLOXacin [Levaquin] 500 mg PO DAILY #7 tablet 09/04/16 [Rx] Allergies/Adverse Reactions: Allergies No Known Allergies Allergy (Verified 12/10/15 15:06) Date of admission: 09/02/16 15:34 Primary care physician: Roberto Hensley CNP Discharging clinician: Windy Gordon Anticipated date of discharge: 09/04/16 - Patient Status Disposition: Home, Self-Care Condition: Fair Functional capacity at discharge: independent ambulation Overall status at discharge: patient is progressing back to baseline - Discharge Instructions Instructions: Pneumonia (DC) Follow Up With: Evelyn Che MD [Partnered Physician] - 09/11/16 11:40 am (Chemo will be at 10:00.) Birdie Lin CNP [Advanced Practice Nurse] - 09/10/16 10:30 am Additional Instructions: F/up with Oncology as scheduled - Diet and Activity Activity: resume usual activities as tolerated, wear oxygen at all times Diet: low fat, low cholesterol, low salt diet Hospital course: Mr. Abrams is a 61 year old male with thee above medical problems including stage 4 renal cell cancer with right lung mets, was admitted with worsening cough and dyspnea and hypoxia, since being started on radiation therapy about 3 days back. Patient had mild leukocytosis and tachycardia with no documented fever. CT angiogram was done which showed no pulmonary embolism but possible right-sided postobstructive pneumonia. He was started on broad-spectrum IV antibiotics-vancomycin, Levaquin and cefepime. He felt significantly better by the next morning, sputum culture could not be sent due to inadequate sample. Urine Legionella and pneumococcal antigen and remained negative. Pulmonology was consulted and recommended to de-escalate antibiotics. No further intervention was recommended and patient's symptoms were more likely due to compressive atelectasis and right-sided airway compression from the tumor mass and less likely from infectious etiology. Patient significantly improved today and oxygen requirements improved to baseline. He is currently medically stable for discharge with outpatient follow -up. He was advised about smoking cessation and he reports having cut down significantly and would try to quit completely. Time spent discussing smoking cessation with patient: 3 to 10 minutes (4 min) - Time Spent with Patient Total time spent providing and/or coordinating discharge services: Greater than 30 minutes (35 min) - Constitutional Vitals: Temp Pulse Resp BP Pulse Ox 97.5 F L 108 16 104/65 95 09/04/16 09:36 09/04/16 09:36 09/04/16 09:36 09/04/16 09:36 09/04/16 08:01 General appearance: Present: cachectic, A&O X 3, answers questions appropriately - Respiratory Respiratory exam: Present: CTAB. Absent: accessory muscle use, rales, rhonchi, wheezes - Cardiovascular Cardiovascular exam: Present: RRR, +S1, +S2, tachycardia. Absent: diastolic murmur, gallop, rubs, systolic murmur
[2016-09-04] MEDS: Budesonide/Formoterol 160/4.5 MDI IH SCH (11:03)
[2016-09-04] MEDS: Tiotropium 18 MCG inhalation IH SCH (11:03)
== END 2016-09-04 13:21 | disposition home or self-care (01) | DRG 720 ==
LOC: 3ANU 10:39 → EMEROO 10:39 → 3ANU 14:35
PROVIDERS: ADMIT Internal Medicine; ATTEND Internal Medicine

== ENCOUNTER 2017-11-11 15:34 | Observation (INO) ==
--- NOTE | 2017-11-11 16:37 | Emergency Department Note ---
Disposition Clinical Impression: Shortness of breath, COPD exacerbation Disposition: Admitted As Inpatient Condition: Good Referrals: Birdie Lin CNP [Primary Care Provider] - Forms: ED Satisfaction Letter Time of Disposition: 18:36 General Adult HPI - General Chief complaint: ED Shortness of Breath/Dyspnea Stated complaint: "ANDREW" Time Seen by Provider: 11/11/17 15:43 Source: patient Mode of arrival: ambulatory Limitations: no limitations Nursing Notes Reviewed: Yes Vital Signs Reviewed: Yes - History of Present Illness HPI Narrative: Patient is a 62-year-old male that presents the emergency department for increased shortness of breath. Patient states that he has a history of COPD and wears 2 L of oxygen at home but this morning his shortness of breath got progressively worse. Patient states that he did have an endoscopy performed today to evaluate for possible intra-abdominal pathology due to abdominal pain. Patient states that while he was an endoscopy they gave him Lasix to help with his leg swelling and shortness of breath. Patient states that this did not really provide much relief. Patient denies having a history of congestive heart failure. Patient states that he has had to increase his oxygen from 2-3 L. I have re-performed and reviewed the history documented by the medical student, and I confirm its accuracy except as noted below Pain Scale: 6 - Related Data Home Medications Medication Instructions Recorded Confirmed Simethicone [Gas-X] 80 mg PO PRN PRN 10/27/16 11/11/17 Metoprolol [Lopressor] 25 mg PO DAILY 12/08/16 11/11/17 Mometasone/Formoterol [Dulera 200 2 puff IH BID 05/11/17 11/11/17 Mcg/5 Mcg Inhaler] raNITIdine HCl [Zantac] 150 mg PO DAILY 11/05/17 11/11/17 Previous Rx's Medication Instructions Recorded Aspirin Enteric Coated [Aspirin EC] 81 mg PO DAILY #30 tablet. 07/02/16 Ipratropium/Albuterol Neb [Duoneb] 3 ml IH TID #42 inhsol 12/17/16 Albuterol Sulfate [Proair Hfa] 2 puff IH Q4H PRN #1 hfa.aer.ad 07/12/17 Omeprazole [PriLOSEC] 20 mg PO DAILY PRN #45 cap 05/08/18 Ondansetron [Zofran ODT] 8 mg SL Q8H PRN #60 tab 07/19/17 Docusate Sodium [Colace] 100 mg PO BID #60 capsule 09/14/17 ALPRAZolam [Xanax 0.25 MG Tablet] 0.25 mg PO TID PRN 30 Days #90 10/12/17 tablet OxyCODONE Immed Rel [Roxicodone 10 10 mg PO TID PRN 30 Days #90 tab 10/12/17 MG] Sucralfate [Carafate] 1 gm PO TID #120 tablet 10/12/17 Allergies Allergy/AdvReac Type Severity Reaction Status Date / Time No Known Allergies Allergy Verified 11/05/17 13:28 All systems ED: reviewed and negative except as stated. Cardiovascular: Denies: chest pain Respiratory: Reports: dyspnea Hematological/Lymphatic: Reports: other (Swelling in bilateral lower medrano days.) Past Medical History - Past Medical History Medical history: Reports: asthma, cancer, CHF, COPD, GERD, malignancy, renal disease Surgical history: Reports: cataract Psychiatric history: Reports: no psych history - Social History Smoking Status: Current every day smoker Smokeless Tobacco Status: No Alcohol use: Reports: none Drug use: Reports: none Physical Exam - General Limitations: no limitations General appearance: alert, in no apparent distress - Head Head exam: atraumatic, normocephalic - Eye Eye exam: Present: normal appearance, EOMI - Neck Neck exam: Present: normal inspection, full ROM, trachea midline - Respiratory Respiratory exam: Present: other (Rales bilaterally in the lower lobes) - Cardiovascular Cardiovascular exam: Present: regular rate, normal rhythm, normal heart sounds, +S1, +S2 - Abdominal Exam Abdominal exam: Present: soft, tenderness, normal bowel sounds Abdominal tenderness: Present: epigastrium - Extremities Exam Extremities exam: Present: other (2+ pitting edema bilateral lower extremity.) - Neurological Exam Neurological exam: Present: alert, oriented X3 - Psychiatric Psychiatric exam: Present: normal affect, normal mood - Skin Skin exam: Present: warm, dry, intact Course Vital Signs Temperature 97.6 F 11/11/17 15:40 Pulse Rate 96 11/11/17 15:40 Respiratory Rate 15 11/11/17 15:40 Blood Pressure 96/64 11/11/17 15:40 O2 Sat by Pulse Oximetry 95 11/11/17 15:40 Temperature 97.6 F 11/11/17 15:54 Pulse Rate 110 11/11/17 19:01 Respiratory Rate 22 11/11/17 19:01 Blood Pressure 113/76 11/11/17 19:01 O2 Sat by Pulse Oximetry 93 11/11/17 19:01 Oxygen Delivery Oxygen Delivery Nasal Cannula Medical Decision Making - MDM Narrative Medical decision making narrative: Due the patient presenting with increased work of breathing and shortness of breath we will obtain basic laboratory testing chest x-ray and EKG. Patient's EKG did not show any ischemic changes and was a sinus rhythm. Chest x-ray did show evidence of possible pulmonary edema. Patient received a DuoNeb breathing treatment and steroids. Patient states that he had significant improvement of his shortness of breath after receiving the breathing treatment. Hg 12.1. His CO2 is 41. Troponin is negative. BNP is not elevated. I feel that this is likely related to possible COPD exacerbation. However due to the patient requiring increased oxygen from his baseline and having increased work of breathing I feel that he will need to be admitted to the hospital for further evaluation and management. Patient is in agreement with this plan. A call spoke with the admitting hospitalist Dr. Chavez and he has accepted the patient to their service. Patient will be admitted to the hospital at this time for further evaluation and management. XR/XR chest 1V IMPRESSION: New bilateral airspace disease, which is favored to be due to pulmonary edema. The patient has right hilar lymphadenopathy, as well as a mass in the right kidney, and new pulmonary metastatic disease cannot be excluded. Further evaluation with CT should be considered. 1717 hrs. were negative and bring him into the hospital. She is in agreement with plan. - Medical Records Medical records reviewed: Yes I reviewed the patient's medical records. - Lab Data Lab results reviewed: Yes I reviewed the patient's lab results. Result diagrams: 11/11/17 16:01 11/11/17 16:01 Lab Results 11/11/17 11/11/17 11/11/17 Range/Units 16:01 16: 16:01 WBC 5.5 (4.3-11.1) K/mcL RBC 4.46 (4.19-5.50) M/mcL Hgb 12.1 L (12.9-16.9) g/dL Hct 38.7 (37.5-50.1) % MCV 86.8 (83.0-100.0) fL MCH 27.1 L (28.0-33.3) pg MCHC 31.3 L (31.6-35.5) g/dL RDW 16.0 H (11.5-14.5) % Plt Count 316 (140-400) K/mcL MPV 9.6 (9.4-12.4) fL Immature Gran % 0.5 (0-4) % Seg Neutrophils % 74.6 % Lymphocytes % 8.1 % Monocytes % 15.3 % Eosinophils % 1.1 % Basophils % 0.4 % Neutrophils # 4.1 (1.6-8.9) K/mcL Lymphocytes # 0.5 L (0.6-4.6) K/mcL Monocytes # 0.9 (0.0-1.3) K/mcL Eosinophils # 0.1 (0.0-0.6) K/mcL Basophils # 0.0 (0.0-0.2) K/mcL Sodium 133 L (136-145) mEq/L Potassium 3.9 (3.5-5.1) mEq/L Chloride 89 L (98-107) mEq/L Carbon Dioxide 41 H* (23-29) mEq/L BUN 7 L (8-23) mg/dL Creatinine 0.57 L (0.70-1.30) mg/dL Est GFR ( Amer) > 60 (> 60) Est GFR (Non-Af Amer) > 60 (> 60) BUN/Creatinine Ratio 12 (6-26) Glucose 95 (70-105) mg/dL Calculated Osmolality 274 L (280-300) Calcium 9.1 (8.6-10.3) mg/dL Troponin I < 0.03 (< 0.04) ng/mL B-Natriuretic Peptide 53 (Less than 100) pg/mL - Radiology Data Radiology results reviewed: Yes I reviewed the patient's radiology results. - EKG Data EKG #1 EKG attestation: Yes I reviewed and interpreted this EKG. EKG results narrative: EKG shows sinus rhythm with occasional PVCs. At a rate of 84 bpm, UT interval 136, QRS duration of 99, QTC of 445. No evidence of STEMI on EKG. Attestation Statement - Attestation Attestation: This documentation is done with the assistance of Dragon dictation. Despite efforts made to ensure accuracy, there may be inaccuracies in inspector canned food reconditioning or spelling and typographical errors. I examined this patient and my medical decision-making was reviewed with the Resident Physician. I agree with the documented findings, disposition and treatment plan as described except to the extent set forth below. Patient seen and evaluated on arrival with Dr. Ramirez and myself, agree with his evaluation management plan, supervise care the patient's stay. Patient presents today with symptoms of COPD and CHF. He was getting procedure done today with sounds like endoscopy for looking for lesions of the stomach. He says those were negative. He did get some Lasix today. He did sound wet. They also COPD work until workup on him and then reassess. He may need admission. He is in agreement this plan.
[2017-11-11 16:41] LABS: Basophils % 0.4 %; Eosinophils # 0.1 K/mcL (0.0-0.6); Eosinophils % 1.1 %; Hematocrit 38.7 % (37.5-50.1); Hemoglobin 12.1 g/dL (12.9-16.9); Immature Granulocytes % 0.5 % (0-4); Lymphocytes # 0.5 K/mcL (0.6-4.6); Lymphocytes % 8.1 %; Mean Corpuscular HGB Conc 31.3 g/dL (31.6-35.5); Mean Corpuscular Hemoglobin 27.1 pg (28.0-33.3); Mean Corpuscular Volume 86.8 fL (83.0-100.0); Mean Platelet Volume 9.6 fL (9.4-12.4); Monocytes # 0.9 K/mcL (0.0-1.3); Monocytes % 15.3 %; Neutrophils # 4.1 K/mcL (1.6-8.9); Platelet Count 316 K/mcL (140-400); Red Blood Count 4.46 M/mcL (4.19-5.50); Segmented Neutrophils % 74.6 %
--- NOTE | 2017-11-11 16:47 | Emergency Department Note ---
Disposition Clinical Impression: Shortness of breath Disposition: Still a Patient Referrals: Birdie Lin SUBSTATION OPERATOR HELPER [Primary Care Provider] - SOB HPI - General Chief Complaint: ED Shortness of Breath/Dyspnea Stated Complaint: "ANDREW" Time Seen by Provider: 11/11/17 15:43 Source: patient Mode of arrival: other (down from endo suite) Limitations: no limitations - History of Present Illness Mr. Abrams is a 62 yo M with a HxO COPD and CHF that presents with SOB that is worse with movement and lymphedema sp EGD/Colonoscopy today. He's on 2L of oxygen at home. He states he has a history of systolic CHF for which he see Dr Rivera and Dr Cruz for stage 4 renal cancer with mets to the lung. The pt states that he has been on Chemo for the last 2 months due to abd pain which is what led to the EGD and colonoscopy. After the procedure today he developed mild SOB and pedal edema for which he was given Lasix and referred to the ER for evaluation. He denies CP, PIERRE, syncope, lightheadedness. - Related Data Home Medications Medication Instructions Recorded Confirmed Simethicone [Gas-X] 80 mg PO PRN PRN 10/27/16 11/05/17 Metoprolol [Lopressor] 25 mg PO DAILY 12/08/16 11/05/17 Mometasone/Formoterol [Dulera 200 2 puff IH BID 05/11/17 11/05/17 Mcg/5 Mcg Inhaler] Promethazine [Phenergan] 25 mg PO Q6HR PRN 07/13/17 11/05/17 raNITIdine HCl [Zantac] 150 mg PO DAILY 11/05/17 11/05/17 Previous Rx's Medication Instructions Recorded Ondansetron HCl 4 mg PO Q8H PRN #60 tablet 02/07/16 Aspirin Enteric Coated [Aspirin EC] 81 mg PO DAILY #30 tablet. 07/02/16 Ipratropium/Albuterol Neb [Duoneb] 3 ml IH TID #42 inhsol 12/17/16 Albuterol Sulfate [Proair Hfa] 2 puff IH Q4H PRN #1 hfa.aer.ad 07/12/17 Omeprazole [PriLOSEC] 20 mg PO DAILY PRN #45 cap 07/13/17 Ondansetron [Zofran ODT] 8 mg SL Q8H PRN #60 tab 07/19/17 Docusate Sodium [Colace] 100 mg PO BID #60 capsule 09/14/17 HYDROmorphone [Dilaudid] 4 mg PO TID 30 Days #90 tablet 09/14/17 Handicap Placard 1 each .ROUTE AD #1 each 09/14/17 ALPRAZolam [Xanax 0.25 MG Tablet] 0.25 mg PO TID PRN 30 Days #90 10/12/17 tablet Amoxicillin/Clavulanate [Augmentin] 500 mg PO BIDWM #14 tablet 10/12/17 OxyCODONE Immed Rel [Roxicodone 10 10 mg PO TID PRN 30 Days #90 tab 10/12/17 MG] Sucralfate [Carafate] 1 gm PO TID #120 tablet 10/12/17 Allergies Allergy/AdvReac Type Severity Reaction Status Date / Time No Known Allergies Allergy Verified 11/05/17 13:28 Constitutional: Denies: fever, chills, weakness Eyes: Denies: vision change Cardiovascular: Reports: dyspnea on exertion. Denies: chest pain, palpitations , syncope Respiratory: Reports: dyspnea. Denies: cough, wheezes, hemoptysis, stridor, sputum production Gastrointestinal: Reports: abdominal pain. Denies: nausea, vomiting, diarrhea Genitourinary: Denies: dysuria, hematuria Neurological: Denies: headache, weakness, numbness Endocrine: Reports: fatigue Hematological/Lymphatic: Reports: other (R>L pedal edema) Past Medical History - Past Medical History Medical history: Reports: asthma, cancer, CHF, COPD, GERD, malignancy, renal disease Surgical history: Reports: cataract Psychiatric history: Reports: no psych history - Social History Smoking Status: Current every day smoker Smokeless Tobacco Status: No Alcohol use: Reports: none Drug use: Reports: none Physical Exam - General Limitations: no limitations General appearance: alert, in no apparent distress Course Vital Signs Temperature 97.6 F 11/11/17 15:40 Pulse Rate 96 11/11/17 15:40 Respiratory Rate 15 11/11/17 15:40 Blood Pressure 96/64 11/11/17 15:40 O2 Sat by Pulse Oximetry 95 11/11/17 15:40 Temperature 97.6 F 11/11/17 15:54 Pulse Rate 96 11/11/17 15:54 Respiratory Rate 15 11/11/17 15:54 Blood Pressure 96/64 11/11/17 15:54 O2 Sat by Pulse Oximetry 95 11/11/17 15:54 Oxygen Delivery Oxygen Delivery Nasal Cannula
[2017-11-11 16:54] LABS: BUN/Creatinine Ratio 12 (6-26); Blood Urea Nitrogen 7 mg/dL (8-23); Calcium 9.1 mg/dL (8.6-10.3); Chloride 89 mEq/L (98-107); Glucose 95 mg/dL (70-105); Osmolality,Calculated 274 (280-300); Potassium 3.9 mEq/L (3.5-5.1); Sodium 133 mEq/L (136-145); Troponin I < 0.03 ng/mL (< 0.04); eGFR For Non-African Americans > 60 (> 60)
[2017-11-11] MEDS ORDERED: methylPREDNISolone 125 MG/2 ML VIAL IVP ONE (16:58)
[2017-11-11] MEDS ORDERED: Ipratropium/Albuterol Neb 3 ML IH ONE (16:58)
[2017-11-11 19:07] LABS: Carbon Dioxide 41 mEq/L (23-29)
[2017-11-11] MEDS ORDERED: Isovue-370 500 ML INFUS..BTL IV ONE (20:22)
[2017-11-11] MEDS ORDERED: *HR* Heparin 5,000 UNIT/ML VIAL IVP ONE (20:23)
[2017-11-11] MEDS ORDERED: *HR* Heparin 5,000 UNIT/ML VIAL IVP PRN (20:23)
[2017-11-11] MEDS ORDERED: Heparin 25,000 UNIT/500 ML D5W 25,000 UNIT/500 ML BAG IVC SCH (20:30)
[2017-11-11 20:48] LABS: Heparin anti-factor XA UFH 0.04 IU/mL (0.30-0.70)
[2017-11-11 20:49] LABS: INR 1.3; Prothrombin Time 14.1 Seconds (9.4-12.1)
[2017-11-11] MEDS ORDERED: Naloxone 0.4 MG/ML INJ IVP PRN (21:02)
[2017-11-11] MEDS ORDERED: Albuterol 2.5 MG/3 ML NEBULIZER IH PRN (21:02)
[2017-11-11] MEDS ORDERED: Simethicone 80 MG TAB.CHEW PO PRN (21:07)
--- NOTE | 2017-11-11 21:50 | Internal Med History&Physical ---
Date of Encounter: 11/11/17 Time of Encounter: 20:00 Internal Medicine - H&P: HPI Chief complaint: SOB; cough Admitted From: Emergency Dept Plans for Post Hospital Care: Home History of present illness: Mr. Abrams is a 62 year old male who presents to the ER with acute onset of shortness of breath, wheezing, and coughing. He was in outpatient endoscopy today having upper and lower endoscopy when he became acutely short of breath, had extensive wheezing, and was in respiratory distress. He also was noted to have low extremity edema. Reportedly, he was given a dose of Lasix there and sent to ER for evaluation. Workup in ER revealed patient to have COPD exacerbation, and he had some improvement with steroids and aerosols. I saw patient in the ER, and he was in obvious respiratory distress and having difficulty breathing. He denied any chest pain. However, he does complain of sudden onset shortness of breath during endoscopy today. He has severe COPD and is chronically short of breath. Today's event was much worse than his baseline dyspnea. He also complains of having lower edema recently, right leg greater than his left leg. He denies any prior history of blood clots. However , his sister about 5 years ago from a massive PE. Given patient's history of kidney cancer and family history of PE, I am quite concerned about this patient having pulmonary embolus and/or DVT. I therefore asked the ER to obtain a CT angiogram of his chest and to start heparin drip empirically for the remote possibility of DVT/PE. Patient denies any fevers or chills. He denies any vomiting or diarrhea. He does feel somewhat better with aerosols and oxygen support in the ER. Past Med Surg Social Fam HX - Past Medical History Attestation: Yes The following information was validated with the patient. Source: patient, old records reviewed Medical history: asthma, cancer, CHF, COPD, GERD, malignancy, renal disease Additional medical history: Kidney and Lung CA Psychiatric history: no psych history - Past Surgical History Surgical History: cataract Additional surgical history: lung biopsy - Social History Smoking Status: Current every day smoker Smokeless Tobacco Status: No Alcohol use: none Drug use: none Current living situation: Home Activity Level: Mostly sedentary Recent Out of Country Travel Within the Last 8 Weeks: No - Family History Father Living Status: Hx Family Cancer: Yes (esophageal cancer) Mother Living Status: Hx Family Cancer: Yes (pancreatic) - Additional Family History Additional family history: sister from massive PE 5 years ago Internal Medicine - H&P: Meds Aspirin Enteric Coated [Aspirin EC] 81 mg PO DAILY #30 tablet. 07/02/16 [Rx] Simethicone [Gas-X] 80 mg PO DAILY PRN 10/27/16 [History] Metoprolol [Lopressor] 25 mg PO DAILY 12/08/16 [History] Ipratropium/Albuterol Neb [Duoneb] 3 ml IH TID #42 inhsol 12/17/16 [Rx] Mometasone/Formoterol [Dulera 200 Mcg/5 Mcg Inhaler] 2 puff IH BID 05/11/17 [ History] Albuterol Sulfate [Proair Hfa] 2 puff IH Q4H PRN #1 hfa.aer.ad 07/12/17 [Rx] Omeprazole [PriLOSEC] 20 mg PO DAILY PRN #45 cap 07/13/17 [Rx] Ondansetron [Zofran ODT] 8 mg SL Q8H PRN #60 tab 07/19/17 [Rx] Docusate Sodium [Colace] 100 mg PO BID #60 capsule 09/14/17 [Rx] ALPRAZolam [Xanax 0.25 MG Tablet] 0.25 mg PO TID PRN 30 Days #90 tablet [Rx] OxyCODONE Immed Rel [Roxicodone 10 MG] 10 mg PO TID PRN 30 Days #90 tab [Rx] Sucralfate [Carafate] 1 gm PO TID #120 tablet 10/12/17 [Rx] raNITIdine HCl [Zantac] 150 mg PO DAILY 11/05/17 [History] 3 Allergy/AdvReac Type Severity Reaction Status Date / Time No Known Allergies Allergy Verified 11/05/17 13:28 - Constitutional Constitutional: no chills, no fever(s), no night sweats - EENT Eyes: no blurry vision, no change in vision Ears: no ear pain, no tinnitus Nose, mouth and throat: no nasal congestion, no sinus pain, no sinus pressure - Cardiovascular Cardiovascular ROS IM: dyspnea, dyspnea on exertion, edema, palpitations, no chest pain, no syncope - Respiratory Respiratory: cough, dyspnea, dyspnea on exertion, wheezing, chest congestion, excessive phlegm production, no hemoptysis, no change in phlegm color - Gastrointestinal Gastrointestinal: abdominal pain, no diarrhea, no hematemesis, no hematochezia, no melena, no vomiting - Genitourinary Genitourinary ROS male: no dysuria, no flank pain, no hematuria - Musculoskeletal Musculoskeletal ROS IM: no arthralgias, no back pain - Integumentary Integumentary IM: no rash, no jaundice - Neurological Neurological ROS: no dizziness, no focal weakness, no frequent falls, no headache(s) - Psychiatric Psychiatric: no anxiety, no depression - Endocrine Endocrine IM: no polydipsia, no polyuria - Hematologic/Lymphatic Hematologic/Lymphatic: no easy bruising, no lymphadenopathy - Allergic/Immunologic Allergic/Immunologic: wheezing, no GI upset with certain foods - Constitutional Vitals: Temp Pulse Resp BP Pulse Ox 97.6 F 103 26 104/67 97 11/11/17 15:54 11/11/17 21:36 11/11/17 21:36 11/11/17 21:36 11/11/17 21:36 General appearance: Present: cooperative, A&O X 3, pleasant, answers questions appropriately Exam: moderate to severe respiratory distress with pursed lip breathing, accessory muscle use, and conversational dyspnea - Head Head exam: Present: atraumatic, normal inspection - Eye Eye exam: Present: EOMI, PERRL. Absent: scleral icterus Pupils: Present: normal accommodation - ENT ENT exam: Present: mucous membranes dry, normal exam, normal oropharynx - Neck Neck exam general surgery: Present: full ROM, supple. Absent: tenderness, nuchal rigidity, thyromegaly - Respiratory Respiratory exam: Present: accessory muscle use, decreased breath sounds, prolonged expiratory phase, respiratory distress (moderate to severe), rhonchi, wheezes, tachypnea. Absent: chest wall tenderness, rales - Cardiovascular Cardiovascular exam: Present: distant heart sounds, RRR, +S1, +S2, tachycardia. Absent: diastolic murmur, systolic murmur - GI/Abdominal GI/Abdominal exam: Present: distended, tenderness (mild, diffuse). Absent: guarding, hepatomegaly, rebound, splenomegaly - Extremities Exam Extremities exam: Present: full ROM, normal capillary refill, pedal edema (2+, R >L), warm, radial pulses palpable and symmetrical. Absent: calf tenderness, joint swelling, tenderness - Back Exam Back exam: Absent: CVA tenderness (L), CVA tenderness (R) - Neurological Exam Neurological exam: Present: alert, CN II-XII intact, oriented X3, no focal deficits - Psychiatric Psychiatric exam: Present: normal affect, normal mood - Skin Skin exam: Present: dry, warm. Absent: rash Internal Med - H&P Results - Labs CBC & Chem 7: 11/11/17 16:01 11/11/17 16:01 Labs: Short CBC 11/11/17 Range/Units 16:01 WBC 5.5 (4.3-11.1) K/mcL Hgb 12.1 L (12.9-16.9) g/dL Hct 38.7 (37.5-50.1) % Plt Count 316 (140-400) K/mcL Neutrophils # 4.1 (1.6-8.9) K/mcL BMP 11/11/17 16:01 Sodium 133 L Potassium 3.9 Chloride 89 L Carbon Dioxide 41 H* BUN 7 L Creatinine 0.57 L Glucose 95 Calcium 9.1 Cardiac Enzymes 11/11/17 Range/Units 16:01 Troponin I < 0.03 (< 0.04) ng/mL - EKG Data -: EKG Interpreted by Myself - EKG Data EKG comments: 11/11/17 22:19 NSR, PVC's, no acute ST changes - Impressions ITS Impressions Chest CTA 11/11/17 20:22 IMPRESSION: No PE identified. Stable mediastinal and hilar adenopathy. Interval development of mild bronchiolitis. Redemonstration of right renal mass. D/ / Judson Schmidt MD / Judson Schmidt MD Interpreting Provider: Judson Schmidt MD - Diagnostic Studies CT scan - chest Status: image reviewed by me (no PE; hilar lymphadenopathy) - Assessment and plan (1) Acute respiratory failure with hypoxia Current Visit: Yes Status: Acute Assessment and plan: `1. Likely due to acute COPD exacerbation. 2. Will treat with IV steroids, scheduled aerosols, and antibiotics. 3. Given concern for PE/DVT, will treat with heparin gtt until CTA and BLE Doppler results available. 4. Oxygen and BiPap as needed for support. 5. Sputum cultures ordered. 6. Do not suspect CHF clinically. (2) Asymmetric edema of both lower extremities Current Visit: Yes Status: Acute Assessment and plan: 1. High concern for DVT/PE. 2. Will order BLE Dopplers to R/O DVT. 3. Empiric heparin drip until above study results available. (3) COPD exacerbation Current Visit: Yes Status: Acute Assessment and plan: 1. As above, will treat with IV steroids, aerosols, and antibiotics. 2. Oxygen and pulmonary support as needed. (4) DVT prophylaxis Current Visit: Yes Status: Acute Assessment and plan: 1. Heparin gtt as above.
[2017-11-11] MEDS: *HR* OxyCODONE Immed Rel 5 MG TABLET PO PRN (22:05)
[2017-11-11] MEDS: Levofloxacin 500 MG/100 ML 500 MG/100 ML BAG IVPB SCH (22:06)
[2017-11-11 22:13] LABS: Activated Partial Thrombo Time 36.9 Seconds (26.0-36.0)
[2017-11-11] MEDS: 0.9 % Sodium Chloride w KCl 20 MEQ/1,000 ML MLS IVC SCH (23:37)
[2017-11-12] MEDS: Ipratropium/Albuterol Neb 3 ML IH SCH ×7 (00:09→23:33)
[2017-11-12] MEDS: methylPREDNISolone 125 MG/2 ML VIAL IVP SCH ×2 (05:34→16:14)
[2017-11-12 05:48] LABS: Hematocrit 37.6 % (37.5-50.1); Hemoglobin 11.7 g/dL (12.9-16.9); Immature Granulocytes % 0.3 % (0-4); Lymphocytes # 0.1 K/mcL (0.6-4.6); Lymphocytes % 3.5 %; Mean Corpuscular HGB Conc 31.1 g/dL (31.6-35.5); Mean Corpuscular Hemoglobin 26.7 pg (28.0-33.3); Mean Corpuscular Volume 85.8 fL (83.0-100.0); Mean Platelet Volume 9.7 fL (9.4-12.4); Monocytes # 0.2 K/mcL (0.0-1.3); Monocytes % 5.9 %; Platelet Count 317 K/mcL (140-400); Red Blood Count 4.38 M/mcL (4.19-5.50); Segmented Neutrophils % 90.3 %
[2017-11-12 05:52] LABS: Neutrophils # 3.3 K/mcL (1.6-8.9)
[2017-11-12 06:03] LABS: Alanine Aminotransferase 16 Units/L (7-52); Albumin 2.9 g/dL (3.5-5.7); Albumin/Globulin Ratio 0.8 (1.1-2.2); Alkaline Phosphatase 93 Units/L (34-104); Aspartate Amino Transferase 27 Units/L (13-39); BUN/Creatinine Ratio 21 (6-26); Bilirubin,Total 0.5 mg/dL (0.3-1.0); Blood Urea Nitrogen 13 mg/dL (8-23); Calcium 8.9 mg/dL (8.6-10.3); Carbon Dioxide 37 mEq/L (23-29); Chloride 94 mEq/L (98-107); Globulin 3.7 g/dL (2.4-3.5); Glucose 146 mg/dL (70-105); Magnesium 1.8 mg/dL (1.6-2.6); Osmolality,Calculated 287 (280-300); Potassium 4.7 mEq/L (3.5-5.1); Sodium 137 mEq/L (136-145); Total Protein 6.6 g/dL (6.4-8.9); eGFR For Non-African Americans > 60 (> 60)
[2017-11-12 06:08] LABS: Platelet Estimate Normal (Normal)
[2017-11-12] MEDS: ALPRAZolam 0.25 MG TABLET PO PRN (06:19)
[2017-11-12] MEDS: *HR* Heparin 5,000 UNIT/ML VIAL IVP PRN ×2 (06:24→16:14)
[2017-11-12] MEDS: *HR* OxyCODONE Immed Rel 5 MG TABLET PO PRN ×2 (06:24→16:14)
[2017-11-12] MEDS: Budesonide/Formoterol 160/4.5 1 PUFF INH IH SCH ×2 (07:47→20:04)
--- NOTE | 2017-11-12 09:01 | Internal Med Progress Note ---
<Sushant Delgado - Last Filed: 11/12/17 13:50> Hospitalist Progress Note - Encounter Date of Encounter: 11/12/17 Time of Encounter: 09:45 - Subjective Interval History: 62 year old male presented to ED afteroon of 11/11 for acute onset shortness of breath during upper/lower endoscopy outpatient to screen for metastatic colon cancer from RCC. +wheeze, increased work of breathing, pedal edema, no productive cough, no chest pain, no hemoptysis. PMH significant for metastatic RCC to lung, confirmed via bronchoscopic biopsy in 2017, sees [facility], last appointment 11/05/17, currently on nivolumab. In the interval history since ED eval/admission, patient demonstrated a negative CTA chest for PE, showing hilar adenopathy, bronchiolitis, no consolidation. ECG showed NSR without st elev/depression. He was started on pulmonary toilet-steroids,aerosols, o2 titration, Levaquin. Lower extremity edema was a concern for dvt for which patient was dopplered, he was also prophylactically started on heparin drip protocol (bolus and maintenance dosing) . Doppler results do show a newly discovered but chronic proximal dvt in the R. We are checking his aptt. At time of my evaluation patient says his shortness of breath has improved somewhat, no acute events occurred overnight, he denies chest pain, abdominal pain, or fever. He denies pain in his calves, no new onset hemoptysis or tachycardia. - Exam Vitals: Temp Pulse Resp BP Pulse Ox 96.1 F L 92 16 116/65 94 11/12/17 07:19 11/12/17 07:19 11/12/17 07:47 11/12/17 07:19 11/12/17 07:47 Exam: Gen: alert and oriented in no acute distress, cachectic, answering questions appropriately Neck: no LAD, no JVD, trachea midline CV: RRR, S1 and S2 without rub, gallop, or murmur Lung: Diminished breath sounds bilaterally without wheeze or crackles, normal chest wall excursion, no tenderness to palpation or with movement Abd: soft, tender, non-distended, no hepatomegaly, no mass Skin: acyaotic, normal skin turgor Ext: mild R pedal edema, dorsalis pedis pulses 2/4 bilaterally, negative mitch' s sign bilaterally - Assessment and Plan (1) Acute respiratory failure with hypoxia Current Visit: Yes Status: Acute Assessment and Plan: Pt with chief complaint of shortness of breath during endoscopy to screen for mets to colon from RCC, on nivolumab, sees [facility] Doubt PE, CTA chest negative for PE, shows hilar AD and bronchiolitis Doubt ACS, ECG shows NSR with few PVCs, no ST elevation/depression or t wave abnormalities Likely COPD exacerbation Plan - on 80mg steroids, skyler duonebs, O2 titration with mask, resume home LABA pending sputum culture ECHO in setting of past/current chemotherapy, echo mid 2016 25% while on pazopanib, echo Mar 2017 improved to 40% while on nivolumab (2) Metastatic renal cell carcinoma to lung Current Visit: Yes Status: Acute Assessment and Plan: Sees [facility]; last visit 11/[address] Alvarez History of 10 cm mass arising from R kidney, no hx of hematuria or abd pain, + wt loss of 25 pounds in 2015-2016 CT chest showing R hilar adenopathy, atelectasis; bronchoscopy biopsy showing metastatic RCC Was on Pazopanib but developed reduced EF to 25%; switched to Nivolumab August 2016, EF improved to 40-45% seen in March 2017 echo. Admitted 11/11 for acute resp failure with hypoxia, receiving pulmonary toilet, steroids, aerosols, abx P: Echocardiogram to assess structure/output in setting of ongoing chemotherapy (3) DVT of proximal leg (deep vein thrombosis) Current Visit: Yes Status: Acute Assessment and Plan: Discovered on US this admission Mild pedal edema on right, no skin changes, no extremity tenderness; CTA negative for PE P: Currently on Heparin maintenance Consulting Heme/onc for anticoagulation needs inpt/outpatient (provoked - hx of metastatic RCC follows Dr. Alvarez), appreciate heme/onc recomendations (4) COPD exacerbation Current Visit: Yes Status: Acute Assessment and Plan: Plan as above under MDM (1). (5) DVT prophylaxis Current Visit: Yes Status: Acute Assessment and Plan: On heparin drip in setting of discovered DVT on US - Time Spent with Patient Total time spent is greater than 50% in coordination of care (as documented) at patient's floor/unit and/or counseling patient: Internal Medicine: Result - Labs CBC & Chem 7: 11/12/17 05:19 11/12/17 05:19 Labs: Short CBC 11/12/17 Range/Units 05:19 WBC 3.7 L (4.3-11.1) K/mcL Hgb 11.7 L (12.9-16.9) g/dL Hct 37.6 (37.5-50.1) % Plt Count 317 (140-400) K/mcL Neutrophils # 3.3 (1.6-8.9) K/mcL BMP 11/12/17 05:19 Sodium 137 Potassium 4.7 Chloride 94 L Carbon Dioxide 37 H BUN 13 Creatinine 0.61 L Glucose 146 H Calcium 8.9 Liver Function 11/12/17 Range/Units 05:19 Total Bilirubin 0.5 (0.3-1.0) mg/dL AST 27 (13-39) Units/L ALT 16 (7-52) Units/L Alkaline Phosphatase 93 (34-104) Units/L Albumin 2.9 L (3.5-5.7) g/dL - ABG Interpretation ABG results: PT/INR, D-dimer PT 14.1 Seconds (9.4-12.1) H 11/11/17 20:32 Consult Discharge Plan - Plan Referrals: Birdie Lin, [facility] UNIT OPERATOR [Primary Care Provider] - <Trinidad Handley - Last Filed: 11/12/17 14:33> Hospitalist Progress Note - Encounter Date of Encounter: 11/12/17 Time of Encounter: 09:55 - Exam Vitals: Temp Pulse Resp BP Pulse Ox 97.9 F 72 16 101/65 95 11/12/17 10:54 11/12/17 10:54 11/12/17 11:06 11/12/17 10:54 11/12/17 11:06 - Assessment and Plan (1) Acute respiratory failure with hypoxia Current Visit: Yes Status: Acute (2) COPD exacerbation Current Visit: Yes Status: Acute (3) Asymmetric edema of both lower extremities Current Visit: Yes Status: Acute (4) DVT prophylaxis Current Visit: Yes Status: Acute - Time Spent with Patient Total time spent is greater than 50% in coordination of care (as documented) at patient's floor/unit and/or counseling patient: Internal Medicine: Result - Labs CBC & Chem 7: 11/12/17 05:19 11/12/17 05:19 Labs: Short CBC 11/12/17 Range/Units 05:19 WBC 3.7 L (4.3-11.1) K/mcL Hgb 11.7 L (12.9-16.9) g/dL Hct 37.6 (37.5-50.1) % Plt Count 317 (140-400) K/mcL Neutrophils # 3.3 (1.6-8.9) K/mcL BMP 11/12/17 05:19 Sodium 137 Potassium 4.7 Chloride 94 L Carbon Dioxide 37 H BUN 13 Creatinine 0.61 L Glucose 146 H Calcium 8.9 Liver Function 11/12/17 Range/Units 05:19 Total Bilirubin 0.5 (0.3-1.0) mg/dL AST 27 (13-39) Units/L ALT 16 (7-52) Units/L Alkaline Phosphatase 93 (34-104) Units/L Albumin 2.9 L (3.5-5.7) g/dL - ABG Interpretation ABG results: PT/INR, D-dimer PT 14.1 Seconds (9.4-12.1) H 11/11/17 20:32 - Attending Attestation I saw evaluated and examined this patient and my medical decision-making was reviewed with the Resident Physician, Sushant Delgado. I agree with the documented findings, disposition and treatment plan as described except to any changes set forth below. We independently had [id number] contact with the patient. Patient hospitalized after he became hypoxic yesterday while undergoing colonoscopy and EGD. Today continues to have shortness of breath but is more closer to his baseline. He denies any wheezing. No chest pain or palpitations. He does feel tired and weak. Complains of epigastric abdominal discomfort. On examination, patient is awake and alert. He does appear underweight. He has decreased air entry bilaterally. Using accessory muscles. Heart sounds are normal. Lower extremity edema present greater on the right. Acute hypoxic respiratory failure on chronic hypoxia: Improved. Currently on baseline O2 supplementation. COPD exacerbation: Continue bronchodilators and steroids. Chest x-ray shows mild bronchiolitis. Epigastric abdominal pain: Etiology uncertain. Patient does not have any abnormal findings on upper GI endoscopy. Right lower extremity Deep vein thrombosis:Chronic per US. Patient currently on IV heparin. We will ask consult oncology for recommendations regarding anticoagulation. <Sushant Delgado - Last Filed: 11/12/17 13:50> (3) DVT of proximal leg (deep vein thrombosis) Qualifiers: Chronicity: chronic Laterality: right Qualified Code(s): I82.5Y1 - Chronic embolism and thrombosis of unspecified deep veins of right proximal lower extremity
[2017-11-12] MEDS: Sucralfate 1 GM TABLET PO SCH ×3 (10:09→16:13)
[2017-11-12] MEDS: Aspirin Enteric Coated 81 MG Tablet PO SCH (10:09)
[2017-11-12] MEDS: Famotidine 20 MG TABLET PO SCH (10:09)
[2017-11-12] MEDS: 0.9 % Sodium Chloride w KCl 20 MEQ/1,000 ML MLS IVC SCH (13:27)
--- NOTE | 2017-11-12 14:25 | Oncology Inp Consult Note ---
<Ernst Parada - Last Filed: 11/12/17 16:24> Date of Encounter: 11/12/17 Time of Encounter: 14:19 Assessment and Plan (1) DVT of proximal leg (deep vein thrombosis) Status: Acute Assessment and plan: Lower extremity extremity Doppler shows chronic DVT in the right superficial femoral vein. Patient states that he was never diagnosed with acute DVT and does not recall ever having symptoms of an acute DVT. In the patient's underlying malignancy and I do think it is appropriate to treat given his underlying malignancy. Currently on a heparin drip, will transition to Xarelto 15mg daily. Qualifiers: Chronicity: chronic Laterality: right Qualified Code(s): I82.5Y1 - Chronic embolism and thrombosis of unspecified deep veins of right proximal lower extremity (2) Metastatic renal cell carcinoma to lung Status: Acute Assessment and plan: Currently undergoing treatment with nivolumab. No evidence of progression seen on chest CT and pathology from upper and lower endoscopy shows no concerning findings for metastatic disease. Follow-up as an outpatient to discuss further treatment plan. Qualifiers: Laterality: unspecified laterality Qualified Code(s): C78.00 - Secondary malignant neoplasm of unspecified lung; C64.9 - Malignant neoplasm of unspecified kidney, except renal pelvis (3) Shortness of breath Status: Acute Assessment and plan: Possibly related to COPD exacerbation. No evidence of disease progression or infectious process noted on chest CT. Further management per primary - Data of Consult Patient: known to practice within the last 3 years Consult date: 11/12/17 Requesting Physician: Trinidad Handley MD Primary Care Provider: Birdie Lin CNP - Consult Narrative Reason for consult: Chronic DVT History of present illness: Mr. Abrams is a 62 year old male with history of metastatic renal cell carcinoma, lung cancer presents with shortness of breath. Patient underwent endoscopy yesterday and after his procedure had increasing shortness of breath and bilateral lower extremity swelling therefore was sent to the emergency department for evaluation. Patient reports at this time he still feels short of breath but his shortness of breath at rest as a baseline. He also reports significant shortness of breath with activity. He denies any lower extremity swelling at this time. He denies any fever, chills, chest pain. Over the last several months he denies any lower extremity pain, swelling, erythema. Patient had renal cell carcinoma with metastatic disease to mediastinal lymph nodes. Initially started Pazopanib in January 2016, this was discontinued in May 2016 due to pneumonia and a decreased EF. Patient was noted to have progression on imaging so he started nivolumab in May 2016. Patient states he has been doing well on this regimen although he feels that his shortness of breath increased when he went from every 2 week dosing to monthly dosing. Patient denies any history of venous thromboembolic disease. Past Med Surg Social Fam HX - Past Medical History Medical history: asthma, cancer, CHF, COPD, GERD, malignancy, renal disease Additional medical history: Kidney and Lung CA Psychiatric history: no psych history - Past Surgical History Surgical History: cataract Additional surgical history: lung biopsy - Social History Smoking Status: Current every day smoker Packs per day: 1/2 per week Smokeless Tobacco Status: No Alcohol use: none Drug use: none - Family History Father Living Status: Cause of : throat cancer Hx Family Cancer: Yes (esophageal cancer) Mother Living Status: Cause of : pancreatic cancer Hx Family Cancer: Yes (pancreatic) Medications and Allergies Aspirin Enteric Coated [Aspirin EC] 81 mg PO DAILY #30 tablet. 07/02/16 [Rx] Simethicone [Gas-X] 80 mg PO DAILY PRN 10/27/16 [History] Metoprolol [Lopressor] 25 mg PO DAILY 12/08/16 [History] Ipratropium/Albuterol Neb [Duoneb] 3 ml IH TID #42 inhsol 12/17/16 [Rx] Mometasone/Formoterol [Dulera 200 Mcg/5 Mcg Inhaler] 2 puff IH BID 05/11/17 [ History] Albuterol Sulfate [Proair Hfa] 2 puff IH Q4H PRN #1 hfa.aer.ad 07/12/17 [Rx] Omeprazole [PriLOSEC] 20 mg PO DAILY PRN #45 cap 07/13/17 [Rx] Ondansetron [Zofran ODT] 8 mg SL Q8H PRN #60 tab 07/19/17 [Rx] Docusate Sodium [Colace] 100 mg PO BID #60 capsule 09/14/17 [Rx] ALPRAZolam [Xanax 0.25 MG Tablet] 0.25 mg PO TID PRN 30 Days #90 tablet [Rx] OxyCODONE Immed Rel [Roxicodone 10 MG] 10 mg PO TID PRN 30 Days #90 tab [Rx] Sucralfate [Carafate] 1 gm PO TID #120 tablet 10/12/17 [Rx] raNITIdine HCl [Zantac] 150 mg PO DAILY 11/05/17 [History] 3 Allergy/AdvReac Type Severity Reaction Status Date / Time No Known Allergies Allergy Verified 11/05/17 13:28 Constitutional: Absent: chills, fever(s) Nose, mouth and throat: Absent: sore throat Cardiovascular: Present: chest pain, dyspnea, edema. Absent: syncope Respiratory: Present: cough, dyspnea, dyspnea on exertion, chest congestion. Absent: hemoptysis, wheezing Gastrointestinal: Present: diarrhea, nausea, vomiting Integumentary: Absent: new lesions, skin pain, swelling Hematologic/Lymphatic: Absent: easy bleeding, easy bruising, lymphadenopathy Oncology - Exam - Constitutional Vitals: Temp Pulse Resp BP Pulse Ox 97.9 F 72 16 101/65 95 11/12/17 10:54 11/12/17 10:54 11/12/17 11:06 11/12/17 10:54 11/12/17 11:06 General appearance: mild distress (respiratory) - Head Head exam: Present: atraumatic, normal inspection, normocephalic - Eye Eye exam: Present: EOMI - ENT ENT exam: Present: mucous membranes moist - Respiratory Respiratory exam: Present: decreased breath sounds, wheezes (occasional bilaterally) - Cardiovascular Cardiovascular exam: Present: RRR. Absent: diastolic murmur, systolic murmur - GI/Abdominal GI/Abdominal exam: Present: normal bowel sounds, soft. Absent: tenderness - Extremities Exam Extremities exam: Present: normal inspection. Absent: pedal edema, tenderness - Neurological Exam Neurological exam: Present: alert, oriented X3, no focal deficits - Skin Skin exam: Present: dry, intact, warm Oncology - Results Labs: 3 11/12/17 11/12/17 11/12/17 05:19 05:19 05:19 WBC 3.7 L RBC 4.38 Hgb 11.7 L Hct 37.6 MCV 85.8 MCH 26.7 L MCHC 31.1 L RDW 16.0 H Plt Count 317 MPV 9.7 Immature Gran % 0.3 Seg Neutrophils % 90.3 Lymphocytes % 3.5 Monocytes % 5.9 Eosinophils % 0.0 Basophils % 0.0 Neutrophils # 3.3 Lymphocytes # 0.1 L Monocytes # 0.2 Eosinophils # 0.0 Basophils # 0.0 Platelet Estimate Normal Heparin Anti-Xa, Unfract 0.06 L Sodium 137 Potassium 4.7 Chloride 94 L Carbon Dioxide 37 H BUN 13 Creatinine 0.61 L Est GFR ( Amer) > 60 Est GFR (Non-Af Amer) > 60 BUN/Creatinine Ratio 21 Glucose 146 H Calculated Osmolality 287 Calcium 8.9 Magnesium 1.8 Total Bilirubin 0.5 AST 27 ALT 16 Alkaline Phosphatase 93 Serum Total Protein 6.6 Albumin 2.9 L Globulin 3.7 H Albumin/Globulin Ratio 0.8 L Consult Discharge Plan - Plan Referrals: Birdie Lin CNP [Primary Care Provider] - <Evelyn Che - Last Filed: 11/12/17 16:54> Date of Encounter: 11/12/17 - Data of Consult Requesting Physician: Trinidad Handley MD Primary Care Provider: Birdie Lin CNP - Consult Narrative History of present illness: Mr. Abrams is a 62 year old male with metastatic kidney cancer was on immunotherapy which was held due to GI symptoms, status post endoscopy colonoscopy upper GI endoscopy showed moderate gastritis, developed hypoxemia CT imaging did not show any pulmonary embolism, showed stable adenopathy and kidney mass, patient hospitalized for shortness of breath symptoms. He also had a venous Doppler that showed right superficial vein thrombosis which appears to be chronic. Due to chronic thrombosis, history of metastatic malignancy needing long-term treatment, will plan oral anticoagulation therapy with Xarelto 15 mg maintenance dose. He also has gastritis and abdominal symptoms of pain due to malignancy possibly from gastritis. We will monitor hemoglobin and hematocrit closely as an outpatient. Imaging findings reviewed with patient he is currently on IV heparin and IV antibiotics which can be transitioned as his clinical status is stable. I examined this patient and my medical decision-making was reviewed with resident physician, Ernst Parada I agree with the documented findings, disposition and treatment plan as described except to the extent set forth below. Oncology - Exam - Constitutional Vitals: Temp Pulse Resp BP Pulse Ox 97.9 F 72 18 101/65 95 11/12/17 10:54 11/12/17 10:54 11/12/17 15:25 11/12/17 10:54 11/12/17 15:25 Oncology - Results Labs: 3 11/12/17 11/12/17 11/12/17 14:44 05:19 05:19 WBC RBC Hgb Hct MCV MCH MCHC RDW Plt Count MPV Immature Gran % Seg Neutrophils % Lymphocytes % Monocytes % Eosinophils % Basophils % Neutrophils # Lymphocytes # Monocytes # Eosinophils # Basophils # Platelet Estimate Heparin Anti-Xa, Unfract 0.08 L 0.06 L Sodium 137 Potassium 4.7 Chloride 94 L Carbon Dioxide 37 H BUN 13 Creatinine 0.61 L Est GFR ( Amer) > 60 Est GFR (Non-Af Amer) > 60 BUN/Creatinine Ratio 21 Glucose 146 H Calculated Osmolality 287 Calcium 8.9 Magnesium 1.8 Total Bilirubin 0.5 AST 27 ALT 16 Alkaline Phosphatase 93 Serum Total Protein 6.6 Albumin 2.9 L Globulin 3.7 H Albumin/Globulin Ratio 0.8 L 3 11/12/17 05:19 WBC 3.7 L RBC 4.38 Hgb 11.7 L Hct 37.6 MCV 85.8 MCH 26.7 L MCHC 31.1 L RDW 16.0 H Plt Count 317 MPV 9.7 Immature Gran % 0.3 Seg Neutrophils % 90.3 Lymphocytes % 3.5 Monocytes % 5.9 Eosinophils % 0.0 Basophils % 0.0 Neutrophils # 3.3 Lymphocytes # 0.1 L Monocytes # 0.2 Eosinophils # 0.0 Basophils # 0.0 Platelet Estimate Normal Heparin Anti-Xa, Unfract Sodium Potassium Chloride Carbon Dioxide BUN Creatinine Est GFR ( Amer) Est GFR (Non-Af Amer) BUN/Creatinine Ratio Glucose Calculated Osmolality Calcium Magnesium Total Bilirubin AST ALT Alkaline Phosphatase Serum Total Protein Albumin Globulin Albumin/Globulin Ratio - Attending Attestation I examined this patient and my medical decision-making was reviewed with resident physician, Dr Ernst Parada. I agree with the documented findings, disposition and treatment plan as described except to the extent set forth below. Inpatient Charges Provider: Dr. Andra Che Consult Charges: [id number]
[2017-11-12] MEDS: *HR* Rivaroxaban 15 MG TABLET PO SCH (17:30)
[2017-11-12] MEDS: Levofloxacin 500 MG/100 ML 500 MG/100 ML BAG IVPB SCH (21:26)
[2017-11-13] MEDS: ALPRAZolam 0.25 MG TABLET PO PRN ×3 (01:26→20:35)
[2017-11-13] MEDS: Ipratropium/Albuterol Neb 3 ML IH SCH ×6 (03:27→23:48)
[2017-11-13 05:27] LABS: Hematocrit 33.1 % (37.5-50.1); Hemoglobin 10.2 g/dL (12.9-16.9); Mean Corpuscular HGB Conc 30.8 g/dL (31.6-35.5); Mean Corpuscular Hemoglobin 26.3 pg (28.0-33.3); Mean Corpuscular Volume 85.3 fL (83.0-100.0); Mean Platelet Volume 9.5 fL (9.4-12.4); Platelet Count 318 K/mcL (140-400); Red Blood Count 3.88 M/mcL (4.19-5.50); Red Cell Distribution Width 16.2 % (11.5-14.5)
[2017-11-13] MEDS: methylPREDNISolone 125 MG/2 ML VIAL IVP SCH ×2 (05:48→18:17)
[2017-11-13 05:52] LABS: BUN/Creatinine Ratio 24 (6-26); Blood Urea Nitrogen 13 mg/dL (8-23); Calcium 8.7 mg/dL (8.6-10.3); Carbon Dioxide 35 mEq/L (23-29); Chloride 98 mEq/L (98-107); Glucose 125 mg/dL (70-105); Osmolality,Calculated 286 (280-300); Potassium 4.4 mEq/L (3.5-5.1); Sodium 137 mEq/L (136-145); eGFR For Non-African Americans > 60 (> 60)
[2017-11-13] MEDS: Budesonide/Formoterol 160/4.5 1 PUFF INH IH SCH ×2 (07:38→20:36)
[2017-11-13] MEDS: Metoprolol XL (24 HR) Succ 25 MG TAB.ER.24H PO SCH (09:27)
[2017-11-13] MEDS: Famotidine 20 MG TABLET PO SCH (09:27)
[2017-11-13] MEDS: Aspirin Enteric Coated 81 MG Tablet PO SCH (09:27)
[2017-11-13] MEDS: Sucralfate 1 GM TABLET PO SCH ×3 (09:28→18:17)
[2017-11-13] MEDS: *HR* OxyCODONE Immed Rel 5 MG TABLET PO PRN (09:28)
--- NOTE | 2017-11-13 11:00 | Internal Med Progress Note ---
<Trinidad Handley - Last Filed: 11/13/17 11:05> Hospitalist Progress Note - Encounter Date of Encounter: 11/13/17 Time of Encounter: 09:20 - Exam Vitals: Temp Pulse Resp BP Pulse Ox 97.9 F 61 19 130/63 96 11/13/17 07:52 11/13/17 07:52 11/13/17 07:52 11/13/17 07:52 11/13/17 07:52 - Assessment and Plan (1) Acute respiratory failure with hypoxia Current Visit: Yes Status: Acute (2) COPD exacerbation Current Visit: Yes Status: Acute (3) Asymmetric edema of both lower extremities Current Visit: Yes Status: Acute (4) DVT prophylaxis Current Visit: Yes Status: Acute - Time Spent with Patient Total time spent is greater than 50% in coordination of care (as documented) at patient's floor/unit and/or counseling patient: Internal Medicine: Result - Labs CBC & Chem 7: 11/13/17 04:55 11/13/17 04:55 Labs: Short CBC 11/13/17 Range/Units 04:55 WBC 11.7 H D (4.3-11.1) K/mcL Hgb 10.2 L D (12.9-16.9) g/dL Hct 33.1 L (37.5-50.1) % Plt Count 318 (140-400) K/mcL BMP 11/13/17 04:55 Sodium 137 Potassium 4.4 Chloride 98 Carbon Dioxide 35 H BUN 13 Creatinine 0.54 L Glucose 125 H Calcium 8.7 - ABG Interpretation ABG results: PT/INR, D-dimer PT 14.1 Seconds (9.4-12.1) H 11/11/17 20:32 Consult Discharge Plan - Plan Referrals: Birdie Lin, [employer]PERATOR [Primary Care Provider] - - Attending Attestation I saw evaluated and examined this patient and my medical decision-making was reviewed with the Resident Physician, Leonor Fitzpatrick. I agree with the documented findings, disposition and treatment plan as described except to any changes set forth below. We independently had [id number] contact with the patient. Patient continues to have shortness of breath and difficulty breathing but reports that it is mainly due to poorly controlled pain. Continues to report abdominal discomfort. No fevers or chills overnight. No nausea or vomiting. On exam, patient is awake and alert and oriented. Underweight. Posterior entry bilaterally. Not using accessory muscles today. Mild bilateral wheezing. Heart sounds are normal. Right lower extremity edema Acute hypoxic respiratory failure on chronic hypoxia: Stable. Continue O2 supplementation. Awaiting 2-D echocardiogram results. COPD exacerbation: Continue systemic steroids and bronchodilators. We will transition to oral steroids. Plan for slow taper when patient is ready for discharge. Epigastric abdominal pain: Supportive care and pain control. Will increase frequency of narcotic medications as this appears to be chronic cancer related pain. Right lower extremity Deep vein thrombosis:Chronic per US. Per hematology recommendations, patient has been transitioned to Xarelto <Leonor Fitzpatrick N - Last Filed: 11/13/17 14:00> Hospitalist Progress Note - Encounter Date of Encounter: 11/13/17 Time of Encounter: 11:00 - Subjective Interval History: Mr. Abrams is a 62-year old male who presented to the ED on 11/11 for acute onset SOB that occurred during an outpatient endoscopy procedure. Past medical history is significant for renal cell carcinoma with metastasis to the lung, which was diagnosed via bronchoscopic biopsy in 2017. He is seen by [facility]. Since his admission, CTA was negative for PE and ECG demonstrated NSR without ST changes. He was started on steroids, inhaled bronchodilators, supplemental oxygen, and levaquin. He had some lower extremity edema concerning for DVT - doppler demonstrated a previously unknown but chronic proximal DVT. He was started on a heparin drip and has been transitioned to xarelto. On evaluation today, Mr. Abrams appears to be uncomfortable secondary to pain, which he states is affecting both his lower back and flank. He states that this is similar to the pain he normally experiences with his metastatic disease; however, he feels like it is lasting longer than usual. He states that his oncologist has recently increased his home pain medication to oxycodone 10mg. He reports continued shortness of breath, which he says he thinks is secondary to pain. He denies any other complaints or concerns at this time. - Exam Vitals: Temp Pulse Resp BP Pulse Ox 97.9 F 61 19 130/63 96 11/13/17 07:52 11/13/17 07:52 11/13/17 07:52 11/13/17 07:52 11/13/17 07:52 Exam: * General: Ill-appearing, cachectic adult male in mild distress secondary to pain. He answers questions appropriately. * HEENT: Atraumatic and normocephalic. Nasal canula in place. * Cardiovascular: Sinus tachycardia. No murmurs, rubs, or gallops. * Respiratory: CTA bilaterally. * Abdomen: Soft and nontender. No distention or abdominal mass. * Extremities: No clubbing or cyanosis. Minimal bilateral pedal edema. - Assessment and Plan (1) Acute respiratory failure with hypoxia Current Visit: Yes Status: Acute Assessment and Plan: Patient presented with acutely worsening SOB on admission. He has been treated with methylprednisolone 80mg IV Q12H, scheduled duonebs, levaquin 500mg daily, and supplemental oxygen. He has had good improvement in symptoms. He does reports some dyspnea today; however, he expresses that he thinks this is likely exacerbated by his acute pain. Plan to increase his PRN oxycodone 10mg from TID to Q6H. Will continue IV steroids and duonebs today, along with levaquin, with transition to PO steroids tomorrow in anticipation of discharge. Plan to proceed with a slow taper of oral steroids at discharge. (2) COPD exacerbation Current Visit: Yes Status: Acute Assessment and Plan: As above. (3) Metastatic renal cell carcinoma to lung Current Visit: Yes Status: Acute Assessment and Plan: Patient experiences chronic pain secondary to metastatic disease. He states that his oncologist increased his home pain medication to oxycodone 10mg TID; however, he is still visibly uncomfortable secondary to pain. Increased pain medication to Q6H PRN in hopes of improving respiratory status as well. Patient will follow up with [facility] after discharge. (4) Asymmetric edema of both lower extremities Current Visit: Yes Status: Acute Assessment and Plan: Lower extremity doppler exam demonstrated a previously unknown, but chronic proximal DVT in the right lower extremity. He was started on a heparin drip, and has since been transitioned to xarelto 15mg daily. Will continue this medication upon hospital discharge. (5) DVT prophylaxis Current Visit: Yes Status: Acute Assessment and Plan: Xarelto 15mg daily. - Time Spent with Patient Total time spent is greater than 50% in coordination of care (as documented) at patient's floor/unit and/or counseling patient: Internal Medicine: Result - Labs CBC & Chem 7: 11/13/17 04:55 11/13/17 04:55 Labs: Short CBC 11/13/17 Range/Units 04:55 WBC 11.7 H D (4.3-11.1) K/mcL Hgb 10.2 L D (12.9-16.9) g/dL Hct 33.1 L (37.5-50.1) % Plt Count 318 (140-400) K/mcL BMP 11/13/17 04:55 Sodium 137 Potassium 4.4 Chloride 98 Carbon Dioxide 35 H BUN 13 Creatinine 0.54 L Glucose 125 H Calcium 8.7 - ABG Interpretation ABG results: PT/INR, D-dimer PT 14.1 Seconds (9.4-12.1) H 11/11/17 20:32 <Leonor Fitzpatrick - Last Filed: 11/13/17 14:00> (3) Metastatic renal cell carcinoma to lung Qualifiers: Laterality: unspecified laterality Qualified Code(s): C78.00 - Secondary malignant neoplasm of unspecified lung; C64.9 - Malignant neoplasm of unspecified kidney, except renal pelvis
--- NOTE | 2017-11-13 11:08 | Oncology Inp Progress Note ---
Date of Encounter: 11/13/17 Time of Encounter: 09:00 (1) Metastatic renal cell carcinoma to lung Current Visit: Yes Status: Acute Assessment and plan: On immunotherapy with stable disease, s/p scope for epigastric pain moderate gastritis on PPI Oxycodone has been increased 10 q6 by hospitalist. Continue O2 for comfort. Will consider CT abd with IV contrast for f/u on adenopathy/kidney mass Plan dw patient Qualifiers: Laterality: unspecified laterality Qualified Code(s): C78.00 - Secondary malignant neoplasm of unspecified lung; C64.9 - Malignant neoplasm of unspecified kidney, except renal pelvis Oncology: Subj Interval history: Pain upper abd. Pain is affecting breathing. No nausea. s/p scope - Constitutional Vitals: Vital Signs Temp Pulse Resp BP Pulse Ox 11/13/17 07:52 97.9 F 61 19 130/63 96 11/13/17 04:26 97.8 F 93 16 110/63 95 11/13/17 03:27 16 95 11/13/17 00:22 98.5 F 97 17 118/70 96 11/12/17 19:57 20 96 11/12/17 19:36 98.8 F 82 17 111/70 97 11/12/17 15:25 18 95 11/12/17 11:06 16 95 Intake and Output 11/12/17 11/13/17 11/13/17 23:59 07:59 15:59 Intake Total 199 / 199 Balance 199 / 199 Intake: IV Fluids 159 / 159 Heparin 25,000 UNIT/500 ML D5W 159 / 159 25,000 unit In 500 ml @ 12 UNIT /KG/HR 12.301 mls/hr IVC .Q24H [facility] Rx#:[id number] Oral 40 / 40 Other: Meal Dinner Percent of Meal Consumed 50% Weight 48 kg Patient Weight 11/13/17 23:59 Weight 48 kg General appearance: thin - Head Head exam: Present: atraumatic, normal inspection - Eye Eye exam: Present: sclera anicteric - Neck Neck exam: Present: full ROM - Respiratory Respiratory exam: Present: CTAB - Cardiovascular Cardiovascular exam: Present: +S1, +S2 - GI/Abdominal GI/Abdominal exam: Present: normal bowel sounds, soft - Extremities Exam Extremities exam: Present: normal inspection - Neurological Exam Neurological exam: Present: alert, CN II-XII intact, oriented X3 Oncology: Obj Data - Labs CBC & Chem 7: 11/13/17 04:55 11/13/17 04:55 Labs: Laboratory Results - last 24 hr 11/12/17 11/13/17 11/13/17 14:44 04:55 04:55 WBC 11.7 H D RBC 3.88 L Hgb 10.2 L D Hct 33.1 L MCV 85.3 MCH 26.3 L MCHC 30.8 L RDW 16.2 H Plt Count 318 MPV 9.5 Heparin Anti-Xa, Unfract 0.08 L 1.29 H* Sodium Potassium Chloride Carbon Dioxide BUN Creatinine Est GFR ( Amer) Est GFR (Non-Af Amer) BUN/Creatinine Ratio Glucose Calculated Osmolality Calcium 11/13/17 04:55 WBC RBC Hgb Hct MCV MCH MCHC RDW Plt Count MPV Heparin Anti-Xa, Unfract Sodium 137 Potassium 4.4 Chloride 98 Carbon Dioxide 35 H BUN 13 Creatinine 0.54 L Est GFR ( Amer) > 60 Est GFR (Non-Af Amer) > 60 BUN/Creatinine Ratio 24 Glucose 125 H Calculated Osmolality 286 Calcium 8.7 - ABG Interpretation ABG results: PT/INR, D-dimer PT 14.1 Seconds (9.4-12.1) H 11/11/17 20:32 Consult Discharge Plan - Plan Referrals: Birdie Lin CNP [Primary Care Provider] - Inpatient Charges Provider: Dr. Andra Che Follow Up: [id number]
--- NOTE | 2017-11-13 15:41 | Electrocardiograph Report ---
[address] [place], [place] [address] Test Date: 2017-11-11 Pat Name: Heri Abrams Department: [id number] Room: 2A Gender: M Shoe Laster: : 1955 Requested By: Mansoor Winslow Order Number: [id number] Reading MD: Po Menjivar Measurements Intervals [place] Rate: 84 P: 85 [place]: 136 QRS: 264 QRSD: 99 T: 77 QT: 376 QTc: 445 Interpretive Statements Sinus arrhythmia Multiple ventricular premature complexes Biatrial enlargement Left anterior fascicular block Pulmonary disease pattern with right ventricular hypertrophy Electronically Signed On 11-13-2017 15:39:51 EDT by Po Menjivar
[2017-11-13] MEDS: *HR* Rivaroxaban 15 MG TABLET PO SCH (18:17)
[2017-11-13] MEDS: Levofloxacin 500 MG/100 ML 500 MG/100 ML BAG IVPB SCH (22:10)
[2017-11-14] MEDS: *HR* OxyCODONE Immed Rel 5 MG TABLET PO PRN ×2 (01:25→08:26)
[2017-11-14] MEDS: Ipratropium/Albuterol Neb 3 ML IH SCH ×3 (04:07→11:24)
--- NOTE | 2017-11-14 08:07 | Discharge Summary ---
<Leonor Fitzpatrick N - Last Filed: 11/14/17 13:42> - NOTES TO OUTPATIENT PROVIDER Notes to Outpatient Provider: Patient was treated for COPD exacerbation. He required increase in pain medication for metastatic disease as his pain was causing increased difficulty in breathing. He was discharged with oxycodone 10mg Q6H PRN. He was started on xarelto for previously unknown, but chronic proximal DVT, with Rx to continue after discharge. Orders not resulted at time of discharge: Pending orders 11/14/17 07:13 BMP [Basic Metabolic Panel] AM 0400 CBC [Complete Blood Count] [HEME] AM 0400 Date of Encounter: 11/14/17 Time of Encounter: 08:07 - Discharge Diagnosis (1) Acute respiratory failure with hypoxia Priority: Primary Status: Acute (2) COPD exacerbation Priority: Secondary Status: Acute (3) Asymmetric edema of both lower extremities Priority: Secondary Status: Acute (4) DVT prophylaxis Priority: Secondary Status: Acute (5) Metastatic renal cell carcinoma to lung Priority: Secondary Status: Acute Qualifiers: Laterality: unspecified laterality Qualified Code(s): C78.00 - Secondary malignant neoplasm of unspecified lung; C64.9 - Malignant neoplasm of unspecified kidney, except renal pelvis Hospital course: Mr. Abrams is a 62-year old male who presented to the ED on 11/11 for acute onset SOB that occurred during an outpatient endoscopy procedure. Past medical history is significant for renal cell carcinoma with metastasis to the lung, which was diagnosed via bronchoscopic biopsy in 2017. He is seen by [facility]. Since his admission, CTA was negative for PE and ECG demonstrated NSR without ST changes. He was started on steroids, inhaled bronchodilators, supplemental oxygen, and levaquin. He had some lower extremity edema concerning for DVT - doppler demonstrated a previously unknown but chronic proximal DVT. He was started on a heparin drip and has been transitioned to xarelto. Mr. Abrams continued to be uncomfortable secondary to pain affecting both his lower back and flank. He stated that it was similar to the pain he normally experiences with his metastatic disease; however, he felt like it was lasting longer than usual. He reported continued shortness of breath, which he stated he thought was secondary to pain. His pain medication was increased to oxycodone 10mg Q6H PRN. He reported good improvement in breathing with medication change and was discharged on new pain medication dose. He was also discharged with xarelto and a long oral steroid taper. He was instructed to follow up with his PCP and oncology team later in the week. Patient was alert and oriented x 3 and voiced understanding of these instructions. Discharge discussed with: patient, nurse - Time Spent with Patient Total time spent providing and/or coordinating discharge services: - Discharge Medications Prescriptions: OxyCODONE Immed Rel [Roxicodone 10 MG] 10 mg PO Q6H PRN 30 Days #14 tab PRN Reason: Pain predniSONE [PredniSONE] 10 mg PO DAILY #30 tablet Rivaroxaban [Xarelto] 15 mg PO 1700 #30 tablet Home Medications: Aspirin Enteric Coated [Aspirin EC] 81 mg PO DAILY #30 tablet. 07/02/16 [Rx] Simethicone [Gas-X] 80 mg PO DAILY PRN 10/27/16 [History] Ipratropium/Albuterol Neb [Duoneb] 3 ml IH TID #42 inhsol 12/17/16 [Rx] Mometasone/Formoterol [Dulera 200 Mcg/5 Mcg Inhaler] 2 puff IH BID 05/11/17 [ History] Albuterol Sulfate [Proair Hfa] 2 puff IH Q4H PRN #1 hfa.aer.ad 07/12/17 [Rx] Omeprazole [PriLOSEC] 20 mg PO DAILY PRN #45 cap 07/13/17 [Rx] Ondansetron [Zofran ODT] 8 mg SL Q8H PRN #60 tab 07/19/17 [Rx] Docusate Sodium [Colace] 100 mg PO BID #60 capsule 09/14/17 [Rx] ALPRAZolam [Xanax 0.25 MG Tablet] 0.25 mg PO TID PRN 30 Days #90 tablet [Rx] Sucralfate [Carafate] 1 gm PO TID #120 tablet 10/12/17 [Rx] raNITIdine HCl [Zantac] 150 mg PO DAILY 11/05/17 [History] Metoprolol Succinate [Toprol Xl] 25 mg PO DAILY 11/12/17 [History] OxyCODONE Immed Rel [Roxicodone 10 MG] 10 mg PO Q6H PRN 30 Days #14 tab [Rx] Rivaroxaban [Xarelto] 15 mg PO 1700 #30 tablet 11/14/17 [Rx] predniSONE [PredniSONE] 10 mg PO DAILY #30 tablet 11/14/17 [Rx] Allergies/Adverse Reactions: 3 Allergy/AdvReac Type Severity Reaction Status Date / Time No Known Allergies Allergy Verified 11/05/17 13:28 Date of admission: 11/11/17 22:28 Primary care physician: Birdie Lin CNP Consults: 11/11/17 23:55 Consult to Nutrition [CONS] Routine Comment: Consulting Provider: NUTRITION Reason for Dietary Consult: MST Score 11/12/17 11:52 Consult to Oncology Hematology [CONS] Routine Consulting Provider: William Orozco Jr Reason for Consult: hx metastatic RCC to lung, on nivolumab, new finding of superficial femoral dvt (read as chronic), currently on heparin protocol at 30U/kg, consulting for recommendations for anticoagulation, thank you Time Notified: 11:45 Call Completed: Yes Discharging clinician: Leonor Fitzpatrick Anticipated date of discharge: 11/14/17 - Constitutional Vitals: Temp Pulse Resp BP Pulse Ox 97.8 F 97 18 101/55 95 11/14/17 04:52 11/14/17 04:52 11/14/17 04:52 11/14/17 04:52 11/14/17 04:52 General appearance: Present: cooperative, A&O X 3, pleasant, answers questions appropriately Exam: * General: Ill-appearing, cachectic adult male in no acute distress. He answers questions appropriately. * HEENT: Atraumatic and normocephalic. Nasal canula in place. * Cardiovascular: Sinus tachycardia. No murmurs, rubs, or gallops. * Respiratory: CTA bilaterally. * Abdomen: Soft and nontender. No distention or abdominal mass. * Extremities: No clubbing or cyanosis. Minimal bilateral pedal edema. - Patient Status Disposition: Home, Self-Care Condition: Good Overall status at discharge: patient is progressing back to baseline - Discharge Instructions Instructions: Chronic Obstructive Pulmonary Disease (DC) Follow Up With: Birdie Lin CNP [Primary Care Provider] - (Web request completed 11/14/2017) Additional Instructions: Continue taking prednisone as follows: Take 4 tablets for 3 days, then take 3 tablets for 3 days, then take 2 tablets for 3 days, then take 1 tablet for 3 days. Take oxycodone 10mg every 6 hours as needed for pain. Continue taking home medications. Continue taking xarelto 15mg every day. Follow up with your PCP in 3-5 days. Follow up with oncology after discharge. Return to the emergency department if symptoms worsen or if new concerns arise. - Diet and Activity Diet: advance to your usual diet <Trinidad Handley - Last Filed: 11/14/17 15:02> Date of Encounter: 11/14/17 Time of Encounter: 10:20 - Discharge Diagnosis (1) Acute respiratory failure with hypoxia Status: Acute (2) COPD exacerbation Status: Acute (3) Asymmetric edema of both lower extremities Status: Acute (4) DVT prophylaxis Status: Acute (5) Metastatic renal cell carcinoma to lung Status: Acute Qualifiers: Laterality: unspecified laterality Qualified Code(s): C78.00 - Secondary malignant neoplasm of unspecified lung; C64.9 - Malignant neoplasm of unspecified kidney, except renal pelvis Hospital course: Mr. Abrams is a 62 year old male - Time Spent with Patient Total time spent providing and/or coordinating discharge services: Less than 30 minutes (25 min) Date of admission: 11/11/17 22:28 Primary care physician: Birdie iLn CNP Consults: 11/11/17 23:55 Consult to Nutrition [CONS] Routine Comment: Consulting Provider: NUTRITION Reason for Dietary Consult: MST Score 11/12/17 11:52 Consult to Oncology Hematology [CONS] Routine Consulting Provider: William Orozco Jr Reason for Consult: hx metastatic RCC to lung, on nivolumab, new finding of superficial femoral dvt (read as chronic), currently on heparin protocol at 30U/kg, consulting for recommendations for anticoagulation, thank you Time Notified: 11:45 Call Completed: Yes - Constitutional Vitals: Temp Pulse Resp BP Pulse Ox 98.0 F 90 17 118/74 90 11/14/17 12:17 11/14/17 12:17 11/14/17 12:17 11/14/17 12:17 11/14/17 12:17 - Neck Neck exam general surgery: Present: supple, trachea midline. Absent: lymphadenopathy - Respiratory Respiratory exam: Present: prolonged expiratory phase, wheezes. Absent: accessory muscle use, rales, rhonchi - Cardiovascular Cardiovascular exam: Present: RRR, +S1, +S2. Absent: diastolic murmur, gallop, rubs, systolic murmur - GI/Abdominal GI/Abdominal exam: Present: normal bowel sounds, soft, no peritoneal signs. Absent: distended, tenderness - Attending Attestation I saw, evaluated and examined this patient and my medical decision-making was reviewed with the Resident Physician, Leonor Fitzpatrick. I agree with the documented findings, disposition and treatment plan as described except to any changes set forth below. We independently had [id number] contact with the patient. Patient was hospitalized here with acute respiratory failure while undergoing upper GI endoscopy. He was diagnosed with acute COPD exacerbation was treated with bronchodilators, steroids. Patient also had asymmetrical pedal edema on the right and he underwent venous Doppler which showed chronic DVT in the superficial femoral vein. He was started on anticoagulation per oncology recommendations. Patient's condition has slowly improved and he feels well enough to be discharged home today. He will continue home oxygen and steroid taper. He will be discharged home on anticoagulation with Xarelto per hematology recommendations.
[2017-11-14] MEDS: Budesonide/Formoterol 160/4.5 1 PUFF INH IH SCH (08:08)
[2017-11-14 08:09] LABS: BUN/Creatinine Ratio 29 (6-26); Blood Urea Nitrogen 14 mg/dL (8-23); Calcium 8.6 mg/dL (8.6-10.3); Carbon Dioxide 38 mEq/L (23-29); Chloride 99 mEq/L (98-107); Glucose 108 mg/dL (70-105); Osmolality,Calculated 289 (280-300); Potassium 3.9 mEq/L (3.5-5.1); Sodium 139 mEq/L (136-145); eGFR For Non-African Americans > 60 (> 60)
[2017-11-14 08:18] LABS: Hematocrit 34.5 % (37.5-50.1); Hemoglobin 10.5 g/dL (12.9-16.9); Immature Granulocytes % 0.3 % (0-4); Lymphocytes # 0.2 K/mcL (0.6-4.6); Lymphocytes % 2.4 %; Mean Corpuscular HGB Conc 30.4 g/dL (31.6-35.5); Mean Corpuscular Hemoglobin 26.3 pg (28.0-33.3); Mean Corpuscular Volume 86.5 fL (83.0-100.0); Mean Platelet Volume 9.6 fL (9.4-12.4); Monocytes # 0.8 K/mcL (0.0-1.3); Monocytes % 8.3 %; Neutrophils # 8.9 K/mcL (1.6-8.9); Platelet Count 339 K/mcL (140-400); Red Blood Count 3.99 M/mcL (4.19-5.50); Red Cell Distribution Width 16.5 % (11.5-14.5)
[2017-11-14] MEDS: ALPRAZolam 0.25 MG TABLET PO PRN (08:26)
[2017-11-14] MEDS: Sucralfate 1 GM TABLET PO SCH ×2 (08:26→11:35)
[2017-11-14] MEDS: Metoprolol XL (24 HR) Succ 25 MG TAB.ER.24H PO SCH (08:27)
[2017-11-14] MEDS: Aspirin Enteric Coated 81 MG Tablet PO SCH (08:27)
[2017-11-14] MEDS: Famotidine 20 MG TABLET PO SCH (08:28)
[2017-11-14] MEDS ORDERED: predniSONE 20 MG TABLET PO SCH (09:00)
[2017-11-14 12:18] VITALS: BP 118/74
== END 2017-11-14 13:32 | disposition home or self-care (01) ==
LOC: 2ANU 15:34 → EMEROOARM 15:34 → SUATTDRO 22:28 → 2ANU 23:15
PROVIDERS: ADMIT Internal Medicine; ATTEND Internal Medicine